=== PATIENT | male | born 1945 | race Caucasian/White ===

== ENCOUNTER 2016-08-21 17:31 | Emergency (ER) | payer MEDICARE ==
[~2016-08-21] VITALS: Ht 172.7 cm; Wt 93.0 kg
[~2016-08-21 17:31] MED LIST: AMBI12.52 PO; AMBI5TAB OR; AMLO10TA OR; AMLO5TAB OR; ASPI81TA83 OR; CIPR500T89 PO; DICY20TA PO; DICY20TA11 PO; FLAG500T PO; IMIT50TA PO; LISI10TA4 OR; Lortab PO; NORCOBULK PO; OMEP40CA2 PO; Prevacid PO; SIMV20TA2 OR; SUMA20SP; SUMA20SP PO; TYLE325T5 PO; ZOCO40TA PO
[2016-08-21 17:32] VITALS: BP 151/83
[2016-08-21] MEDS ORDERED: SERT-155 PO (17:43)
[2016-08-21] MEDS ORDERED: ATEN25TA PO (17:43)
[2016-08-21] MEDS ORDERED: TAMSULOSIN PO (17:43)
[2016-08-21] MEDS ORDERED: methylPREDNISolone INJ 125 MG/2 ML VIAL (J2930) IM ONE (18:00)
[2016-08-21] MEDS ORDERED: KETOROLAC 60 MG/2 ML VIAL (J1885) IM ONE (18:00)
--- NOTE | 2016-08-21 18:29 | REP ---
Lumbar spine five views: Comparison 11/27/2015. There is advanced degenerative disc disease at L 3-4, 4-5 and 5- S1. There are intervertebral disc prosthesis and L4-5 and 05/06. This is unchanged. I suspect there are bilateral laminectomies at L 4 and L5. This is unchanged. There is moderate degenerative disc disease at L1-2 and L2-3. There is a Schmorl's node in the superior endplate of L3. These findings are unchanged. Vertebral body heights and alignment are normal. There is no spondylolysis or spondylolisthesis. There is mild scoliosis convex left. The pedicles, facets and sacroiliac articulations are unremarkable. There is no significant change from the prior study. Signed by Aramis Ulloa MD 08/21/2016 06:20 P
[2016-08-21] MEDS ORDERED: HYDR-3713 PO (18:45)
== END 2016-08-21 19:10 | disposition home or self-care (01) ==
LOC: M ED 17:58
DX: M54.32 Sciatica, left side (principal); I10 Essential (primary) hypertension; G89.29 Other chronic pain; Z88.5 Allergy status to narcotic agent; Z79.82 Long term (current) use of aspirin; Z79.899 Other long term (current) drug therapy; K57.32 Diverticulitis of large intestine without perforation or abscess without bleeding
CPT/HCPCS: 72110; 96372; 99281; J1885; J2930

== ENCOUNTER 2016-08-24 09:44 | Emergency (ER) | payer MEDICARE ==
[~2016-08-24] VITALS: Ht 172.7 cm; Wt 93.0 kg
[2016-08-24 09:44] VITALS: BP 153/70
[~2016-08-24 09:44] MED LIST changes: +ATEN25TA PO; +HYDR-3713 PO; +SERT-155 PO; +TAMSULOSIN PO
[2016-08-24] MEDS ORDERED: GABA-283 PO (09:58)
[2016-08-24] MEDS ORDERED: MORPHINE 4 MG/ML 1ML SYRINGE IM ONE (10:45)
--- NOTE | 2016-08-24 12:12 | ED PDOC ---
Post-Departure Follow-Up AT THIS TIME, RECEIVED CALL FROM MRI STATING PT IS NOT TOLERATING MRI AND CANNOT LAY STILL, DESPITE 2 DIFFERENT MEDICATIONS BEING GIVEN. PT BEING SENT BACK TO THE ED AT THIS TIME. LARON VÁZQUEZ PA-C Aug 24, 2016 12:12
[2016-08-24] MEDS ORDERED: NORCO, ANEXSIA 5/325MG TABLET (HYDROcodone/ACETAMINOPHEN) PO ONE (12:30)
--- NOTE | 2016-08-24 13:04 | REP ---
MRI LUMBAR SPINE WITHOUT CONTRAST: HISTORY: Back pain. The examination is incomplete as only sagittal T2-weighted images were obtained. COMPARISON: 06/21/2006. The patient is status post L4-S1 anterior spinal fusion. Decreased signal intensity on T2-weighted images is present in the L1-2 through L4-5 intervertebral discs. The discs are decreased in height. These findings are consistent with disc degeneration. Disc bulges are present at the L1-2 through L3-4 levels. There is minimal compression of the thecal sac. A disc bulge and small central disc extrusion are present at the L4-5 level. There is minimal effacement of the thecal sac. IMPRESSION: Limited examination demonstrate degenerative change as described above. Signed by Wyatt More MD 08/24/2016 01:29 P
[2016-08-24] MEDS ORDERED: NORCOTAB PO (13:18)
== END 2016-08-24 13:46 | disposition home or self-care (01) ==
LOC: M ED 10:26
DX: M51.36 Other intervertebral disc degeneration, lumbar region (principal); M54.16 Radiculopathy, lumbar region; I10 Essential (primary) hypertension; F32.9 Major depressive disorder, single episode, unspecified; Z86.19 Personal history of other infectious and parasitic diseases
CPT/HCPCS: 72148; 96372; 99281; J3360

== ENCOUNTER → 2016-10-12 | Outpatient (REF) | payer MEDICARE ==
[~2016-10-12] MED LIST changes: +GABA-283 PO; +NORCOTAB PO
[2016-10-12 14:26] LABS: VITAMIN B12 LEVEL 1245 PG/ML
[2016-10-12 14:27] LABS: FOLATE > 24.0 NG/ML
[2016-10-12 20:39] LABS: URIC ACID 5.4 MG/DL (3.5-7.2)
[2016-10-14 14:14] LABS: VITAMIN E LEVEL 15.7 mg/L (5.3-17.5)
== END ==
LOC: M LABNEURO 13:56
PROVIDERS: ATTEND Psychiatry & Neurology Neurology
DX: M25.569 Pain in unspecified knee (principal); R20.0 Anesthesia of skin; Z13.1 Encounter for screening for diabetes mellitus; Z13.29 Encounter for screening for other suspected endocrine disorder

== ENCOUNTER 2017-12-13 10:15 | Day surgery (SDC) | payer MEDICARE ==
[2017-12-13] MEDS: NS 1,000 ML IV (10:30)
[2017-12-13] MEDS ORDERED: fentaNYL 100 MCG/2 ML INJECTION (J3010) As Ordered (12:42)
[2017-12-13] MEDS ORDERED: LIDOCAINE 2% INJ 100 MG/5 ML SDV (FOR ANES.) As Ordered (12:42)
[2017-12-13] MEDS ORDERED: PROPOFOL 200 MG/20 ML VIAL As Ordered (12:42)
== END 2017-12-13 13:35 | disposition home or self-care (01) ==
LOC: M OPP 10:15
DX: Z12.11 Encounter for screening for malignant neoplasm of colon (principal); Z86.010 Personal history of colon polyps; K64.0 First degree hemorrhoids; K57.30 Diverticulosis of large intestine without perforation or abscess without bleeding; R12 Heartburn; K44.9 Diaphragmatic hernia without obstruction or gangrene; I10 Essential (primary) hypertension; E78.5 Hyperlipidemia, unspecified; R73.03 Prediabetes; K57.32 Diverticulitis of large intestine without perforation or abscess without bleeding; Z86.19 Personal history of other infectious and parasitic diseases; K58.9 Irritable bowel syndrome, unspecified; K21.9 Gastro-esophageal reflux disease without esophagitis; R06.02 Shortness of breath; M19.90 Unspecified osteoarthritis, unspecified site; M54.9 Dorsalgia, unspecified; F32.9 Major depressive disorder, single episode, unspecified; G43.909 Migraine, unspecified, not intractable, without status migrainosus; N40.1 Benign prostatic hyperplasia with lower urinary tract symptoms; Z88.5 Allergy status to narcotic agent; Z79.82 Long term (current) use of aspirin; Z79.899 Other long term (current) drug therapy
CPT/HCPCS: G0105

== ENCOUNTER → 2018-04-06 | Outpatient (REF) | payer MEDICARE ==
[2018-04-08 13:25] LABS: HEPATITIS A ANTIBODY IGM NEGATIVE (NEGATIVE); HEPATITIS B CORE ANTIBODY IGM NEGATIVE (NEGATIVE); HEPATITIS B SURFACE ANTIGEN NEGATIVE (NEGATIVE)
[2018-04-08 13:25] LABS: HEPATITIS C VIRUS ABY INDEX 0.1 INDEX (<0.8)
== END ==
LOC: M LAB REF 11:58
DX: R74.8 Abnormal levels of other serum enzymes (principal)
CPT/HCPCS: 87340

== ENCOUNTER 2018-04-13 09:34 | Emergency (ER) | payer OTHER, MEDICARE ==
[~2018-04-13] VITALS: Ht 171.4 cm; Wt 92.7 kg
[~2018-04-13 09:34] MED LIST changes: +AMBI10TA PO; -ASPI81TA83 OR; +ASPI81TA83 PO; +FLOM0.4C39 PO; -GABA-283 PO; +GABA-845 PO; +HYDR-4517 PO; +MELO15TA28 PO; +METO25TA4 PO; +MULT1TAB10 PO; +PANT40TA3 PO; +SIMV20TA2 PO; +TEARSOL10 OU
[2018-04-13] MEDS ORDERED: CRES10TA32 PO (10:01)
[2018-04-13] MEDS ORDERED: RAMI1CAP26 PO (10:01)
[2018-04-13] MEDS ORDERED: NS 1,000 ML IV ONE (10:30)
[2018-04-13] MEDS: HYDROMORPHONE HCL 0.5 MG/ 0.5 ML SYRINGE (J1170 PER 1) IV PRN ×2 (11:23→12:25)
[2018-04-13 11:24] LABS: BASO % 0.3 % (0.0-1.0); EOS # 0.2 10^3/uL (0.0-0.50); EOS % 3.3 % (0.0-3.0); HEMATOCRIT 43.5 % (42.0-52.0); HEMOGLOBIN 14.7 g/dl (13.5-17.5); LYMPH % 28.3 % (24.0-44.0); MEAN CORPUSCULAR HEMOGLOBIN 31.3 pg (27.0-33.0); MEAN CORPUSCULAR HGB CONC 33.8 g/dl (32.0-36.5); MEAN CORPUSCULAR VOLUME 92.8 fl (80.0-96.0); MONO # 0.4 10^3/uL (0.0-0.8); MONO % 6.1 % (0.0-5.0); NEUTROPHILS # 4.4 10^3/uL (1.8-7.7); NEUTROPHILS % 61.7 % (36.0-66.0); PLATELET COUNT, AUTOMATED 194 10^3/uL (150-450); RED BLOOD COUNT 4.69 10^6/uL (4.30-6.10); WHITE BLOOD COUNT 7.2 10^3/uL (4.0-10.0)
--- NOTE | 2018-04-13 11:46 | REP ---
CT LUMBAR SPINE WITHOUT CONTRAST: HISTORY: Right sciatica. A diffuse disc bulge is present at the L1-2 level. There is minimal compression of the thecal sac. The L1 nerves exit the neural foramina without compression. A diffuse disc bulge is present at the L2-3 level. There is hypertrophy of the ligamenta flava and posterior articulating facets. These findings produce moderate central canal stenosis. There is compression of the L2 nerves in the neural foramina. A diffuse disc bulge is present at the L3-4 level. There is hypertrophy of the ligamenta flava and posterior articulating facets. These findings produce moderate central canal stenosis. There is compression of the L3 nerves in the neural foramina. The patient has post L4 to S1 anterior spinal fusion and L4-5 laminectomy and partial left L4-5 facetectomy. Bone graft material is present. A diffuse disc bulge is present at the L4-5 level. There is minimal thecal sac compression. There is hypertrophy of the posterior articulating facets. There is compression of the L4 nerves in the neural foramina. A diffuse disc bulge is present at the L5-S1 level. There is minimal compression of the thecal sac. There is hypertrophy of the posterior articulating facets. There is compression of the L5 nerves in the neural foramina. The lumbar intervertebral discs are decreased in height. Vacuum phenomenon is present at the L3-4 level. These findings are consistent with disc degeneration. There is no fracture or subluxation. IMPRESSION: 1. The patient is status post L4 to S1 anterior spinal fusion and L4-5 laminectomy and partial left L4-5 facetectomy. There is anatomic alignment. 2. Diffuse disc bulge at the L1-2 level with minimal thecal sac compression. 3. Moderate central canal stenosis at the L2-3 and L3-4 levels secondary to disc bulge, ligamentous and facet hypertrophy. There is compression of the L2 and L3 nerves in the neural foramina. 4. Diffuse disc bulges at the L4-5 and L5-S1 levels with minimal thecal sac compression. There is compression of the L4 and L5 nerves in the neural foramina. Electronically Signed by Wyatt More MD 04/13/2018 11:56 A
[2018-04-13 11:52] LABS: APPEARANCE, URINE CLEAR (CLEAR); BACTERIA, URINE AUTO NEGATIVE (NEGATIVE); BILIRUBIN, URINE AUTO NEGATIVE (NEGATIVE); BLOOD, URINE BLOOD NEGATIVE (NEGATIVE); COLOR, URINE YELLOW (YELLOW); GLUCOSE, URINE (UA) AUTO NEGATIVE (NEGATIVE); KETONE, URINE AUTO NEGATIVE (NEGATIVE); LEUKOCYTE ESTERASE, URINE AUTO NEGATIVE (NEGATIVE); MUCUS, URINE SMALL (NEGATIVE); NITRITE, URINE AUTO NEGATIVE (NEGATIVE); PROTEIN, URINE AUTO NEGATIVE (NEGATIVE); RBC, URINE AUTO 1 /HPF (0-3); SPECIFIC GRAVITY URINE AUTO 1.017 (1.002-1.035); SQUAMOUS EPITHELIAL CELL UR AU 0 /HPF (0-6); UROBILINOGEN, URINE AUTO 0.2 mg/dL (0.0-2.0); WBC, URINE AUTO 0 /HPF (0-3)
[2018-04-13 11:59] LABS: BILIRUBIN,DIRECT 0.1 MG/DL (0.0-0.2); BILIRUBIN,TOTAL 0.3 MG/DL (0.2-1.0); CALCIUM LEVEL 8.7 MG/DL (8.8-10.2); CREATININE FOR GFR 1.29 MG/DL (0.70-1.30); POTASSIUM SERUM 4.6 MEQ/L (3.5-5.1); TOTAL PROTEIN 7.3 GM/DL (6.4-8.2)
--- NOTE | 2018-04-13 12:34 | REP ---
RIGHT RIB SERIES: Four views of the right ribs performed. Old fractures are noted of the right 10th and 11th ribs. No definite acute fracture or bone lesion is seen. An accompanying view of the chest demonstrates no acute infiltrate, pneumothorax or pleural effusion. IMPRESSION: Old right 10th and 11th rib fractures. Unreviewed
[2018-04-13] MEDS ORDERED: ROBA500T PO (15:20)
[2018-04-13 15:38] VITALS: BP 148/83
--- NOTE | 2018-04-13 16:10 | REP ---
MR LUMBAR SPINE WITHOUT CONTRAST: HISTORY: Back pain. COMPARISON: CT 04/13/2018 Decreased signal intensity on T2-weighted images is present in the T12-L1 through L4-5 intervertebral discs. The discs are decreased in height. These findings are consistent with disc degeneration. A diffuse disc bulge is present at the L1-2 level. There is minimal compression of the thecal sac. The L1 nerves exit the neural foramina without compression. A diffuse disc bulge is present at the L2-3 level. There is hypertrophy of the ligamenta flava and posterior articulating facets. There is an increase in the amount of epidural fat. These findings produce moderate central canal stenosis. There is compression of the right L2 nerve in the neural foramen. The left L2 nerve exits the neural foramen without compression. A diffuse disc bulge and small central disc protrusion are present at the L3-4 level. There is hypertrophy of the ligamenta flava and posterior articulating facets. There is an increase in the amount of epidural fat. These findings produce moderate central canal stenosis. There is compression of the L3 nerves in the neural foramina. The patient is status post L4 to S1 anterior spinal fusion, L4-5 laminectomy and partial left L4-5 facetectomy. Bone graft material is present. A diffuse disc bulge is present at the L4-5 level. There is minimal compression of the thecal sac. There is hypertrophy of the posterior articulating facets. There is compression of the L4 nerves in the neural foramina. A diffuse disc bulge is present at the L5-S1 level. There is no thecal sac compression. There is hypertrophy of the posterior articulating facets. There is compression of the L5 nerves in the neural foramina. The conus medullaris is normal in appearance terminating at the level of the T12-L1 intervertebral disc. Increased signal intensity on T2-weighted images is present in the endplates of the L2 through L4 vertebral bodies. This represents degenerative change. IMPRESSION: 1. Diffuse disc bulge at the L1-2 level with minimal thecal sac compression. 2. Moderate central canal stenosis at the L2-3 and L3-4 levels secondary to disc bulge, ligamentous and facet hypertrophy and epidural lipomatosis. There is compression of the L3 and right L2 nerves in the neural foramina. 3. The patient is status post L4 - S1 anterior spinal fusion, L4-5 laminectomy and partial left L4-5 facetectomy. There is anatomic alignment. 4. Diffuse disc bulge at the L4-5 level with minimal thecal sac compression. There is compression of the L4 nerves in the neural foramina. 5. Diffuse disc bulge at the L5-S1 level without thecal sac compression. There is compression of the L5 nerves in the neural foramina. Electronically Signed by Wyatt More MD 04/13/2018 04:18 P
--- NOTE | 2018-04-13 16:19 | ED PDOC ---
Post-Departure Follow-Up dr nice faxed formal report of ct ls spine for fu Everardo Yarbrough MD Apr 13, 2018 16:19
--- NOTE | 2018-04-14 15:31 | ED PDOC ---
Post-Departure Follow-Up dr nice faxed formal report of mri ls spine for fu Everardo Yarbrough MD Apr 14, 2018 15:31
== END 2018-04-13 15:37 | disposition home or self-care (01) ==
LOC: EDBD 09:34 → M ED 09:34
DX: M51.37 Other intervertebral disc degeneration, lumbosacral region (principal); M54.31 Sciatica, right side; I10 Essential (primary) hypertension; E78.9 Disorder of lipoprotein metabolism, unspecified; Z79.899 Other long term (current) drug therapy; Z79.82 Long term (current) use of aspirin
CPT/HCPCS: 36415; 71101; 72131; 72148; 80048; 80076; 81001; 83690; 85025; 96374; 96376; 99284; J1170

== ENCOUNTER → 2018-05-18 | Outpatient (REF) | payer MEDICARE ==
[~2018-05-18] MED LIST changes: +CRES10TA32 PO; +RAMI1CAP26 PO; +ROBA500T PO
[2018-05-18 14:20] LABS: FERRITIN 51 NG/ML (26-388); IRON (FE) 127 UG/DL (65-175)
== END ==
LOC: M LAB REF 11:47
PROVIDERS: ATTEND Nurse Practitioner Adult Health
DX: R74.8 Abnormal levels of other serum enzymes (principal)

== ENCOUNTER → 2019-12-28 | Outpatient (CLI) | payer OTHER ==
[~2019-12-28] MED LIST changes: +ASPI81TA86 PO; +CRES10TA PO; -CRES10TA32 PO; +CYCL-707 PO; +DICL75TA PO; +DICY1CAP8 PO; +HYDR-3715 PO; +MULTCAP PO; -NORCOTAB PO; +OMEP1CAP73 PO; +PANT40TA29 PO; -PANT40TA3 PO; +RAMI1CAP22 PO; +REFR0.5D8 OU; -SERT-155 PO; +SERT50TA29 PO; -SIMV20TA2 PO; +SIMV20TA22 PO; +TIZA4TAB4 PO; +TRIA37.53 PO; +[UNRECOGNIZED DRUG - OTHER] PO
== END ==
LOC: M LABSMTC 10:28
PROVIDERS: ATTEND Anesthesiology
DX: Z01.812 Encounter for preprocedural laboratory examination (principal); Z20.828 Contact with and (suspected) exposure to other viral communicable diseases
CPT/HCPCS: C9803; U0003

== ENCOUNTER → 2019-12-29 | Outpatient (CLI) | payer OTHER, MEDICARE ==
--- NOTE | 2020-01-25 11:47 | ECGEPIP ---
[facility] Test Date: 2019-12-29 Pat Name: MANOLO FARRAR Department: Room: OP Gender: Male Rn Clinical: [place] : 1945 Requested By: URF Order Number: [id number] Reading MD: Cindi Moffett Measurements Intervals [place] Rate: 82 P: 43 AR: 200 QRS: -54 QRSD: 122 T: 64 QT: 373 QTc: 438 Interpretive Statements SINUS RHYTHM, FIRST DEGREE BLOCK LEFT ANTERIOR FASCICULAR BLOCK, BIFASICULAR BLOCK T-WAVE ABNORMALITY ILBBB ABNORMAL ECG LAE COPD PATTERN SEE DOWNTIME SCANNED REPORT
== END ==
LOC: M EKG 11:52
PROVIDERS: ATTEND Anesthesiology
DX: Z01.810 Encounter for preprocedural cardiovascular examination (principal); M54.2 Cervicalgia

== ENCOUNTER 2020-01-02 10:45 | Day surgery (SDC) | payer OTHER ==
[~2020-01-02] VITALS: Ht 172.7 cm; Wt 39.6 kg
[2020-01-02] MEDS ORDERED: ONDANSETRON 4MG/2ML VIAL As Ordered ONE (12:10)
[2020-01-02] MEDS ORDERED: LIDOCAINE 2% 100MG/5ML SDV (FOR ANES.) As Ordered ONE (12:10)
[2020-01-02] MEDS ORDERED: propofoL 200 MG/20 ML VIAL As Ordered ONE (12:10)
[2020-01-02] MEDS ORDERED: KETOROLAC 60MG 2ML VIAL As Ordered ONE (12:10)
[2020-01-02] MEDS ORDERED: ROCURONIUM BROMIDE 50 MG/5 ML VIAL As Ordered ONE (12:10)
[2020-01-02] MEDS ORDERED: fentaNYL 100 MCG/2 ML INJECTION (J3010) As Ordered ONE (12:10)
[2020-01-02] MEDS ORDERED: MIDAZOLAM INJ 2MG/2ML VIAL (J2250 PER 1MG) As Ordered ONE (12:10)
[2020-01-02] MEDS ORDERED: dexameTHASONE 4 MG/ML 1ML VIAL (J1100 PER 1MG) As Ordered ONE (12:10)
[2020-01-02] MEDS ORDERED: SUGAMMADEX SODIUM 500 MG/5 ML VIAL (BRIDION) As Ordered ONE (12:10)
[2020-01-02] MEDS ORDERED: LIDOCAINE W/EPINEPHRINE 1% 20ML VIAL As Ordered ONE (12:17)
[2020-01-02] MEDS ORDERED: BACITRACIN OINTMENT 30GM TUBE As Ordered ONE (12:17)
[2020-01-02] MEDS ORDERED: ePHEDrine SULFATE 25 MG/5 ML(5MG/ML) SYRINGE As Ordered ONE (13:31)
[2020-01-02] MEDS ORDERED: GLYCOPYRROLATE INJ 0.2 MG/ML 2 ML VIAL As Ordered ONE (13:50)
[2020-01-02] MEDS ORDERED: SUCCINYLCHOLINE 100 MG/5 ML SYRINGE (J0330) As Ordered ONE (14:02)
[2020-01-02] MEDS ORDERED: ACETAMINOPHEN 500 MG TAB PO PRN (14:15)
[2020-01-02] MEDS ORDERED: LR 1,000 ML IV SCH ×2 (14:15→15:45)
[2020-01-02] MEDS ORDERED: PERCOCET 5MG/325MG TAB As Ordered ONE (14:58)
[2020-01-02] MEDS ORDERED: fentaNYL 100 MCG/2 ML INJECTION (J3010) IV PRN (15:45)
[2020-01-02] MEDS ORDERED: METOCLOPRAMIDE INJ 10MG/2ML VIAL (J2765 PER 1) IV PRN (15:45)
[2020-01-02] MEDS ORDERED: PERCOCET 5MG/325MG TAB PO PRN (15:45)
[2020-01-02] MEDS ORDERED: ONDANSETRON 4MG/2ML VIAL IV PRN (15:45)
[2020-01-02 15:51] VITALS: BP 133/80
--- NOTE | 2020-01-25 12:21 | RO ---
DATE OF OPERATION: 01/02/2020 PREOPERATIVE DIAGNOSIS: Neck mass. POSTOPERATIVE DIAGNOSIS: Neck mass. OPERATIVE PROCEDURE: Excision of neck mass. SURGEON: Jean-Claude Anglin MD PROCEDURE IN DETAIL: Under general anesthesia with the patient supine, the patient was prepped and draped in the usual manner. I infiltrated the area with lidocaine with epinephrine. I used the Harmonic scalpel. I divided the skin and subcutaneous tissues. I dissected the skin off of the lipoma. I dissected the lipoma free from superior for the skin and then from [id number]. Bleeding was controlled with cautery. A quarter-inch Andrae drain was placed in the wound. The wound was closed with 4-0 Vicryl and nisha. The patient was transferred to the recovery room in excellent condition. DM
== END 2020-01-02 15:56 | disposition home or self-care (01) ==
LOC: M SDC 10:45
PROVIDERS: ATTEND Otolaryngology
DX: D17.0 Benign lipomatous neoplasm of skin and subcutaneous tissue of head, face and neck (principal); I10 Essential (primary) hypertension; E78.00 Pure hypercholesterolemia, unspecified; K21.9 Gastro-esophageal reflux disease without esophagitis; K57.92 Diverticulitis of intestine, part unspecified, without perforation or abscess without bleeding; F32.9 Major depressive disorder, single episode, unspecified; Z79.82 Long term (current) use of aspirin; Z79.899 Other long term (current) drug therapy; K58.8 Other irritable bowel syndrome; M10.9 Gout, unspecified
CPT/HCPCS: 11426; 88304; J0330; J1100; J1885; J2250; J2405; J3010; P9045

== ENCOUNTER → 2020-09-05 | Outpatient (CLI) | payer MEDICARE, OTHER ==
[~2020-09-05] MED LIST changes: +ISOVUE-370 76% 100ML VIAL As Ordered ONE
--- NOTE | 2020-09-05 10:46 | REP ---
INDICATION: THORACIC AORTIC ANEURYSM, WITHOUT RUPTURE. COMPARISON: Comparison CT study is from July 11, 2015.. TECHNIQUE: Helical scanning is acquired following the intravenous injection of 75 mL of Isovue 370. 3 mm axial images re-formatted. Coronal and sagittal MPR and coronal MIP images are provided. FINDINGS: There is good opacification of the thoracic aorta and the pulmonary arterial tree. The thoracic aorta is tortuous and ectatic but no jordan aneurysm is seen. The ascending aortic root measures of 4.5 cm in greatest anteroposterior dimension at the level of the right main pulmonary artery by a 4.2 cm in transverse dimension. The transverse aorta measures 3.4 cm. The proximal descending aorta measures 3.4 cm and the distal descending aorta measurements are 2.9 x 2.8 cm AP by transverse. There is mild vascular calcification in the distal aortic arch and at the great vessel origins. Great vessels are otherwise unremarkable. There is no evidence of dissection or significant luminal thrombus. On prior CT study from July 11, 2015 the ascending aortic dimension was 4.4 cm anterior to posterior. And there is no filling defect in the pulmonary arterial tree to suggest pulmonary embolus. There are surgical clips at the gastroesophageal junction. A small cyst is seen in the left kidney. Visualized upper abdominal structures are otherwise unremarkable. No hilar or mediastinal mass or adenopathy is observed. On lung window settings, there is minimal linear fibrosis in the lingula at the left lung base and in the right lower lobe. No infiltrate is seen. No pulmonary mass or significant nodule is appreciated. No pleural or pericardial effusion is seen. No bony destructive lesion is appreciated. IMPRESSION: Ectasias and tortuosity of thoracic aorta. Ascending aorta measures 4.5 cm in AP dimension. No jordan aneurysm. <Electronically signed by Narayan Atkinson > 09/05/20 1041
== END ==
LOC: M RAD 08:13
PROVIDERS: ATTEND Nurse Practitioner Adult Health
DX: I71.2 Thoracic aortic aneurysm, without rupture (principal)
CPT/HCPCS: 71260; Q9967

== ENCOUNTER → 2020-11-14 | Outpatient (CLI) | payer MEDICARE ==
[~2020-11-14] MED LIST changes: +GABA-283 PO; -GABA-845 PO; -ISOVUE-370 76% 100ML VIAL As Ordered ONE
--- NOTE | 2020-11-14 16:21 | REP ---
INDICATION: SHORTNESS OF BREATH. COMPARISON: Comparison radiographs are from April 13, 2018. TECHNIQUE: Two views.. FINDINGS: The lungs are symmetrically aerated and clear. The pleural angles are sharp. Heart size is normal. Pleural angles are sharp. There are surgical clips in the region the gastroesophageal junction. There is evidence of arthropathy in the shoulders bilaterally. No acute bony abnormality is seen.. Pulmonary vasculature is not increased. IMPRESSION: No active cardiopulmonary disease.. <Electronically signed by Narayan Atkinson > 11/14/20 2042
== END ==
LOC: M WUC 13:30
PROVIDERS: ATTEND Nurse Practitioner Adult Health
DX: R06.02 Shortness of breath (principal)

== ENCOUNTER 2021-04-14 09:45 | Emergency (ER) | payer MEDICARE, SELFPAY ==
[~2021-04-14] VITALS: Ht 171.4 cm; Wt 86.5 kg
--- OUTSIDE RECORDS SUMMARY | 2021-04-14 09:52 | CCD | Continuity of Care Document ---
Author Author Jt ROSENTHAL Organization Unknown Address [address] [place] [address], [facility] [address] [place] [address] Phone [phone] Care Team Providers Care Property And Supply Officer Name Role Phone Dennis Hardwick MD AUTM [phone] Problems Active Problems Provider Date Essential hypertension GLORIA Ramos Onset: 11/30/2016 Pure hypercholesterolemia GLORIA Ramos Onset: 017 Type 2 diabetes mellitus Mary Correia MD Onset: Social History Type Date Description Comments Sex Unknown ETOH Use Rarely consumes alcohol Tobacco Use Start: Unknown Denies Smoking Allergies and adverse reactions Active Allergies Criticality Reaction | Severity Comments Date Codeine Unable to assess criticality 11/30/2016 Medications Active Medications SIG Qnty Indications Ordering Provide r Date Euflexxa 20mg/2ML Soln Prefill Syr champ bilateral #1 iid/rm 08/31/2019 bilateral #2 iid/rm 09/07/2019 marlene knee #3 09/13/2019 iid/sw Александр Smith MD 08/31/2019 Gabapentin 400mg Capsules Twi ce A Day Unknown Hydrocodone-Acetaminophen 10-325mg Tablets Every 6-8 Hours As Needed as needed for Pain Unknown Meloxicam 15mg Tablets Daily Unknown Pantoprazole Sodium 40mg Tablets DR Daily Unknown Ramipril 10mg Capsules Unknown Rosuvastatin Calcium 10mg Tablets Unknown Sertraline HCL 50mg Tablets Daily At Bedtime 30tabs Unknown Tamsulosin HCL 0.4mg Capsules Every Evening Unknown Zolpidem Tartrate 10mg Tablets Daily At Bedtime Unknown Tizanidine HCL 4mg Capsules Tammie Zavala RN Canp Dicyclomine HCL 10mg Capsules Tammie Zavala RN Canp Metformin HCL ER 500mg Tablets ER 24HR Tammie Zavala RN Canp Immunizations Description No Information Available Vital Signs Date Vital Result Comment 10/02/2020 11:17am Body Temperature 96.5 F Height 67 inches 5'7" Weight 193.00 lb BMI (Body Mass Index) 30.2 kg/m2 05/06/2020 2:54pm Body Temperature 97.3 F Results Description No Information Available Procedures Date Code Description Status 01/29/2021 23829 Office/Outpatient Established Mo d MDM 30-39 Min Completed 01/29/2021 56950 Inject/Drain Joint/Bursa Major C ompleted 01/29/2021 56513 Inject/Drain Joint/Bursa Major C ompleted 10/02/2020 21951 Inject/Drain Joint/Bursa Major C ompleted 09/03/2020 95790 Office/Outpatient Established Mo d MDM 30-39 Min Completed 09/03/2020 75918 X-Ray Shoulder Complete Complete d 09/03/2020 51350 Inject/Drain Joint/Bursa Major C ompleted 09/02/2020 50326 Office/Outpatient Established Mo d MDM 30-39 Min Completed 09/02/2020 16239 Inject/Drain Joint/Bursa Major C ompleted 09/02/2020 13530 Inject/Drain Joint/Bursa Major C ompleted Medical Devices Description No Information Available Encounters Type Date Location Provider Dx Diagnosis Office Visit 01/29/2021 10:30a [facility] GLORIA Ramos M19.011 Primary osteoarthritis, right shoulder M17.0 Bilateral primary osteoarthr itis of knee Office Visit 10/02/2020 11:00a [facility] Champion M17.0 Bilateral primary osteoarthritis of knee Office Visit 09/03/2020 8:30a [facility] M19.011 Primary osteoarthritis, right shoulder Office Visit 09/02/2020 4:30p [facility] GLORIA Ramos M17.0 Bilateral primary osteoarthritis of knee Assessments Date Code Description Provider 01/29/2021 M19.011 Primary osteoarthritis, right sh GLORIA Nguyen 01/29/2021 M17.0 Bilateral primary osteoarthritis of knee GLORIA Ramos 10/02/2020 M17.0 Bilateral primary osteoarthritis of knee GLORIA Ramos 09/03/2020 M19.011 Primary osteoarthritis, right sh [place] GLORIA Ramos 09/02/2020 M17.0 Bilateral primary osteoarthritis of knee GLORIA Ramos Plan of Treatment 01/29/2021 - GLORIA Ramos* M19.011 Primary osteoarthritis, right shoulder * Follow up:* 10 weeks right shoulder recheck with xray with IID PRN for Bilateral Knees * M17.0 Bilateral primary osteoarthritis of knee Functional Status Description No Information Available Mental Status Description No Information Available Referrals Refer to Reason for Referral Status Appt Date Gael Rosenthal Pac Bilateral knee Gel-one Appro steffen. See chart. Passing to Umm Cortez for order and appt. Created [address] [facility] [address] [place] [address] [phone]
--- OUTSIDE RECORDS SUMMARY | 2021-04-14 09:52 | CCD ---
Author Author [facility] Organization [facility] Address Unknown Phone Unavailable Care Team Providers Care Outpatient Pharmacy Manager Name Role Phone NO, PCP Unavailable Unavailable Diego Conley MD Unavailable Unavailable Diego Conley MD Unavailable Unavailable Diego Conley MD Unavailable Unavailable Diego Conley MD Unavailable Unavailable Diego Conley MD Unavailable Unavailable Diego Conley MD Unavailable Unavailable Diego Conley MD Unavailable Unavailable Diego Conley MD Unavailable Unavailable Diego Conley MD Unavailable Unavailable Diego Conley MD Unavailable Unavailable Diego Conley MD Unavailable Unavailable Diego Conley MD Unavailable Unavailable Diego Conley MD Unavailable Unavailable Diego Conley MD Unavailable Unavailable Diego Conley MD Unavailable Unavailable Diego Conley MD Unavailable Unavailable Diego Conley MD Unavailable Unavailable Diego Conley MD Unavailable Unavailable Diego Conley MD Unavailable Unavailable Diego Conley MD Unavailable Unavailable Diego Conley MD Unavailable Unavailable iDego Conley MD Unavailable Unavailable Diego Conley MD Unavailable Unavailable Diego Conley MD Unavailable Unavailable Diego Conley MD Unavailable Unavailable Diego Conley MD Unavailable Unavailable Diego Conley MD Unavailable Unavailable Diego Conley MD Unavailable Unavailable Diego Conley MD Unavailable Unavailable Diego Conley MD Unavailable Unavailable Diego Conley MD Unavailable Unavailable Diego Conley MD Unavailable Unavailable Bolla, S Tommy MD Unavailable Unavailable Diego Conley MD Unavailable Unavailable Diego Conley MD Unavailable Unavailable Diego Conley MD Unavailable Unavailable Diego Conley MD Unavailable Unavailable Diego Conley MD Unavailable Unavailable Diego Conley MD Unavailable Unavailable Diego Conley MD Unavailable Unavailable Diego Conley MD Unavailable Unavailable Diego Conley MD Unavailable Unavailable Diego Conley MD Unavailable Unavailable Diego Conley MD Unavailable Unavailable Diego Conley MD Unavailable Unavailable Diego Conley MD Unavailable Unavailable Diego Conley MD Unavailable Unavailable Diego Conley MD Unavailable Unavailable Diego Conley MD Unavailable Unavailable LAURITA, J Tammie ANP Unavailable Unavailable LAURITA, J Tammie ANP Unavailable Unavailable LAURITA, J Tammie ANP Unavailable Unavailable LAURITA, J Tammie ANP Unavailable Unavailable LAURITA, J Tammie ANP Unavailable Unavailable LAURITA, J Tammie ANP Unavailable Unavailable LAURITA, J Tammie ANP Unavailable Unavailable LAURITA, J Tammie ANP Unavailable Unavailable LAURITA, J Tammie ANP Unavailable Unavailable LAURITA, J Tammie ANP Unavailable Unavailable LAURITA, J Tammie ANP Unavailable Unavailable LAURITA, J Tammie ANP Unavailable Unavailable LAURITA, J Tammie ANP Unavailable Unavailable LAURITA, J Tammie ANP Unavailable Unavailable LAURITA, J Tammie ANP Unavailable Unavailable LAURITA, J Tammie ANP Unavailable Unavailable LAURITA, J Tammie ANP Unavailable Unavailable LAURITA, J Tammie ANP Unavailable Unavailable LAURITA, J Tammie ANP Unavailable Unavailable LAURITA, J Tammie ANP Unavailable Unavailable LAURITA, J Tammie ANP Unavailable Unavailable LAURITA, J Tammie ANP Unavailable Unavailable LAURITA, J Tammie ANP Unavailable Unavailable LAURITA, J Tammie ANP Unavailable Unavailable LAURITA, J Tammie ANP Unavailable Unavailable LAURITA, J Tammie ANP Unavailable Unavailable LAURITA, J Tammie ANP Unavailable Unavailable LAURITA, J Tammie ANP Unavailable Unavailable LAURITA, J Tammie ANP Unavailable Unavailable LAURITA, J Tammie ANP Unavailable Unavailable LAURITA, J Tammie ANP Unavailable Unavailable LAURITA, J Tammie ANP Unavailable Unavailable LAURITA, J Tammie ANP Unavailable Unavailable LAURITA, J Tammie ANP Unavailable Unavailable LAURITA, J Tammie ANP Unavailable Unavailable LAURITA, J Tammie ANP Unavailable Unavailable LAURITA, J Tammie ANP Unavailable Unavailable LAURITA, J Tammie ANP Unavailable Unavailable LAURITA, J Tammie ANP Unavailable Unavailable LAURITA, J Tammie ANP Unavailable Unavailable LAURITA, J Tammie ANP Unavailable Unavailable LAURITA, J Tammie ANP Unavailable Unavailable LAURITA, J Tammie ANP Unavailable Unavailable LAURITA, J Tammie ANP Unavailable Unavailable LAURITA, J Tammie ANP Unavailable Unavailable LAURITA, J Tammie ANP Unavailable Unavailable LAURITA, J Tammie ANP Unavailable Unavailable LAURITA, J Tammie ANP Unavailable Unavailable LAURITA, J Tammie ANP Unavailable Unavailable LAURITA, J Tammie ANP Unavailable Unavailable LAURITA, J Tammie ANP Unavailable Unavailable LAURITA, J Tammie ANP Unavailable Unavailable LAURITA, J Tammie ANP Unavailable Unavailable LAURITA, J Tammie ANP Unavailable Unavailable LAURITA, J Tammie ANP Unavailable Unavailable LAURITA, J Tammie ANP Unavailable Unavailable LAURITA, J Tammie ANP Unavailable Unavailable LAURITA, J Tammie ANP Unavailable Unavailable LAURITA, J Tammie ANP Unavailable Unavailable LAURITA, J Tammie ANP Unavailable Unavailable LAURITA, J Tammie ANP Unavailable Unavailable LAURITA, J Tammie ANP Unavailable Unavailable LAURITA, J Tammie ANP Unavailable Unavailable LAURITA, J Tammie ANP Unavailable Unavailable Koloms, Praveena MD Unavailable Unavailable Koloms, Praveena MD Unavailable Unavailable Koloms, Praveena MD Unavailable Unavailable Koloms, Praveena MD Unavailable Unavailable Koloms, Praveena MD Unavailable Unavailable Koloms, Praveena MD Unavailable Unavailable Koloms, Praveena MD Unavailable Unavailable Koloms, Praveena MD Unavailable Unavailable Koloms, Praveena MD Unavailable Unavailable Koloms, Praveena MD Unavailable Unavailable Koloms, Praveena MD Unavailable Unavailable Koloms, Praveena MD Unavailable Unavailable Koloms, Praveena MD Unavailable Unavailable Koloms, Praveena MD Unavailable Unavailable Koloms, Praveena MD Unavailable Unavailable Koloms, Praveena MD Unavailable Unavailable Koloms, Praveena MD Unavailable Unavailable Koloms, Praveena MD Unavailable Unavailable Koloms, Praveena MD Unavailable Unavailable Koloms, Praveena MD Unavailable Unavailable Koloms, Praveena MD Unavailable Unavailable Koloms, Praveena MD Unavailable Unavailable Koloms, Praveena MD Unavailable Unavailable Koloms, Praveena MD Unavailable Unavailable Koloms, Praveena MD Unavailable Unavailable Koloms, Praveena MD Unavailable Unavailable Koloms, Praveena MD Unavailable Unavailable Koloms, Praveena MD Unavailable Unavailable Koloms, Praveena MD Unavailable Unavailable Koloms, Praveena MD Unavailable Unavailable Koloms, Praveena MD Unavailable Unavailable Koloms, Praveena MD Unavailable Unavailable KolomsPraveena MD Unavailable Unavailable Fish CampIván MD Unavailable Unavailable Fish CampIván MD Unavailable Unavailable Fish CampIván MD Unavailable Unavailable RonenIván MD Unavailable Unavailable RonenIván MD Unavailable Unavailable Fish CampIván MD Unavailable Unavailable Fish CampIván MD Unavailable Unavailable RonenIván MD Unavailable Unavailable RonenIván MD Unavailable Unavailable RonenIván MD Unavailable Unavailable Fish CampIván MD Unavailable Unavailable RonenIván MD Unavailable Unavailable Fish CampIván MD Unavailable Unavailable RonenIván MD Unavailable Unavailable Fish CampIván MD Unavailable Unavailable Fish CampIván MD Unavailable Unavailable RonenIván MD Unavailable Unavailable RonenIván MD Unavailable Unavailable RonenIván MD Unavailable Unavailable RonenIván MD Unavailable Unavailable Fish CampIván MD Unavailable Unavailable Fish CampIván MD Unavailable Unavailable RonenIván MD Unavailable Unavailable Fish CampIván MD Unavailable Unavailable Fish CampIván MD Unavailable Unavailable Fish CampIván MD Unavailable Unavailable Fish CampIván MD Unavailable Unavailable Fish CampIván MD Unavailable Unavailable Fish CampIván MD Unavailable Unavailable RonenIván MD Unavailable Unavailable RonenIván MD Unavailable Unavailable Fish CampIván MD Unavailable Unavailable Fish CampIván MD Unavailable Unavailable RonenIván ramirez MD Unavailable Unavailable Fish CampIván ramirez MD Unavailable Unavailable RonenIván MD Unavailable Unavailable Fish CampIván MD Unavailable Unavailable Fish CampIván MD Unavailable Unavailable Fish CampIván MD Unavailable Unavailable RonenIván ramirez MD Unavailable Unavailable RonenIván MD Unavailable Unavailable Fish CampIván MD Unavailable Unavailable RonenIván MD Unavailable Unavailable Fish CampIván MD Unavailable Unavailable RonenIván MD Unavailable Unavailable RonenIván MD Unavailable Unavailable RonenIván MD Unavailable Unavailable RonenIván MD Unavailable Unavailable Fish CampIván MD Unavailable Unavailable Fish CampIván MD Unavailable Unavailable RonenIván MD Unavailable Unavailable RonenIván MD Unavailable Unavailable RonenIván MD Unavailable Unavailable Fish CampIván MD Unavailable Unavailable RonenIván MD Unavailable Unavailable RonenIván MD Unavailable Unavailable RonenIván MD Unavailable Unavailable RonenIván MD Unavailable Unavailable Fish CampIván MD Unavailable Unavailable RonenIván MD Unavailable Unavailable Fish CampIván MD Unavailable Unavailable Fish CampIván MD Unavailable Unavailable Fish CampIván MD Unavailable Unavailable Fish CampIván MD Unavailable Unavailable Fish CampIván MD Unavailable Unavailable RonenIván MD Unavailable Unavailable Fish CampIván MD Unavailable Unavailable RonenIván MD Unavailable Unavailable RonenIván MD Unavailable Unavailable Fish CampIván MD Unavailable Unavailable Fish CampIván MD Unavailable Unavailable Fish CampIván MD Unavailable Unavailable RonenIván MD Unavailable Unavailable RonenIván MD Unavailable Unavailable RonenIván MD Unavailable Unavailable Fish CampIván MD Unavailable Unavailable RonenIván MD Unavailable Unavailable RonenIván MD Unavailable Unavailable Fish CampIván MD Unavailable Unavailable RonenIván MD Unavailable Unavailable Fish CampIván MD Unavailable Unavailable RonenIván MD Unavailable Unavailable Fish CampIván ramirez MD Unavailable Unavailable RonenIván MD Unavailable Unavailable RonenIván MD Unavailable Unavailable Fish CampIván MD Unavailable Unavailable Fish CampIván MD Unavailable Unavailable Jumalon, M Consuelo COMMUNITY SERVICE AIDE Unavailable Unavailable Jumalon, M Consuelo COMMUNITY SERVICE AIDE Unavailable Unavailable Jumalon, M Consuelo COMMUNITY SERVICE AIDE Unavailable Unavailable Jumalon, M Consuelo COMMUNITY SERVICE AIDE Unavailable Unavailable Jumalon, M Consuelo COMMUNITY SERVICE AIDE Unavailable Unavailable Jumalon, M Consuelo COMMUNITY SERVICE AIDE Unavailable Unavailable Jumalon, M Consuelo COMMUNITY SERVICE AIDE Unavailable Unavailable Jumalon, M Consuelo COMMUNITY SERVICE AIDE Unavailable Unavailable Jumalon, M Consuelo COMMUNITY SERVICE AIDE Unavailable Unavailable Jumalon, M Consuelo COMMUNITY SERVICE AIDE Unavailable Unavailable Jumalon, M Consuelo COMMUNITY SERVICE AIDE Unavailable Unavailable Jumalon, M Consuelo COMMUNITY SERVICE AIDE Unavailable Unavailable Jumalon, M Consuelo COMMUNITY SERVICE AIDE Unavailable Unavailable Jumalon, M Consuelo COMMUNITY SERVICE AIDE Unavailable Unavailable Jumalon, M Consuelo COMMUNITY SERVICE AIDE Unavailable Unavailable Jumalon, M Consuelo COMMUNITY SERVICE AIDE Unavailable Unavailable Jumalon, M Consuelo COMMUNITY SERVICE AIDE Unavailable Unavailable Jumalon, M Consuelo COMMUNITY SERVICE AIDE Unavailable Unavailable Jumalon, M Consuelo COMMUNITY SERVICE AIDE Unavailable Unavailable Jumalon, M Consuelo COMMUNITY SERVICE AIDE Unavailable Unavailable Jumalon, M Consuelo COMMUNITY SERVICE AIDE Unavailable Unavailable Jumalon, M Consuelo COMMUNITY SERVICE AIDE Unavailable Unavailable Jumalon, M Consuelo COMMUNITY SERVICE AIDE Unavailable Unavailable Jumalon, M Consuelo COMMUNITY SERVICE AIDE Unavailable Unavailable Jumalon, M Consuelo COMMUNITY SERVICE AIDE Unavailable Unavailable Jumalon, M Cosnuelo COMMUNITY SERVICE AIDE Unavailable Unavailable Jumalon, M Consuelo COMMUNITY SERVICE AIDE Unavailable Unavailable Jumalon, M Consuelo COMMUNITY SERVICE AIDE Unavailable Unavailable Jumalon, M Consuelo COMMUNITY SERVICE AIDE Unavailable Unavailable Jumalon, M Consuelo COMMUNITY SERVICE AIDE Unavailable Unavailable DRAZEK, I ADDY PA Unavailable Unavailable DRAZEK, I ADDY PA Unavailable Unavailable DRAZEK, I ADDY PA Unavailable Unavailable DRAZEK, I ADDY PA Unavailable Unavailable DRAZEK, I ADDY PA Unavailable Unavailable DRAZEK, I ADDY PA Unavailable Unavailable DRAZEK, I ADDY PA Unavailable Unavailable DRAZEK, I ADDY PA Unavailable Unavailable DRAZEK, I ADDY PA Unavailable Unavailable DRAZEK, I ADDY PA Unavailable Unavailable DRAZEK, I ADDY PA Unavailable Unavailable DRAZEK, I ADDY PA Unavailable Unavailable DRAZEK, I ADDY PA Unavailable Unavailable DRAZEK, I ADDY PA Unavailable Unavailable DRAZEK, I ADDY PA Unavailable Unavailable DRAZEK, I ADDY PA Unavailable Unavailable DRAZEK, I ADDY PA Unavailable Unavailable DRAZEK, I ADDY PA Unavailable Unavailable DRAZEK, I ADDY PA Unavailable Unavailable DRAZEK, I ADDY PA Unavailable Unavailable DRAZEK, I ADDY PA Unavailable Unavailable DRAZEK, I ADDY PA Unavailable Unavailable DRAZEK, I ADDY PA Unavailable Unavailable DRAZEK, I ADDY PA Unavailable Unavailable DRAZEK, I ADDY PA Unavailable Unavailable DRAZEK, I ADDY PA Unavailable Unavailable DRAZEK, I ADDY PA Unavailable Unavailable DRAZEK, I ADDY PA Unavailable Unavailable DRAZEK, I ADDY PA Unavailable Unavailable DRAZEK, I ADDY PA Unavailable Unavailable LAURITA, J Tammie ANP Unavailable Unavailable LAURITA, J Tammie ANP Unavailable Unavailable LAURITA, J Tammie ANP Unavailable Unavailable LAURITA, J Tammie ANP Unavailable Unavailable LAURITA, J Tammie ANP Unavailable Unavailable LAURITA, J Tammie ANP Unavailable Unavailable LAURITA, J Tammie ANP Unavailable Unavailable LAURITA, J Tammie ANP Unavailable Unavailable LAURITA, J Tammie ANP Unavailable Unavailable LAURITA, J Tammie ANP Unavailable Unavailable LAURITA, J Tammie ANP Unavailable Unavailable LAURITA, J Tammie ANP Unavailable Unavailable LAURITA, J Tammie ANP Unavailable Unavailable LAURITA, J Tammie ANP Unavailable Unavailable LUARITA, J Tammie ANP Unavailable Unavailable LAURITA, J Tammie ANP Unavailable Unavailable LAURITA, J Tammie ANP Unavailable Unavailable LAURITA, J Tammie ANP Unavailable Unavailable LAURITA, J Tammie ANP Unavailable Unavailable LAURITA, J Tammie ANP Unavailable Unavailable LAURITA, J Tammie ANP Unavailable Unavailable LAURITA, J Tammie ANP Unavailable Unavailable LAURITA, J Tammie ANP Unavailable Unavailable LAURITA, J Tammie ANP Unavailable Unavailable LAURITA, J Tammie ANP Unavailable Unavailable LAURITA, J Tammie ANP Unavailable Unavailable LAURITA, J Tammie ANP Unavailable Unavailable LAURITA, J Tammie ANP Unavailable Unavailable LAURITA, J Tammie ANP Unavailable Unavailable LAURITA, J Tammie ANP Unavailable Unavailable LAURITA, J Tammie ANP Unavailable Unavailable LAURITA, J Tammie ANP Unavailable Unavailable LAURITA, J Tammie ANP Unavailable Unavailable LAURITA, J Tammie ANP Unavailable Unavailable LAURITA, J Tammie ANP Unavailable Unavailable LAURITA, J Tammie ANP Unavailable Unavailable LAURITA, J Tammie ANP Unavailable Unavailable LAURITA, J Tammie ANP Unavailable Unavailable LAURITA, J Tammie ANP Unavailable Unavailable LAURITA, J Tammie ANP Unavailable Unavailable LAURITA, J Tammie ANP Unavailable Unavailable LAURITA, J Tammie ANP Unavailable Unavailable LAURITA, J Tammie ANP Unavailable Unavailable LAURITA, J Tammie ANP Unavailable Unavailable LAURITA, J Tammie ANP Unavailable Unavailable LAURITA, J Tammie ANP Unavailable Unavailable LAURITA, J Tammie ANP Unavailable Unavailable LAURITA, J Tammie ANP Unavailable Unavailable LAURITA, J Tammie ANP Unavailable Unavailable LAURITA, J Tammie ANP Unavailable Unavailable LAURITA, J Tammie ANP Unavailable Unavailable LAURITA, J Tammie ANP Unavailable Unavailable LAURITA, J Tammie ANP Unavailable Unavailable LAURITA, J Tammie ANP Unavailable Unavailable LAURITA, J Tammie ANP Unavailable Unavailable LAURITA, J Tammie ANP Unavailable Unavailable LAURITA, J Tammie ANP Unavailable Unavailable LAURITA, J Tammie ANP Unavailable Unavailable LAURITA, J Tammie ANP Unavailable Unavailable LAURITA, J Tammie ANP Unavailable Unavailable LAURITA, J Tammie ANP Unavailable Unavailable LAURITA, J Tammie ANP Unavailable Unavailable LAURITA, J Tammie ANP Unavailable Unavailable LAURITA, J Tammie ANP Unavailable Unavailable Re-disclosure Warning The records that you are about to access may contain information from federally-assisted alcohol or drug abuse programs. If such information is present, then the following federally mandated warning applies: This information has been disclosed to you from records protected by federal confidentiality rules (42 CFR part 2). The federal rules prohibit you from making any further disclosure of this information unless further disclosure is expressly permitted by the written consent of the person to whom it pertains or as otherwise permitted by 42 CFR part 2. A general authorization for the release of medical or other information is NOT sufficient for this purpose. The Federal rules restrict any use of the information to criminally investigate or prosecute any alcohol or drug abuse patient.The records that you are about to access may contain highly sensitive health information, the redisclosure of which is protected by Article 27-F of the [facility] Public Health law. If you continue you may have access to information: Regarding HIV / AIDS; Provided by facilities licensed or operated by the [facility] Office of Mental Health; or Provided by the [facility] Office for People With Developmental Disabilities. If such information is present, then the following [facility] mandated warning applies: This information has been disclosed to you from confidential records which are protected by state law. State law prohibits you from making any further disclosure of this information without the specific written consent of the person to whom it pertains, or as otherwise permitted by law. Any unauthorized further disclosure in violation of state law may result in a fine or halfway sentence or both. A general authorization for the release of medical or other information is NOT sufficient authorization for further disc losure. Allergies and Adverse Reactions Type Description Substance Reaction Status Data Source(s ) Drug allergy CODEINE CODEINE [facility] Family History Family Member Name Family Member Gender Family Member Status Date o f Status Description Data Source(s) Unknown Unknown Problem [facility] ([facility]) 1 son passed at age 47 of endocarditis; the others are on good health Unknown Unknown Problem [facility] ([facility]) Unknown Unknown Problem [facility] ([facility]) Unknown Male Problem [facility] ([facility] ) Unknown Unknown Problem [facility] ([facility] ) Encounters Encounter Providers Location Date Indications Data Source(s ) Outpatient Attender: ADDY CASTRO Physical Therapy 01/29/2021 1 0:30:00 AM EDT [facility] ([facility]) Outpatient Attender: Tammie Moffett 08/2020 09:00:00 AM EDT [facility] ([facility] ) Outpatient Referrer: Tammie ROSS SJLupe.[email or web address] 11/29 12:00:00 AM EDT - 11/29/2020 11:52:[address] [facility] Outpatient Attender: Tammie Moffett 09:20:00 AM EDT [facility] ([facility] ) Office Visit Attender: ADDY CASTRO Physical Therapy 2020 11:00:00 AM EDT [facility] ([facility] ) Outpatient Attender: ADDY CASTRO Physical Therapy 09/03/2020 0 8:30:00 AM EDT [facility] ([facility]) Outpatient Attender: ADDY CASTRO Physical Therapy 09/02/2020 0 4:30:00 PM EDT [facility] ([facility]) Outpatient Attender: Praveena Reddy MDConsultant: PCP NO 08/28/2020 06:30:00 AM EDT - 08/28/2020 09:09:00 AM EDT [facility] Patient discharged. Outpatient Attender: Praveena Reddy MDConsultant: PCP NO 08/21/2020 07:00:00 AM EDT - 08/21/2020 09:28:00 AM EDT [facility] Patient discharged. Outpatient Attender: Praveena Reddy MDConsultant: PCP NO 08/15/2020 12:24:14 PM EDT - 08/16/2020 01:28:00 PM EDT [facility] Patient discharged. Outpatient Attender: Dennis Moffett 0 08/13/2020 01:30:00 PM EDT [facility] ([facility] ) Outpatient Attender: Tammie Moffett 08/2020 08:00:00 AM EST [facility] ([facility] ) OFFICE OUTPATIENT VISIT 15 MINUTES Attender: ADDY CASTRO Phys ical Therapy 05/06/2020 01:15:00 PM EST [facility] ([facility]) Consuelo Santiago Tera, BEAM MACHINE OPERATOR: [id number], [place] [address], Ph. Attender: Consuelo Haley COMMUNITY SERVICE AIDE [place] - [facility] Office 04/03/2020 12:00:00 AM EST ATHE NA ([facility]) Tommy Conley MD: [id number], [facility] [place] [address], Ph. Attender: Tommy Conley MD [place] - [facility] 03/18/2020 12:00:00 AM EST PATRICIA ([facility]) Tommy Conley MD: [id number], [place] [address], Ph. Attender: Tommy Conley MD [place] - [facility] Office 03/18/2020 12:00:00 AM EST PATRICIA ([facility]) Tommy Conley MD: [id number], [place] [address], Ph. [phone] Attender: Tommy Conley MD [place] - [facility] 03/13/2020 12:00:00 AM EST PATRICIA ([facility]) Tommy Conley MD: [id number], [place] [address], Ph. [phone] Attender: Tommy Conley MD [place] - [facility] 03/13/2020 12:00:00 AM EST PATRICIA ([facility]) Tommy Conley MD: [id number], [place] [address], Ph. [phone] Attender: Tommy Conley MD [place] - [facility] 03/13/2020 12:00:00 AM EST PATRICIA ([facility]) Consuelo Haley, BEAM MACHINE OPERATOR: [id number], [facility] [place] [address], Ph. Attender: Consuelo Haley [facility] - [facility] 02/29/2020 12:00:00 AM EDT ATHNoah NA ([facility]) Consuelo Haley, BEAM MACHINE OPERATOR: [id number], [place] [address], Ph. Attender: Consuelo Haley [facility] - [facility] 02/29/2020 12:00:00 AM EDT ATHE NA ([facility]) Consuelo Haley, BEAM MACHINE OPERATOR: [address], [place] [address], Ph. Attender: Consuelo Haley [facility] - [facility] 02/29/2020 12:00:00 AM EDT ATHNoah NA ([facility]) Consuelo Haley, BEAM MACHINE OPERATOR: [id number], [place] [address], Ph. Attender: Consuelo Haley [facility] - [facility] 02/29/2020 12:00:00 AM EDT ATHNoah NA ([facility]) Tommy Conley MD: [address], [facility] [place] [address], Ph. Attender: Tommy Conley MD [place] - [facility] 02/14/2020 12:00:00 AM EDT PATRICIA ([facility]) Tommy Conley MD: [id number], [address] [place], [place] [phone], Ph. Attender: Tommy Conley MD [place] - [facility] 02/14/2020 12:00:00 AM EDT PATRICIA ([facility]) Tommy Conley MD: [address], [facility] [place], [place] [id number], Ph. Attender: Tommy Conley MD [place] - [facility] 02/14/2020 12:00:00 AM EDT PAT[facility]ICIA ([facility] [facility] Tommy Conley MD: [id number], [facility] [place] [address], Ph. Attender: Tommy Conley MD [facility] 02/14/2020 12:00:00 AM EDT [facility] ([facility]) Tommy Conley MD: [id number], [facility] [place], [place] [id number], Ph. Attender: Tommy Conley MD [facility] 02/14/2020 12:00:00 AM EDT [facility] ([facility]) Medications Medication Brand Name Start Date Product Form Dose Route Admi nistrative Instructions Pharmacy Instructions Status Indications Reaction Description Data Source(s) Acetaminophen 325 MG / Hydrocodone Eddie trate 10 MG Oral Tablet hydrocodone 10 mg-acetaminophen 325 mg tablet Take 1 tablet every 6-8 hours by oral route. hydrocodone 10 mg-acetaminophen 325 mg tablet Take 1 tablet every 6-8 hours by oral route. 1 completed ac etaminophen 325 MG / hydrocodone bitartrate 10 MG Oral Tablet [facility] ([facility]) Aspir-81 1 tab daily completed Aspir-81 [facility] ([facility]) Acetaminophen 300 MG / Codeine Phosphate 30 MG Oral Tablet acetaminophen 300 mg- codeine 30 mg tablet acetaminophen 300 mg-codeine 30 mg tablet completed acetaminophen 300 MG / codeine p hosphate 30 MG Oral Tablet [facility] ([facility]) Simvastatin 20 MG Oral Tablet simvastatin 20 mg tablet 1 tab daily simvastatin 20 mg tablet 1 tab daily completed simvastatin 20 MG Oral Tablet [facility] ([facility]) Insurance Providers Payer name Policy type / Coverage type Policy ID Covered democrat ID Covered democrat's relationship to dubose Policy Dubose Plan Information Ghi FHP-(DO Not Use) Medigap Part B [id number] Self [id number] Ghi FHP-(DO Not Use) Medigap Part B [id number] Self [id number] Ghi FHP-(DO Not Use) Medigap Part B [id number] Self [id number] Ghi FHP-(DO Not Use) Medigap Part B [id number] Self [id number] Ghi FHP-(DO Not Use) Medigap Part B [id number] Self [id number] Ghi FHP-(DO Not Use) Medigap Part B [id number] Self 0 [id number] NON VA CARE [id number] SP [id number] [facility] [id number] SP [id number] MEDICARE [id number] SP [id number] A [facility] Walk-in Appointment Scheduler Commercial [id number] Self [id number] [employer] Medicare Shonda Commercial [id number] Self [id number] [facility] Commercial [id number] Self [id number] UHC MEDICARE [id number] Elaina [id number] Unitedhcare Medicare Shonda Commercial [id number] Self Unitedhcare Medicare Sol Commercial [id number] Self [id number] [facility]) [facility] Part B [id number] Self [id number] [facility] Commercial [id number] Self [id number] [employer]etna ([facility]) Commercial [id number] Self [id number] [employer]et[employer] ([facility]) Commercial [id number] Self [id number] [employer] ([facility]) Commercial [id number] Self [id number] [employer] Medicare Commercial [id number] Self [id number] [employer]etna ([facility]) Commercial [id number] Self [id number] AETNA MEDICARE COMPLETE G [id number] Self [id number] AETNA MEDICARE [id number] Elaina 10 [id number] Aetna Ppo/Pos/Nap/MC Commercial [id number] Self [id number] Alex Davidson Self Insd Workers Compensation [id number] Self [id number] Alex Davidosn Self Insd Workers Compensation [id number] Self [id number] [facility] Medicare Commercial [id number] Self [id number] MEDICARE COMPLETE-[facility] O [id number] S [id number] MD [facility] P [id number] S [id number] ALEX DAVIDSON SELF INS S [id number] S [id number] MEDICARE P [id number] S [id number] A P UNAVAILABLE UNAVAILA BLE [id number] A MEDICARE COMPLETE [id number] SP [id number] AETNA MEDICARE [id number] SP 10 [id number] 'S ADMINISTRATION [id number] SP [id number] WELLCARE [id number] SP [id number] OPTUM VA CCN [id number] SP [id number] VA CCN OPTUM - FAC [id number] OPTUM VA O [id number] S [id number] AETNA MEDICARE [id number] SP [id number] AETNA MEDICARE [id number] SP [id number] 35T AETNA MEDICARE O [id number] S [id number] 35T AETNA MEDICARE [id number] SP [id number] 35T AETNA MEDICARE [id number] SP [id number] 'S ADMINISTRATION [id number] SP [id number] AETNA MEDICARE O [id number] S [id number] [place] Self Insd Workers Compensation [id number] Self [id number] [employer] Self Insd Workers Compensation [id number] Self [id number] [place] [employer] Self Insd Workers Compensation [id number] Self [id number] Alex [place] Self Insd Workers Compensation [id number] Self [id number] ALEX CO SELF INSURED SP UMR/POMCO RISK MANAGEMENT SP AETNA HEALTH SEIU MYLA O [id number] S [id number] AETNA MEDICARE [id number] SP [id number] Aetna Commercial [id number] Self [id number] AETNA MEDICARE [id number] SP [id number] Problems, Conditions, and Diagnoses Code Display Name Description Problem Type Effective Dates Data Source(s) R06.02 Shortness of breath Shortness of breath Diagnosis 0 11/29/2020 07:41:48 AM EDT [facility] M109 Gout, unspecified Gout, unspecified Diagnosis 08/28/2020 06:30:00 AM EDT [facility] K219 Gastro-esophageal reflux disease without esophagitis Gastro-esophageal reflux disease without esophagitis Diagnosis 08/28/2020 06:30:00 AM ED T [facility] E7800 Pure hypercholesterolemia, unspecified P ure hypercholesterolemia, unspecified Diagnosis 08/28/2020 06:30:00 AM EDT [facility] I10 Essential (primary) hypertension Essential (primary) h ypertension Diagnosis 08/28/2020 06:30:00 AM EDT [facility] H2513 Age-related nuclear cataract, bilateral Age-related nuclear cataract, bilateral Diagnosis 08/28/2020 06:30:00 AM EDT [facility] R7309 Other abnormal glucose Other abnormal glucose Diagnosi s 08/21/2020 07:00:00 AM T [facility] R7303 Prediabetes Prediabetes Diagnosis 08/21/2020 07:00:00 AM EDT [facility] [id number] Cortical age-related cataract, bilateral Cortical age-related cataract, bilateral Diagnosis 08/21/2020 07:00:00 AM T [facility] W60770 Encounter for other preprocedural examin ation Encounter for other preprocedural examination Diagnosis 08/16/2020 01:07:00 PM EDT [facility] Surgeries/Procedures Procedure Description Date Indications Data Source(s) ARTHROCENTESIS ASPIR&/INJECTION MAJOR JT/BURSA 021 12:00:00 AM EDT [facility] ([facility] ) ARTHROCENTESIS ASPIR&/INJECTION MAJOR JT/BURSA 021 12:00:00 AM EDT [facility] OFFICE OUTPATIENT VISIT 25 MINUTES 01/29/2021 12:00:00 AM EDT [facility] OFFICE OUTPATIENT VISIT 15 MINUTES 12/04/2020 12:00:00 AM EDT [facility] ([facility]) ECG ROUTINE ECG W/LEAST 12 LDS W/I&R 10/23/2020 12:00: 00 AM EDT [facility] ([facility]) OFFICE OUTPATIENT VISIT 25 MINUTES 10/23/2020 12:00:00 AM EDT [facility] ([facility]) DESTRUCTION PREMALIGNANT LESION 1ST 10/23/2020 12:00:0 0 AM EDT [facility] ([facility]) DESTRUCTION PREMALIGNANT LESION 2-14 EA 10/23/2020 12: 00:00 AM EDT [facility] ([facility]) ARTHROCENTESIS ASPIR&/INJECTION MAJOR JT/BURSA 021 12:00:00 AM EDT [facility] ([facility] ) ARTHROCENTESIS ASPIR&/INJECTION MAJOR JT/BURSA 021 12:00:00 AM EDT [facility] ([facility] ) RADEX SHOULDER COMPLETE MINIMUM 2 VIEWS 09/03/2020 12: 00:00 AM EDT [facility] ([facility]) OFFICE OUTPATIENT VISIT 25 MINUTES 09/03/2020 12:00:00 AM EDT [facility] ([facility] ) ARTHROCENTESIS ASPIR&/INJECTION MAJOR JT/BURSA 021 12:00:00 AM EDT [facility] ([facility]) ARTHROCENTESIS ASPIR&/INJECTION MAJOR JT/BURSA 021 12:00:00 AM EDT [facility] ([facility]) ARTHROCENTESIS ASPIR&/INJECTION MAJOR JT/BURSA 021 12:00:00 AM EDT [facility] ([facility]) OFFICE OUTPATIENT VISIT 25 MINUTES 09/02/2020 12:00:00 AM EDT [facility] ([facility]) Diabetic Retinal Eye Exam 08/29/2020 12:00:00 AM EDT [facility] ([facility]) Diabetic Retinal Eye Exam 08/22/2020 12:00:00 AM EDT [facility] ([facility]) OFFICE OUTPATIENT VISIT 25 MINUTES 08/13/2020 12:00:00 AM EDT [facility] ([facility]) Tangential Each Separate/Additional Lesion 06/26/2020 12:00:00 AM EST [facility] ([facility]) Punch Biopsy Of Skin (1 lesion) 06/26/2020 12:00:00 AM EST [facility] ([facility]) DESTRUCTION PREMALIGNANT LESION 1ST 06/26/2020 12:00:0 0 AM EST [facility] ([facility]) DESTRUCTION PREMALIGNANT LESION 2-14 EA 06/26/2020 12: 00:00 AM EST [facility] ([facility]) OFFICE OUTPATIENT VISIT 15 MINUTES 06/06/2020 12:00:00 AM EST [facility] ([facility]) ARTHROCENTESIS ASPIR&/INJECTION MAJOR JT/BURSA 021 12:00:00 AM EST [facility] ([facility] ) ARTHROCENTESIS ASPIR&/INJECTION MAJOR JT/BURSA 021 12:00:00 AM EST [facility] ([facility]) RADIOLOGIC EXAM KNEE COMPLETE 4/MORE VIEWS 05/06/2020 12:00:00 AM EST [facility] ([facility]) RADIOLOGIC EXAM KNEE COMPLETE 4/MORE VIEWS 05/06/2020 12:00:00 AM EST [facility] ([facility]) OFFICE OUTPATIENT VISIT 15 MINUTES 05/06/2020 12:00:00 AM EST [facility] ([facility]) RADIOLOGIC EXAM KNEE COMPLETE 4/MORE VIEWS 05/06/2020 12:00:00 AM EST [facility] ([facility]) Results ID Date Data Source [id number] 03/18/2021 12:00:00 AM EST [facility] Name Value Range Interpretation Code Description Data Christy rce(s) Supporting Document(s) SARS-COV-2 Negative [facility] This lab was ordered by Feder[facility] and re ported by Melarsalan. ID Date Data Source [id number] 10/23/2020 10:14:00 AM EDT [facility] ([facility]) Name Value Range Interpretation Code Description Data Christy rce(s) Supporting Document(s) Urea nitrogen [Mass/volume] in Serum or Plasma 14 mg/dL 7-18 [facility] ([facility]) Glucose [Mass/volume] in Serum or Plasma 98 mg/dL 74-99 [facility] ([facility]) 100-125 mg/dL PRE-DIABETES/FASTING >126 mg/dL DIABETES/FASTING Creatinine 1.1 mg/dL 0.6-1.3 [facility]) Sodium [Moles/volume] in Serum or Plasma 139 meq/L 136-145 [facility] ([facility]) Potassium [Moles/volume] in Serum or Plasma 4.2 meq/L 3.5-5.1 [facility] ([facility]) Carbon dioxide, total [Moles/volume] in Serum or Plasma 27 meq/L 21 -32 [facility] ([facility]) Chloride [Moles/volume] in Serum or Plasma 102 meq/L 98-107 [facility] Alkaline phosphatase isoenzyme [Units/volume] in Serum or Pl asma 77 mg/dL 46-116 [facility] ([facility]) Calcium [Mass/volume] in Serum or Plasma 9.0 mg/dL 8.5-10.1 [facility] ([facility]) Aspartate aminotransferase [Enzymatic activity/volume] in Serum or Plasma 35 U/L 15-37 [facility] ([facility] ) Total Bilirubin 0.5 mg/dL 0.2-1.0 [facility] ([facility]) Proteinase 3 Ab [Units/volume] in Serum 6.5 g/dL 6.4-8.2 [facility] ([facility]) Albumin [Mass/volume] in Serum or Plasma 4.0 g/dL 3.4-5.0 [facility] ([facility]) Alanine aminotransferase [Enzymatic activity/volume] in Seru m or Plasma 58 U/L 12-78 [facility] ([facility]) A/G Ratio 1.60 CALC 1.00-1.90 [facility]) Glomerular filtration rate/1.73 sq M pre dicted among non-blacks [Volume Rate/Area] in Serum or Plasma by Creatinine-based formula (MDRD) Laboratory test result [facility] Glomerular filtration rate/1.73 sq M pre dicted among blacks [Volume Rate/Area] in Serum or Plasma by Creatinine-based formula (MDRD) Laboratory test result [facility]) <content>CHRONIC KIDNEY DISEASE STAGING PER NKF</content>
<content></content>
<content>STAGE I & II GFR >= 60 NORMAL TO MILDLY DECREASED</content>
<content>STAGE III GFR 30-59 MODERATELY DECREASED</content>
<content>STAGE IV GFR 15-29 SEVERELY DECREASED</content>
<content>STAGE V GFR <15 VERY LITTLE GFR LEFT</content>
<content>ESRD GFR <15 ON VASCULAR MANAGER</content>
<content></content> ID Date Data Source [id number] 10/23/2020 10:14:00 AM EDT [facility] ([facility]) Name Value Range Interpretation Code Description Data Christy rce(s) Supporting Document(s) Erythrocytes [#/volume] in Blood by Automated count 4.60 x10*6/UL 4.2 0-6.30 [facility] ([facility]) Leukocytes [#/volume] in Blood by Automated count 5.9 x10*3/UL 4.1-10 .9 [facility] Hemoglobin [Mass/volume] in Blood 14.1 g/dL 12.0-18.0 [facility]) Hematocrit [Volume Fraction] of Blood by Automated count 42.4 % 3 7.0-51.0 [facility] ([facility]) MCH 30.8 pg 26.0-32.0 [facility]) MCV 92.3 fL 80.0-97.0 [facility] ([facility]) MCHC 33.3 g/dL 31.0-38.0 [facility] ([facility]) MPV 7.8 FL 7.8-11.0 [facility] ([facility]) Platelets [#/volume] in Blood by Automated count 173 x10*3/UL 140-440 [facility] Erythrocyte distribution width [Ratio] by Automated count 13.5 % 11.6-13.7 [facility] ([facility]) Neut % 58.0 % 37.0-92.0 [facility] Lymph % 33.7 % 10.0-58.5 [facility]) Mid % 8.3 % 1.7-9.3 [facility] Lymph # 2.0 x10*3/UL 0.6-4.1 [facility] ([facility]) Mid # 0.5 x10*3/UL 0.1-0.6 [facility] ([facility]) Neut # 3.4 x10*3/UL 2.0-7.8 [facility] ([facility]) ID Date Data Source [id number] 08/28/2020 08:47:00 [place] [address] OPERATIVE SUMMARYNAME: CHARAN FRENCH DATE OF : 3ATTENDING PHYS: Praveena Reddy MD DATE: 08/28/20 MR#: [id number] OF PROCEDURE: 08/28/2020REOPERATIVE DIAGNOSIS: Age-related nuclear cataract, left eye.POSTOPERATIVE DIAGNOSIS: Age-related nuclear cataract, left eye.PROCEDURE PERFORMED: Phacoemulsification of posterior chamber with intraocular lensimplantation left eye.ANESTHESIA: Topical sedation.LENS USED: AUOOTO 21.5 diopters.DETAILS OF PROCEDURE: The eye was prepped and draped in the usual fashion. Lidspeculum was placed in the lid. A stab incision was made to the anterior chamber with asuperblade. 1% non-preserved lidocaine was instilled and viscoelastic instilled. The eye wasrefixated, and a 2.4 mm Keratome made a clear corneal and temporal limbal incision. The lens wasthen hydrodissected, and then it was grooved in two meridians at the phacoemulsification. The lenswas scrapped into four quadrants. Each quadrant was in good phacoemulsification. The remainingcortex was removed with I&A unit. The capsular bag was refilled with viscoelastic and theposterior chamber and intraocular lens were inserted into the capsular bag with no difficulty. Anyremaining viscoelastic was removed with the I&A, and the wound was hydrated and balanced saltand ceftriaxone were instilled. The patient tolerated the procedure well, and went to the recoveryroom in stable condition.DD: Praveena Reddy MD 08/28/20 08:33DT: SEEMA 08/28/20 08:45DS: Praveena Reddy MD 09/18/20 16:35 1 Name Value Range Interpretation Code Description Data Christy rce(s) Supporting Document(s) ID Date Data Source [id number] 09/02/2020 08:55:00 AM EDT [facility] ([facility]) Name Value Range Interpretation Code Description Data Christy rce(s) Supporting Document(s) Urea nitrogen [Mass/volume] in Serum or Plasma 21 mg/dL 7-18 [facility] ([facility]) Glucose [Mass/volume] in Serum or Plasma 112 mg/dL 74-99 [facility] ([facility]) 100-125 mg/dL PRE-DIABETES/FASTING >126 mg/dL DIABETES/FASTING Sodium [Moles/volume] in Serum or Plasma 142 meq/L 136-145 [facility] ([facility]) Creatinine 1.2 mg/dL 0.6-1.3 [facility] ([facility]) Chloride [Moles/volume] in Serum or Plasma 103 meq/L 98-107 [facility] ([facility]) Potassium [Moles/volume] in Serum or Plasma 3.8 meq/L 3.5-5.1 [facility] ([facility]) Calcium [Mass/volume] in Serum or Plasma 8.7 mg/dL 8.5-10.1 [facility] ([facility]) Carbon dioxide, total [Moles/volume] in Serum or Plasma 27 meq/L 21 -32 [facility] ([facility]) Glomerular filtration rate/1.73 sq M pre dicted among blacks [Volume Rate/Area] in Serum or Plasma by Creatinine-based formula (MDRD) Laboratory test result [facility]) <content>CHRONIC KIDNEY DISEASE STAGING PER NKF</content>
<content></content>
<content>STAGE I & II GFR >= 60 NORMAL TO MILDLY DECREASED</content>
<content>STAGE III GFR 30-59 MODERATELY DECREASED</content>
<content>STAGE IV GFR 15-29 SEVERELY DECREASED</content>
<content>STAGE V GFR <15 VERY LITTLE GFR LEFT</content>
<content>ESRD GFR <15 ON VASCULAR MANAGER</content>
<content></content> Glomerular filtration rate/1.73 sq M pre dicted among non-blacks [Volume Rate/Area] in Serum or Plasma by Creatinine-based formula (MDRD) 59 mL/min [facility] ([facility]) ID Date Data Source [id number] 08/21/2020 09:01:00 [place] [address] OPERATIVE SUMMARYNAME: CHARAN FRENCH DATE OF : 1945TTENDING PHYS: Praveena Reddy MD DATE: 08/21/20 MR#: [id number] OF PROCEDURE: 08/21/2020REOPERATIVE DIAGNOSIS: Age-related nuclear cataract, right eye.POSTOPERATIVE DIAGNOSIS: Age-related nuclear cataract, right eye.PROCEDURE PERFORMED: Phacoemulsification of posterior chamber with intraocular lensimplantation right eye.ANESTHESIA: Topical sedation.LENS USED: AUOOTO 21.5 diopters.DETAILS OF PROCEDURE: The eye was prepped and draped in the usual fashion. Lidspeculum was placed in the lid. A stab incision was made to the anterior chamber with asuperblade. 1% non-preserved lidocaine was instilled and viscoelastic instilled. The eye wasrefixated, and a 2.4 mm Keratome made a clear corneal and temporal limbal incision. The lens wasthen hydrodissected, and then it was grooved in two meridians at the phacoemulsification. The lenswas scrapped into four quadrants. Each quadrant was in good phacoemulsification. The remainingcortex was removed with I&A unit. The capsular bag was refilled with viscoelastic and theposterior chamber and intraocular lens were inserted into the capsular bag with no difficulty. Anyremaining viscoelastic was removed with the I&A, and the wound was hydrated and balanced saltand ceftriaxone were instilled. The patient tolerated the procedure well, and went to the recoveryroom in stable condition.DD: Praveena Reddy MD 08/21/20 08:58DT: SEEMA 08/21/20 09:01DS: Praveena Reddy MD 08/23/20 13:05 1 Name Value Range Interpretation Code Description Data Christy rce(s) Supporting Document(s) ID Date Data Source [id number] 08/23/2020 09:58:00 AM EDT [facility] Name Value Range Interpretation Code Description Data Christy rce(s) Supporting Document(s) SARS-CoV-2 (COVID-19) Negative [facility] This lab was ordered by [facility] and reported by [facility]. ID Date Data Source [id number] 08/16/2020 11:05:00 AM EDT [facility] Name Value Range Interpretation Code Description Data Christy rce(s) Supporting Document(s) SARS-CoV-2 (COVID-19) Negative [facility] This lab was ordered by [facility] and reported by [facility]. ID Date Data Source [id number] 06/26/2020 03:03:00 PM EST [facility] ([facility]) Name Value Range Interpretation Code Description Data Christy rce(s) Supporting Document(s) [facility] Laboratory test result Abnormal (applies to non -numeric results) [facility] ([facility]) RESULTS DIAGNOSIS DIAGNOSIS: A. ANTERIOR CHEST- BASAL CELL CARCINOMA, INFILTRATING TYPE B. #2 LOWER ABDOMEN - SEBORRHEIC KERATOSIS, INFLAMED RESULTS SIGNATURE Shashank Dickinson MD, PhD Electronic Signature: 01 JUL 2020 03:46 PM CLINICAL INFORMATION CLINICAL INFORMATION A. BCC; B. INFLAMED FARNAZ KER SPECIMEN DATA GROSS DESCRIPTION A. Received in 10% buffered formalin is a punch biopsy of skin measuring [id number]. The specimen is bisected and entirely submitted in one cassette. B. Received in 10% buffered formalin is a shave biopsy of skin plus fragments measuring [id number]. The specimen is trisected and entirely submitted in one cassette. MICROSCOPIC DESCRIPTION A. There is a neoplasm within the dermis composed of basaloid cells with relatively uniform hyperchromatic nuclei and scanty cytoplasm. The basaloid cells are arranged in lobules, branching irregular aggregates, and cords. B. There is basket-weave and laminated orthokeratosis, and parakeratosis, overlying an epidermis characterized by papillomatosis, acanthosis, basaloid cells and horn pseudocysts. There is a mononuclear cell infiltrate in the papillary dermis. CPT Codes 02780e3 The CPT codes provided are for information purposes only, and are based on AMA guidelines without regard to specific payor requirements. END OF REPORT FINAL REPORT-ACC FINAL [facility],[address] [place] [address],[address],[place] [address]. [phone]. [phone]. Hydrologic Modeler: MD FRANKO Alvarado [id number], [place] [id number], [place] [address]28 Laboratory test finding (navigational concept) Laboratory test result [facility] ID Date Data Source [id number] 06/06/2020 09:23:00 AM EST [facility]) Name Value Range Interpretation Code Description Data Christy rce(s) Supporting Document(s) Cholesterol [Mass/volume] in Serum or Plasma 138 mg/dL 131-200 [facility] ([facility]) Cholesterol in HDL [Mass/volume] in Serum or Plasma 91 mg/dL 35-60 [facility] ([facility]) Triglyceride [Mass/volume] in Serum or Plasma 45 mg/dL 30-150 [facility] ([facility]) Cholesterol in LDL [Mass/volume] in Serum or Plasma by calcu lation 38 CALC 50-159 [facility] ID Date Data Source [id number] 06/06/2020 09:23:00 AM EST [facility] ([facility]) Name Value Range Interpretation Code Description Data Christy rce(s) Supporting Document(s) Glucose [Mass/volume] in Serum or Plasma 101 mg/dL 74-99 [facility] ([facility]) 100-125 mg/dL PRE-DIABETES/FASTING >126 mg/dL DIABETES/FASTING Urea nitrogen [Mass/volume] in Serum or Plasma 27 mg/dL 7-18 [facility] ([facility]) Creatinine 1.2 mg/dL 0.6-1.3 [facility] Sodium [Moles/volume] in Serum or Plasma 143 meq/L 136-145 [facility] ([facility]) Potassium [Moles/volume] in Serum or Plasma 4.4 meq/L 3.5-5.1 [facility] ([facility]) Chloride [Moles/volume] in Serum or Plasma 104 meq/L 98-107 [facility] ([facility]) Calcium [Mass/volume] in Serum or Plasma 8.7 mg/dL 8.5-10.1 [facility] ([facility]) Carbon dioxide, total [Moles/volume] in Serum or Plasma 27 meq/L 21 -32 [facility] ([facility]) Alkaline phosphatase isoenzyme [Units/volume] in Serum or Pl asma 78 mg/dL 46-116 [facility] ([facility]) Aspartate aminotransferase [Enzymatic activity/volume] in Serum or Plasma 25 U/L 15-37 [facility] ([facility] ) Total Bilirubin 0.6 mg/dL 0.2-1.0 [facility] ([facility]) Alanine aminotransferase [Enzymatic activity/volume] in Seru m or Plasma 52 U/L 12-78 [facility] ([facility]) Albumin [Mass/volume] in Serum or Plasma 4.2 g/dL 3.4-5.0 [facility] ([facility]) A/G Ratio 1.56 CALC 1.00-1.90 [facility]) Proteinase 3 Ab [Units/volume] in Serum 6.9 g/dL 6.4-8.2 [facility] ([facility]) Glomerular filtration rate/1.73 sq M pre dicted among non-blacks [Volume Rate/Area] in Serum or Plasma by Creatinine-based formula (MDRD) 59 mL/min [facility] Glomerular filtration rate/1.73 sq M pre dicted among blacks [Volume Rate/Area] in Serum or Plasma by Creatinine-based formula (MDRD) Laboratory test result [facility]) <content>CHRONIC KIDNEY DISEASE STAGING PER NKF</content>
<content></content>
<content>STAGE I & II GFR >= 60 NORMAL TO MILDLY DECREASED</content>
<content>STAGE III GFR 30-59 MODERATELY DECREASED</content>
<content>STAGE IV GFR 15-29 SEVERELY DECREASED</content>
<content>STAGE V GFR <15 VERY LITTLE GFR LEFT</content>
<content>ESRD GFR <15 ON VASCULAR MANAGER</content>
<content></content> ID Date Data Source [id number] 06/06/2020 09:23:00 AM EST [facility] ([facility]) Name Value Range Interpretation Code Description Data Christy rce(s) Supporting Document(s) Leukocytes [#/volume] in Blood by Automated count 5.9 x10*3/UL 4.1-10 .9 [facility] ([facility]) Erythrocytes [#/volume] in Blood by Automated count 4.41 x10*6/UL 4.2 0-6.30 [facility] ([facility]) Hematocrit [Volume Fraction] of Blood by Automated count 40.7 % 3 7.0-51.0 [facility] ([facility]) Hemoglobin [Mass/volume] in Blood 14.0 g/dL 12.0-18.0 [facility] ([facility]) MCV 92.3 fL 80.0-97.0 [facility]) MCHC 34.3 g/dL 31.0-38.0 [facility] MCH 31.7 pg 26.0-32.0 [facility] Platelets [#/volume] in Blood by Automated count 178 x10*3/UL 140-440 [facility] ([facility]) Erythrocyte distribution width [Ratio] by Automated count 13.7 % 11.6-13.7 [facility] ([facility]) MPV 7.5 FL 7.8-11.0 [facility] Mid % 7.6 % 1.7-9.3 [facility] Lymph % 36.5 % 10.0-58.5 [facility] Neut % 55.9 % 37.0-92.0 [facility] Lymph # 2.1 x10*3/UL 0.6-4.1 [facility] ([facility]) Neut # 3.3 x10*3/UL 2.0-7.8 [facility] ([facility]) Mid # 0.5 x10*3/UL 0.1-0.6 [facility] ([facility]) ID Date Data Source [id number] 04/24/2020 12:00:00 AM EST [facility] Miki Sharpe MD Patient Name: MANOLO FARRAR [id number] [facility] [place] [id number] Date of Exam: 04/24/2020#: Fax: [phone] EXAM: MRI LUMBAR SPINE WITHOUT CONTRASTPROCEDURE INFORMATION:Exam: MR Lumbar Spine Without Contrast.Exam date and time: 04/24/2020 11:01 AM Age: 75 years oldClinical indication: Low back pain; Prior surgery; Surgery date: 6+ monthsTECHNIQUE: Imaging protocol: Multiplanar magnetic resonance images of thelumbar spine without intravenous contrast.COMPARISON: MRI LUMBAR SPINE WITHOUT CONTRAST 09/21/2019 4:25 PMFINDINGS: Vertebrae: There is intervertebral spacer at L4/5 and L5/S1.There is no fracture. There is severe intervertebral disc space loss atL2/3 and L3/4. There are multilevel endplate changes. 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 There is prominence of the dorsalepidural fat. There is moderate facet hypertrophy. There is moderate canalstenosis, with central clumping of nerve roots. There is xspq-uf-xdmexzdpgqpvjyxvj neural foraminal narrowing.L2-L3: There is diffuse disc bulging. There is moderate facet hypertrophy.There is severe canal stenosis. There is moderate right and mild leftneural foraminal narrowing.L3-L4: There is diffuse disc bulging. There is moderate facet andligamentous hypertrophy. There is mild right and severe left neuralforaminal narrowing.L4- L5: There are laminectomy changes. There is dorsal spondylitic ridging.There is facet hypertrophy. There is fpby-ks-wecmpann bilateral neuralforaminal narrowi ng.L5-S1: There are laminectomy changes. 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 Changes contribute to multilevel acquired canalstenosis, most pronounced at L2/3, where it is severe. There is nbeieqipxfkehp-iz-eiqiuufl neural foraminal narrowing.Thank you for allowing us to participate in the care of your patient.Dictated and Authenticated by: Jaymie Nguyen MD 04/24/2020 2:37 PMEastern Time ([place] & [place])VradV/jmcTmadyk you for referring MANOLO FARRAR to our office. Electronically Signed - VRBLAS 04/24/20 15:00 Name Value Range Interpretation Code Description Data Christy rce(s) Supporting Document(s) ID Date Data Source [id number] 03/13/2020 12:00:00 AM EST [facility] ([facility]) Name Value Range Interpretation Code Description Data Christy rce(s) Supporting Document(s) SARS-CoV-2 (COVID-19) RNA [Presence] in Respiratory specimen by ADALID with probe detection negative negative Sars-cov-2 [facility] ([facility]) ID Date Data Source [id number] 03/13/2020 12:00:00 AM EST [facility] ([facility]) Name Value Range Interpretation Code Description Data Christy rce(s) Supporting Document(s) ID Date Data Source [id number] 03/13/2020 12:00:00 AM EST [facility] ([facility]) Name Value Range Interpretation Code Description Data Christy rce(s) Supporting Document(s) SARS coronavirus 2 RNA [Presence] in Res piratory specimen by ADALID with probe detection negative negative Sars-cov-2 [facility] ([facility]) ID Date Data Source [id number] 03/13/2020 12:00:00 AM EST [facility] ([facility]) Name Value Range Interpretation Code Description Data Christy rce(s) Supporting Document(s) ID Date Data Source [id number] 03/13/2020 12:00:00 AM EST [facility] Name Value Range Interpretation Code Description Data Christy rce(s) Supporting Document(s) SARS-CoV-2 [facility] This lab was ordered by [facility] and reported by [employer]. Procedure Social History No Information Vital Signs ID Date Data Source UNK Name Value Range Interpretation Code Description Data Source(s) Systolic blood pressure 110 mm[Hg] 110 [facility]Hg[facility] Body mass index (BMI) [Ratio] 30.1 kg/m2 30.1 k g/m2 [facility] Diastolic blood pressure 68 mm[Hg] 68 mm[Hg] [facility] Heart rate 84 /min 84 /min [facility] Body height 67.5 [in_i] 67.5 [in_i] [facility] ([facility]) 5'7.50" Body weight 195.00 [lb_av] 195.00 [lb_av] [facility] ([facility]) Oxygen saturation in Arterial blood by Pulse oximetry 95 % 95 % [facility] ([facility]) Systolic blood pressure 120 mm[Hg] 120 mm[Hg] [facility] ([facility]) Diastolic blood pressure 70 mm[Hg] 70 mm[Hg] [facility] Heart rate 71 /min 71 /min [facility] Body height 67.5 [in_i] 67.5 [in_i] [facility] ([facility]) 5'7.50" Body weight 195.00 [lb_av] 195.00 [lb_av] [facility] ([facility]) Oxygen saturation in Arterial blood by Pulse oximetry 96 % 96 % [facility] ([facility]) Air Body mass index (BMI) [Ratio] 30.1 kg/m2 30.1 k g/m2 [facility] ([facility]) Body temperature 96.5 [degF] 96.5 [degF] [facility] ([facility]) Body weight 193.00 [lb_av] 193.00 [lb_av] [facility] ([facility]) Body height 67 [in_i] 67 [in_i] [facility] ([facility] 5'7" Body mass index (BMI) [Ratio] 30.2 kg/m2 30.2 k g/m2 [facility] ([facility] Systolic blood pressure 118 mm[Hg] 118 mm[Hg] [facility] ([facility]) Diastolic blood pressure 76 mm[Hg] 76 mm[Hg] [facility] ([facility]) Heart rate 70 /min 70 /min [facility] ([facility] Body height 67.5 [in_i] 67.5 [in_i] [facility] ([facility]) 5'7.50" Body weight 203.00 [lb_av] 203.00 [lb_av] [facility] ([facility]) Body mass index (BMI) [Ratio] 31.3 kg/m2 31.3 k g/m2 [facility] ([facility]) Body height 67.5 [in_i] 67.5 [in_i] [facility] ([facility]) 5'7.50" Heart rate 74 /min 74 /min [facility] ([facility]) Body weight 200.00 [lb_av] 200.00 [lb_av] [facility] ([facility]) Oxygen saturation in Arterial blood by Pulse oximetry 96 % 96 % [facility] ([facility]) Body mass index (BMI) [Ratio] 30.9 kg/m2 30.9 k g/m2 [facility] ([facility]) Diastolic blood pressure 68 mm[Hg] 68 mm[Hg] [facility] ([facility]) Systolic blood pressure 122 mm[Hg] 122 mm[Hg] M [facility] ([facility]) Body height 67.5 [in_i] 67.5 [in_i] [facility] ([facility]) 5'7.50" Body weight 200.12 [lb_av] 200.12 [lb_av] [facility] ([facility]) Body mass index (BMI) [Ratio] 30.9 kg/m2 30.9 k g/m2 [facility] ([facility]) Body temperature 97.3 [degF] 97.3 [degF] [facility] ([facility]) ID Date Data Source [id number] 09/18/2020 04:35:41 PM EDT [facility] Name Value Range Interpretation Code Description Data Source(s) WEIGHT RECORDED 198.[address] [facility] Height 67 Inches 067 Inches [facility] ID Date Data Source [id number] 08/26/2020 10:39:39 AM EDT [facility] Name Value Range Interpretation Code Description Data Source(s) WEIGHT RECORDED 198.[address] [facility] Height 67 Inches 067 Inches [facility] Patient Treatment Plan of Care Planned Activity Planned Date Details Description Data Source (s) Simvastatin 20 MG Oral Tablet [facility] ([facility]) Acetaminophen 325 MG / Hydrocodone Bitartrate 10 MG Oral Tablet [facility] ([facility]) Aspir-81 1 tab daily [facility] ([facility]) Acetaminophen 300 MG / Codeine Phosphate 30 MG Oral Tablet [facility] ([facility])
--- OUTSIDE RECORDS SUMMARY | 2021-04-14 09:52 | CCD | Continuity of Care Document ---
Author Author Jt ROSENTHAL Organization Unknown Address [address] [place] [address], [facility] [address] [place] [address] Phone [phone] Care Team Providers Care Utility Specialist Name Role Phone Dennis Hardwick MD AUTM [phone] Problems Active Problems Provider Date Essential hypertension GLORIA Ramos Onset: 11/30/2016 Pure hypercholesterolemia GLORIA Ramos Onset: 017 Type 2 diabetes mellitus Mary Correia MD Onset: Social History Type Date Description Comments Sex Unknown ETOH Use Rarely consumes alcohol Tobacco Use Start: Unknown Denies Smoking Allergies, Adverse Reactions, Alerts Active Allergies Criticality Reaction | Severity Comments Date Jacek Unable to assess criticality 11/30/2016 Medications Active [...] Available Procedures Date Code Description Status 01/29/2021 00028 Office/Outpatient Established Mo d MDM 30-39 Min Completed 01/29/2021 60493 Inject/Drain Joint/Bursa Major C ompleted 10/02/2020 99634 Inject/Drain Joint/Bursa Major C ompleted 09/03/2020 10372 Office/Outpatient Established Mo d MDM 30-39 Min Completed 09/03/2020 77338 X-Ray Shoulder Complete Complete d 09/03/2020 14117 Inject/Drain Joint/Bursa Major C ompleted 09/02/2020 91840 Office/Outpatient Established Mo d MDM 30-39 Min Completed 09/02/2020 26272 Inject/Drain Joint/Bursa Major C ompleted 09/02/2020 67258 Inject/Drain Joint/Bursa Major C ompleted Medical Devices Description No Information Available Encounters Type Date Location Provider Dx Diagnosis Office Visit 01/29/2021 10:30a GLORIA Jin M19.011 Primary osteoarthritis, right shoulder M17.0 Bilateral primary osteoarthr itis of knee Office Visit 10/02/2020 11:00a GLORIA Jin M17.0 Bilateral primary osteoarthritis of knee Office Visit 09/03/2020 8:30a GLORIA Jin M19.011 Primary osteoarthritis, right shoulder Office Visit 09/02/2020 4:30p GLORIA Jin M17.0 Bilateral primary osteoarthritis of knee Assessments Date Code Description Provider 01/29/2021 M19.011 Primary osteoarthritis, right sh oulder GLORIA Ramos 01/29/2021 M17.0 Bilateral primary osteoarthritis of knee GLORIA Ramos 10/02/2020 M17.0 Bilateral primary osteoarthritis of knee GLORIA Ramos 09/03/2020 M19.011 Primary osteoarthritis, right sh oulder GLORIA Ramos 09/02/2020 M17.0 Bilateral primary osteoarthritis [...] Umm Cortez for order and appt. Created [facility] [facility] [address] [place] [address] [phone]
--- OUTSIDE RECORDS SUMMARY | 2021-04-14 11:54 | CCD ---
Author Author [facility] Organization [facility] Address Unknown Phone Unavailable Care Team Providers Care Lock Assembler Name Role Phone NO, PCP Unavailable Unavailable Diego Conley MD Unavailable Unavailable Diego Conley MD Unavailable Unavailable Diego Conley MD Unavailable Unavailable Diego Conley MD Unavailable Unavailable Diego Conley MD Unavailable Unavailable Digeo Conley MD Unavailable Unavailable Diego Conley MD [...] Unavailable LAURITA, J Tammie ANP Unavailable Unavailable LARUITA, J Tammie ANP Unavailable Unavailable LAURITA, J [...] MD Unavailable Unavailable KolomsPraveena MD Unavailable Unavailable CibolaIván MD Unavailable Unavailable CibolaIván MD Unavailable Unavailable CibolaIván MD Unavailable Unavailable RonenIván MD Unavailable Unavailable RonenIván MD Unavailable Unavailable CibolaIván MD Unavailable Unavailable CibolaIván MD Unavailable Unavailable RonenIván MD Unavailable Unavailable RonenIván MD Unavailable Unavailable RonenIván MD Unavailable Unavailable CibolaIván MD Unavailable Unavailable RonenIván MD Unavailable Unavailable CibolaIván MD Unavailable Unavailable RonenIván MD Unavailable Unavailable CibolaIván MD Unavailable Unavailable CibolaIván MD Unavailable Unavailable RonenIávn MD Unavailable Unavailable RonenIván MD Unavailable Unavailable RonenIván MD Unavailable Unavailable RonenIván MD Unavailable Unavailable CibolaIván MD Unavailable Unavailable CibolaIván MD Unavailable Unavailable RonenIván MD Unavailable Unavailable CibolaIván MD Unavailable Unavailable CibolaIván MD Unavailable Unavailable CibolaIván MD Unavailable Unavailable CibolaIván MD Unavailable Unavailable CibolaIván MD Unavailable Unavailable CibolaIván MD Unavailable Unavailable RonenIván MD Unavailable Unavailable RonenIván MD Unavailable Unavailable CibolaIván MD Unavailable Unavailable CibolaIván MD Unavailable Unavailable RonenIván ramirez MD Unavailable Unavailable CibolaIván ramirez MD Unavailable Unavailable RonenIván MD Unavailable Unavailable CibolaIván MD Unavailable Unavailable CibolaIván MD Unavailable Unavailable CibolaIván MD Unavailable Unavailable RonenIván ramirez MD Unavailable Unavailable RonenIván MD Unavailable Unavailable CibolaIván MD Unavailable Unavailable RonenIván MD Unavailable Unavailable CibolaIván MD Unavailable Unavailable RonenIván MD Unavailable Unavailable RonenIván MD Unavailable Unavailable RonenIván MD Unavailable Unavailable RonenIván MD Unavailable Unavailable CibolaIván MD Unavailable Unavailable CibolaIván MD Unavailable Unavailable RonenIván MD Unavailable Unavailable RonenIván MD Unavailable Unavailable RonenIván MD Unavailable Unavailable CibolaIván MD Unavailable Unavailable RonenIván MD Unavailable Unavailable RonenIván MD Unavailable Unavailable RonenIván MD Unavailable Unavailable RonenIván MD Unavailable Unavailable CibolaIván MD Unavailable Unavailable RonenIván MD Unavailable Unavailable CibolaIván MD Unavailable Unavailable CibolaIván MD Unavailable Unavailable CibolaIván MD Unavailable Unavailable CibolaIván MD Unavailable Unavailable CibolaIván MD Unavailable Unavailable RonenIván MD Unavailable Unavailable CibolaIván MD Unavailable Unavailable RonenIván MD Unavailable Unavailable RonenIván MD Unavailable Unavailable CibolaIván MD Unavailable Unavailable CibolaIván MD Unavailable Unavailable CibolaIván MD Unavailable Unavailable RonenIván MD Unavailable Unavailable RonenIván MD Unavailable Unavailable RonenIván MD Unavailable Unavailable CibolaIván MD Unavailable Unavailable RonenIván MD Unavailable Unavailable RonenIván MD Unavailable Unavailable CibolaIván MD Unavailable Unavailable RonenIván MD Unavailable Unavailable CibolaIván MD Unavailable Unavailable RonenIván MD Unavailable Unavailable CibolaIván ramirez MD Unavailable Unavailable RonenIván MD Unavailable Unavailable RonenIván MD Unavailable Unavailable CibolaIván MD Unavailable Unavailable CibolaIván MD Unavailable Unavailable Jumalon, M Consuelo JUVENILE COURT JUDGE Unavailable Unavailable Jumalon, M Consuelo JUVENILE COURT JUDGE Unavailable Unavailable Jumalon, M Consuelo JUVENILE COURT JUDGE Unavailable Unavailable Jumalon, M Consuelo JUVENILE COURT JUDGE Unavailable Unavailable Jumalon, M Consuelo JUVENILE COURT JUDGE Unavailable Unavailable Jumalon, M Consuelo JUVENILE COURT JUDGE Unavailable Unavailable Jumalon, M Consuelo JUVENILE COURT JUDGE Unavailable Unavailable Jumalon, M Consuelo JUVENILE COURT JUDGE Unavailable Unavailable Jumalon, M Consuelo JUVENILE COURT JUDGE Unavailable Unavailable Jumalon, M Consuelo JUVENILE COURT JUDGE Unavailable Unavailable Jumalon, M Consuelo JUVENILE COURT JUDGE Unavailable Unavailable Jumalon, M Consuelo JUVENILE COURT JUDGE Unavailable Unavailable Jumalon, M Consuelo JUVENILE COURT JUDGE Unavailable Unavailable Jumalon, M Consuelo JUVENILE COURT JUDGE Unavailable Unavailable Jumalon, M Consuelo JUVENILE COURT JUDGE Unavailable Unavailable Jumalon, M Consuelo JUVENILE COURT JUDGE Unavailable Unavailable Jumalon, M Consuelo JUVENILE COURT JUDGE Unavailable Unavailable Jumalon, M Consuelo JUVENILE COURT JUDGE Unavailable Unavailable Jumalon, M Consuelo JUVENILE COURT JUDGE Unavailable Unavailable Jumalon, M Consuelo JUVENILE COURT JUDGE Unavailable Unavailable Jumalon, M Consuelo JUVENILE COURT JUDGE Unavailable Unavailable Jumalon, M Consuelo JUVENILE COURT JUDGE Unavailable Unavailable Jumalon, M Consuelo JUVENILE COURT JUDGE Unavailable Unavailable Jumalon, M Consuelo JUVENILE COURT JUDGE Unavailable Unavailable Jumalon, M Consuelo JUVENILE COURT JUDGE Unavailable Unavailable Jumalon, M Consuelo JUVENILE COURT JUDGE Unavailable Unavailable Jumalon, M Consuelo JUVENILE COURT JUDGE Unavailable Unavailable Jumalon, M Consuelo JUVENILE COURT JUDGE Unavailable Unavailable Jumalon, M Consuelo JUVENILE COURT JUDGE Unavailable Unavailable Jumalon, M Consuelo JUVENILE COURT JUDGE Unavailable Unavailable DRAZEK, I ADDY PA Unavailable [...] J Tammie ANP Unavailable Unavailable LAURITA, J Tamime ANP Unavailable Unavailable LAURITA, J Tammie ANP [...] Unavailable LAURITA, J Tammie ANP Unavailable Unavailable LAURIAT, J Tammie ANP Unavailable Unavailable LAURITA, J [...] is protected by Article 27-F of the [facility] Public Health law. If you continue you may have access to information: Regarding HIV / AIDS; Provided by facilities licensed or operated by the [facility] Office of Mental Health; or Provided by the [facility] Office for People With Developmental Disabilities. If such information is present, then the following [facility] mandated warning applies: This information has been [...] law may result in a fine or snf sentence or both. A general authorization for [...] [facility] Unknown Male Problem [facility] ([facility] ) Unknown Unknown Problem [facility] ([facility] ) Encounters Encounter Providers Location Date Indications Data Source(s ) Outpatient Attender: ADDY CASTRO Physical Therapy 01/29/2021 1 0:30:00 AM EDT [facility] ([facility]) Outpatient Attender: Tammie Moffett 08/2020 09:00:00 AM EDT [facility] ([facility] ) Outpatient Referrer: Tammie ROSS SJLupe.NATHALIE-SJPRobbieNATHALIE 11/29 12:00:00 AM EDT - 11/29/2020 11:52:48 AM EDT [facility] Outpatient Attender: Tammie Moffett 09:20:00 AM EDT [facility] ([facility] ) Office Visit Attender: ADDY CASTRO Physical Therapy 2020 11:00:00 AM EDT [facility] ([facility] ) Outpatient Attender: ADDY CASTRO Physical Therapy 09/03/2020 0 8:30:00 AM EDT [facility] ([facility]) Outpatient Attender: ADDY CASTRO Physical Therapy 09/02/2020 0 4:30:00 PM EDT [facility] ([facility]) Outpatient Attender: Praveena Reddy MDConsultant: PCP NO 08/28/2020 06:30:00 AM EDT - 08/28/2020 09:09:00 AM EDT [facility] Patient discharged. Outpatient Attender: Praveena Reddy MDConsultant: PCP NO 08/21/2020 07:00:00 AM EDT - 08/21/2020 09:28:00 AM EDT [facility] Patient discharged. Outpatient Attender: Praveena Reddy MDConsultant: PCP NO 08/15/2020 12:24:14 PM EDT - 08/16/2020 01:28:00 PM EDT [facility] Patient discharged. Outpatient Attender: Dennis Moffett 0 08/13/2020 01:30:00 PM EDT [facility] ([facility] ) Outpatient Attender: Tammie Moffett 08/2020 08:00:00 AM EST [facility] ([facility] ) OFFICE OUTPATIENT VISIT 15 MINUTES Attender: ADDY CASTRO Phys ical Therapy 05/06/2020 01:15:00 PM EST [facility] ([facility]) Consuelo Santiago Tera, TECHNICIAN TRAINEE: [address], [place] [address], Ph. Attender: Consuelo Haley JUVENILE COURT JUDGE [place] - [facility] Office 04/03/2020 12:00:00 AM EST ATHE NA ([facility]) Tommy Conley MD: [address], [facility] [place] [address], Ph. Attender: Tommy Conley MD [place] - [facility] 03/18/2020 12:00:00 AM EST PATRICIA ([facility]) Tommy Conley MD: [address], [place] [address], Ph. Attender: Tommy Conley MD [place] - [facility] 03/18/2020 12:00:00 AM EST PATRICIA ([facility]) Tommy Conley MD: [address], [place] [address], Ph. [phone] Attender: Tommy Conley MD [place] - [facility] 03/13/2020 12:00:00 AM EST PATRICIA ([facility]) Tommy Conley MD: [address], [place] [address], Ph. [phone] Attender: Tommy Conley MD [place] - [facility] 03/13/2020 12:00:00 AM EST PATRICIA ([facility]) Tommy Conley MD: [address], [place] [address], Ph. [phone] Attender: Tommy Conley MD [place] - [facility] 03/13/2020 12:00:00 AM EST PATRICIA ([facility]) Consuelo Haley, TECHNICIAN TRAINEE: [address], [facility] [place] [address], Ph. Attender: Consuelo Haley [facility] - [facility] 02/29/2020 12:00:00 AM EDT ATHNoah NA ([facility]) Consuelo Haley, TECHNICIAN TRAINEE: [address], [place] [address], Ph. Attender: Consuelo Haley [facility] - [facility] 02/29/2020 12:00:00 AM EDT ATHE NA ([facility]) Consuelo Haley, TECHNICIAN TRAINEE: [address], [place] [address], Ph. Attender: Consuelo Haley [facility] - [facility] 02/29/2020 12:00:00 AM EDT ATHNoah NA ([facility]) Consuelo Haley, TECHNICIAN TRAINEE: [address], [place] [address], Ph. Attender: Consuelo Haley [facility] - [facility] 02/29/2020 12:00:00 AM EDT ATHNoah NA ([facility]) Tommy Conley MD: [address], [facility] [place] [address], Ph. Attender: Tommy Conley MD [place] - [facility] 02/14/2020 12:00:00 AM EDT PATRICIA ([facility]) Tommy Conley MD: [address], [address] [place], [place] [address], Ph. Attender: Tommy Conley MD [place] - [facility] 02/14/2020 12:00:00 AM EDT PATRICIA ([facility]) Tommy Conley MD: [address], [facility] [place], [place] [address], Ph. Attender: Tommy Conley MD [place] - [facility] 02/14/2020 12:00:00 AM EDT PATRICIA ([facility]) Tommy Conley MD: [address], [facility] [place] [address], Ph. Attender: Tommy Conley MD [facility] 02/14/2020 12:00:00 AM EDT PATRICIA ([facility]) Tommy Conley MD: [address], [facility] [place], [place] [address], Ph. Attender: Tommy Conley MD [facility] 02/14/2020 12:00:00 AM EDT PATRICIA ([facility]) Medications Medication Brand Name Start Date Product [...] 10 MG Oral Tablet PATRICIA ([facility]) Aspir-81 1 tab daily completed Aspir-81 PATRICIA ([facility]) Acetaminophen 300 MG / Codeine Phosphate 30 MG Oral Tablet acetaminophen 300 mg- codeine 30 mg tablet acetaminophen 300 mg-codeine 30 mg tablet completed acetaminophen 300 MG / codeine p hosphate 30 MG Oral Tablet PATRICIA ([facility]) Simvastatin 20 MG Oral Tablet simvastatin 20 mg tablet 1 tab daily simvastatin 20 mg tablet 1 tab daily completed simvastatin 20 MG Oral Tablet PATRICIA ([facility]) Insurance Providers Payer name Policy type / Coverage type Policy ID Covered republican ID Covered republican's relationship to dubose Policy Dubose Plan Information Ghi FHP-(DO Not Use) Medigap Part B [id number] Self [id number] Ghi FHP-(DO Not Use) Medigap Part B [id number] Self [id number] Ghi FHP-(DO Not Use) Medigap Part B [id number] Self [id number] Ghi FHP-(DO Not Use) Medigap Part B [id number] Self [id number] Ghi FHP-(DO Not Use) Medigap Part B [id number] Self [id number] Ghi FHP-(DO Not Use) Medigap Part B [id number] Self 0 [id number] NON VA CARE [id number] SP [id number] [facility] [id number] SP [id number] MEDICARE [id number] SP [id number] A [facility] [employer] Commercial [id number] Self [id number] United[employer] Medicare Shonda Commercial [id number] Self [id number] [facility] Commercial [id number] Self [id number] UHC MEDICARE [id number] Elaina [id number] Unitedhcare Medicare Shonda Commercial [id number] Self Unitedhcare Medicare Sol Commercial [id number] Self [id number] [facility]) [facility] Part B [id number] Self [id number] [facility] Commercial [id number] Self [id number] [employer] ([facility]) Commercial [id number] Self [id number] [employer] ([facility]) Commercial [id number] Self [id number] [employer] ([facility]) Commercial [id number] Self [id number] [employer]etna Medicare Commercial [id number] Self [id number] [employer] ([facility]) Commercial [id number] Self [id number] AETNA MEDICARE COMPLETE G [id number] Self [id number] AETNA MEDICARE [id number] Elaina 10 [id number] Aetna Ppo/Pos/Nap/MC Commercial [id number] Self [id number] [place] [employer] Self Insd Workers Compensation [id number] Self [id number] Alex [place] Self Insd Workers Compensation [id number] Self [id number] [facility] Medicare Commercial [id number] Self [id number] MEDICARE COMPLETE-[facility] O [id number] S [id number] [place] [facility] [id number] S [id number] ALEX DAVIDSON SELF INS S [id number] S [id number] MEDICARE P [id number] S [id number] A P UNAVAILABLE UNAVAILA BLE [id number] A MEDICARE COMPLETE [id number] SP [id number] AETNA MEDICARE [id number] SP [id number] 'S ADMINISTRATION [id number] SP [id number] WELLCARE [id number] SP [id number] OPTUM VA CCN [id number] SP [id number] VA CCN OPTUM - FAC [id number] OPTUM VA O [id number] S [id number] AETNA MEDICARE [id number] SP [id number] AETNA MEDICARE [id number] SP [id number] AETNA MEDICARE O [id number] S [id number] 35T AETNA MEDICARE [id number] SP [id number] 35T AETNA MEDICARE [id number] SP [id number] 'S ADMINISTRATION [id number] SP [id number] AETNA MEDICARE O [id number] S [id number] [place] Self Insd Workers Compensation [id number] Self [id number] [employer] Self Insd Workers Compensation [id number] Self [id number] [employer] Self Insd Workers Compensation [id number] Self [id number] Alex Ri Self Insd Workers Compensation [id number] Self [id number] [place] SELF INSURED SP UMR/POMCO RISK MANAGEMENT SP AETNA HEALTH SEIU MYLA O [id number] S [id number] AETNA MEDICARE [id number] SP [id number] Aetna Commercial [id number] Self [id number] AETNA MEDICARE [id number] SP [id number] Problems, Conditions, and Diagnoses Code Display Name Description Problem Type Effective Dates Data Source(s) R06.02 Shortness of breath Shortness of breath Diagnosis 0 11/29/2020 07:41:48 AM EDT [facility] M109 Gout, unspecified Gout, unspecified Diagnosis 08/28/2020 06:30:00 AM EDT [facility] K219 Gastro-esophageal reflux disease without esophagitis Gastro-esophageal reflux disease without esophagitis Diagnosis 08/28/2020 06:30:00 AM ED T [facility] E7800 Pure hypercholesterolemia, unspecified P ure hypercholesterolemia, unspecified Diagnosis 08/28/2020 06:30:00 AM EDT [facility] I10 Essential (primary) hypertension Essential (primary) h ypertension Diagnosis 08/28/2020 06:30:00 AM EDT [facility] H2513 Age-related nuclear cataract, bilateral Age-related nuclear cataract, bilateral Diagnosis 08/28/2020 06:30:00 AM EDT [facility] R7309 Other abnormal glucose Other abnormal glucose Diagnosi s 08/21/2020 07:00:00 AM T [facility] R7303 Prediabetes Prediabetes Diagnosis 08/21/2020 07:00:00 AM EDT [facility] D04617 Cortical age-related cataract, bilateral Cortical age-related cataract, bilateral Diagnosis 08/21/2020 07:00:00 AM T [facility] B25970 Encounter for other preprocedural examin ation Encounter for other preprocedural examination Diagnosis 08/16/2020 01:07:00 PM EDT [facility] Surgeries/Procedures Procedure Description Date Indications Data Source(s) ARTHROCENTESIS ASPIR&/INJECTION MAJOR JT/BURSA 021 12:00:00 AM EDT [facility] ([facility] ) ARTHROCENTESIS ASPIR&/INJECTION MAJOR JT/BURSA 021 12:00:00 [facility] OFFICE OUTPATIENT VISIT 25 MINUTES 01/29/2021 12:00:00 AM [facility] OFFICE OUTPATIENT VISIT 15 MINUTES 12/04/2020 12:00:00 AM EDT [facility] ([facility]) ECG ROUTINE ECG W/LEAST 12 LDS W/I&R 10/23/2020 12:00: 00 AM EDT [facility] ([facility]) OFFICE OUTPATIENT VISIT 25 MINUTES 10/23/2020 12:00:00 AM EDT [facility] ([facility]) DESTRUCTION PREMALIGNANT LESION 1ST 10/23/2020 12:00:0 0 AM EDT [facility] ([facility]) DESTRUCTION PREMALIGNANT LESION 2-14 EA 10/23/2020 12: 00:00 AM EDT [facility] ([facility]) ARTHROCENTESIS ASPIR&/INJECTION MAJOR JT/BURSA 021 12:00:00 AM EDT [facility] ([facility] ) ARTHROCENTESIS ASPIR&/INJECTION MAJOR JT/BURSA 021 12:00:00 AM EDT [facility] ([facility] ) RADEX SHOULDER COMPLETE MINIMUM 2 VIEWS 09/03/2020 12: 00:00 AM EDT [facility] ([facility]) OFFICE OUTPATIENT VISIT 25 MINUTES 09/03/2020 12:00:00 AM EDT [facility] ([facility] ) ARTHROCENTESIS ASPIR&/INJECTION MAJOR JT/BURSA 021 12:00:00 AM EDT [facility] ([facility]) ARTHROCENTESIS ASPIR&/INJECTION MAJOR JT/BURSA 021 12:00:00 AM EDT [facility] ([facility]) ARTHROCENTESIS ASPIR&/INJECTION MAJOR JT/BURSA 021 12:00:00 AM EDT [facility] ([facility]) OFFICE OUTPATIENT VISIT 25 MINUTES 09/02/2020 12:00:00 AM EDT [facility] ([facility]) Diabetic Retinal Eye Exam 08/29/2020 12:00:00 AM EDT [facility] ([facility]) Diabetic Retinal Eye Exam 08/22/2020 12:00:00 AM EDT [facility] ([facility]) OFFICE OUTPATIENT VISIT 25 MINUTES 08/13/2020 12:00:00 AM EDT [facility] ([facility]) Tangential Each Separate/Additional Lesion 06/26/2020 12:00:00 AM EST [facility] ([facility]) Punch Biopsy Of Skin (1 lesion) 06/26/2020 12:00:00 AM EST [facility] ([facility]) DESTRUCTION PREMALIGNANT LESION 1ST 06/26/2020 12:00:0 0 AM EST [facility] ([facility]) DESTRUCTION PREMALIGNANT LESION 2-14 EA 06/26/2020 12: 00:00 AM EST [facility] ([facility]) OFFICE OUTPATIENT VISIT 15 MINUTES 06/06/2020 12:00:00 AM EST [facility] ([facility]) ARTHROCENTESIS ASPIR&/INJECTION MAJOR JT/BURSA 021 12:00:00 AM EST [facility] ([facility] ) ARTHROCENTESIS ASPIR&/INJECTION MAJOR JT/BURSA 021 12:00:00 AM EST [facility] ([facility]) RADIOLOGIC EXAM KNEE COMPLETE 4/MORE VIEWS 05/06/2020 12:00:00 AM EST [facility] ([facility]) RADIOLOGIC EXAM KNEE COMPLETE 4/MORE VIEWS 05/06/2020 12:00:00 AM EST [facility] ([facility]) OFFICE OUTPATIENT VISIT 15 MINUTES 05/06/2020 12:00:00 AM EST [facility] ([facility]) RADIOLOGIC EXAM KNEE COMPLETE 4/MORE VIEWS 05/06/2020 12:00:00 AM EST [facility] ([facility]) Results ID Date Data Source [id number] 03/18/2021 12:00:00 AM EST [facility] Name Value Range Interpretation Code Description Data Christy rce(s) Supporting Document(s) SARS-COV-2 Negative [facility] This lab was ordered by Federico and re ported by Melarsalan. ID Date Data Source [id number] 10/23/2020 10:14:00 AM EDT [facility] ([facility]) Name Value Range Interpretation Code Description Data Christy rce(s) Supporting Document(s) Urea nitrogen [Mass/volume] in Serum or Plasma 14 mg/dL 7-18 [facility] ([facility]) Glucose [Mass/volume] in Serum or Plasma 98 mg/dL 74-99 [facility] ([facility]) 100-125 mg/dL PRE-DIABETES/FASTING >126 mg/dL DIABETES/FASTING Creatinine 1.1 mg/dL 0.6-1.3 [facility] Sodium [Moles/volume] in Serum or Plasma 139 meq/L 136-145 [facility] ([facility]) Potassium [Moles/volume] in Serum or Plasma 4.2 meq/L 3.5-5.1 [facility] ([facility]) Carbon dioxide, total [Moles/volume] in Serum or Plasma 27 meq/L 21 -32 [facility] ([facility]) Chloride [Moles/volume] in Serum or Plasma 102 meq/L 98-107 [facility] Alkaline phosphatase isoenzyme [Units/volume] in Serum or Pl asma 77 mg/dL 46-116 [facility] ([facility]) Calcium [Mass/volume] in Serum or Plasma 9.0 mg/dL 8.5-10.1 [facility] ([facility]) Aspartate aminotransferase [Enzymatic activity/volume] in Serum or Plasma 35 U/L 15-37 [facility] ([facility] ) Total Bilirubin 0.5 mg/dL 0.2-1.0 [facility] ([facility]) Proteinase 3 Ab [Units/volume] in Serum 6.5 g/dL 6.4-8.2 [facility] ([facility]) Albumin [Mass/volume] in Serum or Plasma 4.0 g/dL 3.4-5.0 [facility] ([facility]) Alanine aminotransferase [Enzymatic activity/volume] in Seru m or Plasma 58 U/L 12-78 [facility] ([facility]) A/G Ratio 1.60 CALC 1.00-1.90 [facility]) Glomerular filtration rate/1.73 sq M pre dicted among non-blacks [Volume Rate/Area] in Serum or Plasma by Creatinine-based formula (MDRD) Laboratory test result [facility] Glomerular filtration rate/1.73 sq M pre dicted among blacks [Volume Rate/Area] in Serum or Plasma by Creatinine-based formula (MDRD) Laboratory test result [facility] <content>CHRONIC KIDNEY DISEASE STAGING PER NKF</content>
<content></content>
<content>STAGE I & II GFR >= 60 NORMAL TO MILDLY DECREASED</content>
<content>STAGE III GFR 30-59 MODERATELY DECREASED</content>
<content>STAGE IV GFR 15-29 SEVERELY DECREASED</content>
<content>STAGE V GFR <15 VERY LITTLE GFR LEFT</content>
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
<content></content> ID Date Data Source [id number] 10/23/2020 10:14:00 AM EDT [facility] ([facility]) Name Value Range Interpretation Code Description Data Christy rce(s) Supporting Document(s) Erythrocytes [#/volume] in Blood by Automated count 4.60 x10*6/UL 4.2 0-6.30 [facility] ([facility]) Leukocytes [#/volume] in Blood by Automated count 5.9 x10*3/UL 4.1-10 .9 [facility] Hemoglobin [Mass/volume] in Blood 14.1 g/dL 12.0-18.0 [facility] Hematocrit [Volume Fraction] of Blood by Automated count 42.4 % 3 7.0-51.0 [facility] ([facility]) MCH 30.8 pg 26.0-32.0 [facility]) MCV 92.3 fL 80.0-97.0 [facility] ([facility]) MCHC 33.3 g/dL 31.0-38.0 [facility] ([facility]) MPV 7.8 FL 7.8-11.0 [facility] ([facility]) Platelets [#/volume] in Blood by Automated count 173 x10*3/UL 140-440 [facility] Erythrocyte distribution width [Ratio] by Automated count 13.5 % 11.6-13.7 [facility] ([facility]) Neut % 58.0 % 37.0-92.0 [facility]) Lymph % 33.7 % 10.0-58.5 [facility]) Mid % 8.3 % 1.7-9.3 [facility] Lymph # 2.0 x10*3/UL 0.6-4.1 [facility] ([facility]) Mid # 0.5 x10*3/UL 0.1-0.6 [facility] ([facility]) Neut # 3.4 x10*3/UL 2.0-7.8 [facility] ([facility]) ID Date Data Source [id number] 08/28/2020 08:47:00 [place] [address] OPERATIVE SUMMARYNAME: CHARAN FRENCH DATE OF : 3ATTENDING PHYS: Praveena Reddy MD DATE: 08/28/20 MR#: [id number] OF PROCEDURE: 08/28/2020REOPERATIVE DIAGNOSIS: Age-related nuclear cataract, [...] rce(s) Supporting Document(s) ID Date Data Source [id number] 09/02/2020 08:55:00 AM EDT [facility] ([facility]) Name Value Range Interpretation Code Description Data Christy rce(s) Supporting Document(s) Urea nitrogen [Mass/volume] in Serum or Plasma 21 mg/dL 7-18 [facility] ([facility]) Glucose [Mass/volume] in Serum or Plasma 112 mg/dL 74-99 [facility] ([facility]) 100-125 mg/dL PRE-DIABETES/FASTING >126 mg/dL DIABETES/FASTING Sodium [Moles/volume] in Serum or Plasma 142 meq/L 136-145 [facility] ([facility]) Creatinine 1.2 mg/dL 0.6-1.3 [facility] Chloride [Moles/volume] in Serum or Plasma 103 meq/L 98-107 [facility] ([facility]) Potassium [Moles/volume] in Serum or Plasma 3.8 meq/L 3.5-5.1 [facility] ([facility]) Calcium [Mass/volume] in Serum or Plasma 8.7 mg/dL 8.5-10.1 [facility] ([facility]) Carbon dioxide, total [Moles/volume] in Serum or Plasma 27 meq/L 21 -32 [facility] ([facility]) Glomerular filtration rate/1.73 sq M pre dicted among blacks [Volume Rate/Area] in Serum or Plasma by Creatinine-based formula (MDRD) Laboratory test result [facility] <content>CHRONIC KIDNEY DISEASE STAGING PER NK[facility]</content>
<content></content>
<content>STAGE I & II GFR >= 60 NORMAL TO MILDLY DECREASED</content>
<content>STAGE III GFR 30-59 MODERATELY DECREASED</content>
<content>STAGE IV GFR 15-29 SEVERELY DECREASED</content>
<content>STAGE V GFR <15 VERY LITTLE GFR LEFT</content>
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
<content></content> Glomerular filtration rate/1.73 sq M pre dicted among non-blacks [Volume Rate/Area] in Serum or Plasma by Creatinine-based formula (MDRD) 59 mL/min [facility] ([facility]) ID Date Data Source [id number] 08/21/2020 09:01:00 [place] [address] OPERATIVE SUMMARYNAME: CHARAN FRENCH DATE OF : 1945TTENDING PHYS: Praveena Reddy MD DATE: 08/21/20 MR#: [id number] OF PROCEDURE: 08/21/2020REOPERATIVE DIAGNOSIS: Age-related nuclear cataract, [...] rce(s) Supporting Document(s) ID Date Data Source [id number] 08/23/2020 09:58:00 AM EDT [facility] Name Value Range Interpretation Code Description Data Christy rce(s) Supporting Document(s) SARS-CoV-2 (COVID-19) Negative [facility] This lab was ordered by [facility] and reported by [facility]. ID Date Data Source [id number] 08/16/2020 11:05:00 AM EDT [facility] Name Value Range Interpretation Code Description Data Christy rce(s) Supporting Document(s) SARS-CoV-2 (COVID-19) Negative [facility] This lab was ordered by [facility] and reported by [facility]. ID Date Data Source [id number] 06/26/2020 03:03:00 PM EST [facility] ([facility]) Name Value Range Interpretation Code Description Data Christy rce(s) Supporting Document(s) [facility] Laboratory test result Abnormal (applies to non -numeric results) [facility] ([facility]) RESULTS DIAGNOSIS DIAGNOSIS: A. ANTERIOR CHEST- BASAL CELL CARCINOMA, INFILTRATING TYPE B. #2 LOWER ABDOMEN - SEBORRHEIC KERATOSIS, INFLAMED RESULTS SIGNATURE Shashank Dickinson MD, PhD Electronic Signature: 01 JUL 2020 03:46 PM CLINICAL INFORMATION CLINICAL INFORMATION A. BCC; B. INFLAMED FARNAZ KER SPECIMEN DATA GROSS DESCRIPTION A. Received in 10% buffered formalin is a punch biopsy of skin measuring [id number]. The specimen is bisected and entirely submitted in one cassette. B. Received in 10% buffered formalin is a shave biopsy of skin plus fragments measuring [id number]. The specimen is trisected and entirely submitted [...] infiltrate in the papillary dermis. CPT Codes 01635s7 The CPT codes provided are for information purposes only, and are based on AMA guidelines without regard to specific payor requirements. END OF REPORT FINAL REPORT-ACC FINAL [facility],[address] [place] [address],[address],[place] [address]. [phone]. [phone]. Contract Accountant: MD FRANKO Alvarado [id number], [place] [id number], [place] [id number] Laboratory test finding (navigational concept) [facility] ID Date Data Source [id number] 06/06/2020 09:23:00 AM EST [facility] Name Value Range Interpretation Code Description Data Christy rce(s) Supporting Document(s) Cholesterol [Mass/volume] in Serum or Plasma 138 mg/dL 131-200 [facility] ([facility]) Cholesterol in HDL [Mass/volume] in Serum or Plasma 91 mg/dL 35-60 [facility] ([facility]) Triglyceride [Mass/volume] in Serum or Plasma 45 mg/dL 30-150 [facility] ([facility]) Cholesterol in LDL [Mass/volume] in Serum or Plasma by calcu lation 38 CALC 50-159 [facility] ID Date Data Source [id number] 06/06/2020 09:23:00 AM EST [facility] ([facility]) Name Value Range Interpretation Code Description Data Christy rce(s) Supporting Document(s) Glucose [Mass/volume] in Serum or Plasma 101 mg/dL 74-99 [facility] ([facility]) 100-125 mg/dL PRE-DIABETES/FASTING >126 mg/dL DIABETES/FASTING Urea nitrogen [Mass/volume] in Serum or Plasma 27 mg/dL 7-18 [facility] ([facility]) Creatinine 1.2 mg/dL 0.6-1.3 [facility] Sodium [Moles/volume] in Serum or Plasma 143 meq/L 136-145 [facility] ([facility]) Potassium [Moles/volume] in Serum or Plasma 4.4 meq/L 3.5-5.1 [facility] ([facility]) Chloride [Moles/volume] in Serum or Plasma 104 meq/L 98-107 [facility] ([facility]) Calcium [Mass/volume] in Serum or Plasma 8.7 mg/dL 8.5-10.1 [facility] ([facility]) Carbon dioxide, total [Moles/volume] in Serum or Plasma 27 meq/L 21 -32 [facility] ([facility]) Alkaline phosphatase isoenzyme [Units/volume] in Serum or Pl asma 78 mg/dL 46-116 [facility] ([facility]) Aspartate aminotransferase [Enzymatic activity/volume] in Serum or Plasma 25 U/L 15-37 [facility] ([facility] ) Total Bilirubin 0.6 mg/dL 0.2-1.0 [facility] ([facility]) Alanine aminotransferase [Enzymatic activity/volume] in Seru m or Plasma 52 U/L 12-78 [facility] ([facility]) Albumin [Mass/volume] in Serum or Plasma 4.2 g/dL 3.4-5.0 [facility] ([facility]) A/G Ratio 1.56 CALC 1.00-1.90 [facility]) Proteinase 3 Ab [Units/volume] in Serum 6.9 g/dL 6.4-8.2 [facility] ([facility]) Glomerular filtration rate/1.73 sq M pre dicted among non-blacks [Volume Rate/Area] in Serum or Plasma by Creatinine-based formula (MDRD) 59 mL/min [facility] Glomerular filtration rate/1.73 sq M pre dicted among blacks [Volume Rate/Area] in Serum or Plasma by Creatinine-based formula (MDRD) Laboratory test result [facility] <content>CHRONIC KIDNEY DISEASE STAGING PER NKF</content>
<content></content>
<content>STAGE I & II GFR >= 60 NORMAL TO MILDLY DECREASED</content>
<content>STAGE III GFR 30-59 MODERATELY DECREASED</content>
<content>STAGE IV GFR 15-29 SEVERELY DECREASED</content>
<content>STAGE V GFR <15 VERY LITTLE GFR LEFT</content>
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
<content></content> ID Date Data Source [id number] 06/06/2020 09:23:00 AM EST [facility] ([facility]) Name Value Range Interpretation Code Description Data Christy rce(s) Supporting Document(s) Leukocytes [#/volume] in Blood by Automated count 5.9 x10*3/UL 4.1-10 .9 [facility] ([facility]) Erythrocytes [#/volume] in Blood by Automated count 4.41 x10*6/UL 4.2 0-6.30 [facility] ([facility]) Hematocrit [Volume Fraction] of Blood by Automated count 40.7 % 3 7.0-51.0 [facility] ([facility]) Hemoglobin [Mass/volume] in Blood 14.0 g/dL 12.0-18.0 [facility] ([facility]) MCV 92.3 fL 80.0-97.0 [facility]) MCHC 34.3 g/dL 31.0-38.0 [facility] MCH 31.7 pg 26.0-32.0 [facility] Platelets [#/volume] in Blood by Automated count 178 x10*3/UL 140-440 [facility] ([facility]) Erythrocyte distribution width [Ratio] by Automated count 13.7 % 11.6-13.7 [facility] ([facility]) MPV 7.5 FL 7.8-11.0 [facility]) Mid % 7.6 % 1.7-9.3 [facility] Lymph % 36.5 % 10.0-58.5 [facility]) Neut % 55.9 % 37.0-92.0 [facility]) Lymph # 2.1 x10*3/UL 0.6-4.1 [facility] ([facility]) Neut # 3.3 x10*3/UL 2.0-7.8 [facility] ([facility]) Mid # 0.5 x10*3/UL 0.1-0.6 [facility] ([facility]) ID Date Data Source [id number] 04/24/2020 12:00:00 AM EST [facility] Miki Sharpe MD Patient Name: MANOLO FARRAR [address] [facility] 1945[facility] [place] [id number] Date of Exam: 04/24/2020#: Fax: [phone] EXAM: [...] central clumping of nerve roots. There is zarr-dv-htrwavgjhihtpkool neural foraminal narrowing.L2-L3: There is diffuse disc bulging. There is moderate facet hypertrophy.There is severe canal stenosis. There is moderate right and mild leftneural foraminal narrowing.L3-L4: There is diffuse disc bulging. There is moderate facet andligamentous hypertrophy. There is mild right and severe left neuralforaminal narrowing.L4- L5: There are laminectomy changes. There is dorsal spondylitic ridging.There is facet hypertrophy. There is kexu-sw-pkdtouwr bilateral neuralforaminal narrowi ng.L5-S1: There are laminectomy changes. 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 Changes contribute to multilevel acquired canalstenosis, most pronounced at L2/3, where it is severe. There is rfkogwlbialpgk-la-nvanfjee neural foraminal narrowing.Thank you for allowing us to participate in the care of your patient.Dictated and Authenticated by: Jaymie Nguyen MD 04/24/2020 2:37 PMEastern Time ([place] & [place])VradV/jmcTmadyk you for referring MANOLO FARRAR to our office. Electronically Signed - VRBLAS 04/24/20 15:00 Name Value Range Interpretation Code Description Data Christy rce(s) Supporting Document(s) ID Date Data Source [id number] 03/13/2020 12:00:00 AM EST [facility] ([facility]) Name Value Range Interpretation Code Description Data Christy rce(s) Supporting Document(s) SARS-CoV-2 (COVID-19) RNA [Presence] in Respiratory specimen by ADALID with probe detection negative negative Sars-cov-2 [facility] ([facility]) ID Date Data Source [id number] 03/13/2020 12:00:00 AM EST [facility] ([facility]) Name Value Range Interpretation Code Description Data Christy rce(s) Supporting Document(s) ID Date Data Source [id number] 03/13/2020 12:00:00 AM EST [facility] ([facility]) Name Value Range Interpretation Code Description Data Christy rce(s) Supporting Document(s) SARS coronavirus 2 RNA [Presence] in Res piratory specimen by ADALID with probe detection negative negative Sars-cov-2 [facility] ([facility]) ID Date Data Source [id number] 03/13/2020 12:00:00 AM EST [facility] ([facility]) Name Value Range Interpretation Code Description Data Christy rce(s) Supporting Document(s) ID Date Data Source [id number] 03/13/2020 12:00:00 AM EST [facility] Name Value Range Interpretation Code Description Data Christy rce(s) Supporting Document(s) SARS-CoV-2 [facility] This lab was ordered by [facility]-C[facility] and reported by [employer] [facility]. Procedure Social History No Information Vital Signs ID Date Data Source UNK Name Value Range Interpretation Code Description Data Source(s) Systolic blood pressure 110 mm[Hg] 110 mm[Hg] M [facility]ENT ([facility]) Diastolic blood pressure 68 mm[Hg] 68 mm[Hg] [facility] ([facility]) Heart rate 84 /min 84 /min [facility] ([facility]) Body height 67.5 [in_i] 67.5 [in_i] [facility] ([facility]) 5'7.50" Body weight 195.00 [lb_av] 195.00 [lb_av] MEDEN T ([facility]) Oxygen saturation in Arterial blood by Pulse oximetry 95 % 95 % [facility] ([facility]) Body mass index (BMI) [Ratio] 30.1 kg/m2 30.1 k g/m2 [facility] ([facility]) Body height 67.5 [in_i] 67.5 [in_i] [facility] ([facility]) 5'7.50" Body weight 195.00 [lb_av] 195.00 [lb_av] MEDEN T ([facility]) Oxygen saturation in Arterial blood by Pulse oximetry 96 % 96 % [facility] RM Air Body mass index (BMI) [Ratio] 30.1 kg/m2 30.1 k g/m2 [facility] ([facility]) Systolic blood pressure 120 mm[Hg] 120 mm[Hg] M [facility] ([facility]) Diastolic blood pressure 70 mm[Hg] 70 mm[Hg] [facility] ([facility]) Heart rate 71 /min 71 /min [facility] ([facility]) Body temperature 96.5 [degF] 96.5 [degF] [facility] ([facility] ) Body weight 193.00 [lb_av] 193.00 [lb_av] [facility] T ([facility]) Body height 67 [in_i] 67 [in_i] [facility] ([facility] ) 5'7" Body mass index (BMI) [Ratio] 30.2 kg/m2 30.2 k g/m2 [facility] ([facility] ) Systolic blood pressure 118 mm[Hg] 118 mm[Hg] M ED[facility] ([facility]) Diastolic blood pressure 76 mm[Hg] 76 mm[Hg] [facility] ([facility]) Heart rate 70 /min 70 /min [facility] Body height 67.5 [in_i] 67.5 [in_i] [facility] ([facility]) 5'7.50" Body weight 203.00 [lb_av] 203.00 [lb_av] MEDEN T ([facility]) Body mass index (BMI) [Ratio] 31.3 kg/m2 31.3 k g/m2 [facility] ([facility]) Body height 67.5 [in_i] 67.5 [in_i] [facility] ([facility]) 5'7.50" Heart rate 74 /min 74 /min [facility] Body weight 200.00 [lb_av] 200.00 [lb_av] MEDEN T ([facility]) Oxygen saturation in Arterial blood by Pulse oximetry 96 % 96 % [facility] ([facility]) Body mass index (BMI) [Ratio] 30.9 kg/m2 30.9 k g/m2 [facility] ([facility]) Diastolic blood pressure 68 mm[Hg] 68 mm[Hg] [facility] ([facility]) Systolic blood pressure 122 mm[Hg] 122 mm[Hg] M EDENT ([facility]) Body height 67.5 [in_i] 67.5 [in_i] [facility] ([facility]) 5'7.50" Body weight 200.12 [lb_av] 200.12 [lb_av] MEDEN T ([facility]) Body mass index (BMI) [Ratio] 30.9 kg/m2 30.9 k g/m2 [facility] ([facility]) Body temperature 97.3 [degF] 97.3 [degF] [facility] ([facility]) ID Date Data Source [id number] 09/18/2020 04:35:41 PM EDT [facility] Name Value Range Interpretation Code Description Data Source(s) WEIGHT RECORDED 198.00 pounds 198.00 pounds [facility] Height 67 Inches 067 Inches [facility] ID Date Data Source [id number] 08/26/2020 10:39:39 AM EDT [facility] Name Value Range Interpretation Code Description Data Source(s) WEIGHT RECORDED 198.00 pounds 198.00 pounds [facility] Height 67 Inches 067 Inches [facility] Patient Treatment Plan of Care Planned Activity Planned Date Details Description Data Source (s) Simvastatin 20 MG Oral Tablet [facility] ([facility]) Acetaminophen 325 MG / Hydrocodone Bitartrate 10 MG Oral Tablet [facility] ([facility]) Aspir-81 1 tab daily [facility] ([facility]) Acetaminophen 300 MG / Codeine Phosphate 30 MG Oral Tablet [facility] ([facility])
[2021-04-14 11:56] LABS: BASO % 0.3 % (0.0-1.0); EOS # 0.2 10^3/uL (0.0-0.5); HEMATOCRIT 43.2 % (42.0-52.0); HEMOGLOBIN 14.4 g/dl (13.5-17.5); LYMPH # 1.8 10^3/uL (1.5-5.0); LYMPH % 30.7 % (24.0-44.0); MEAN CORPUSCULAR HEMOGLOBIN 30.8 pg (27.0-33.0); MEAN CORPUSCULAR HGB CONC 33.3 g/dl (32.0-36.5); MEAN CORPUSCULAR VOLUME 92.5 fl (80.0-96.0); MONO # 0.4 10^3/uL (0.0-0.8); MONO % 7.7 % (2.0-8.0); NEUTROPHILS # 3.3 10^3/uL (1.5-8.5); NEUTROPHILS % 58.1 % (36.0-66.0); PLATELET COUNT, AUTOMATED 164 10^3/uL (150-450); RED BLOOD COUNT 4.67 10^6/uL (4.30-6.10); WHITE BLOOD COUNT 5.7 10^3/uL (4.0-10.0)
[2021-04-14 12:19] LABS: CK-MB VALUE MASS 1.3 NG/ML (<3.6); MB/CK RELATIVE INDEX 0.85 (< OR =4)
[2021-04-14] MEDS ORDERED: NS 1,000 ML IV ONE (12:20)
--- NOTE | 2021-04-14 12:31 | REP ---
INDICATION: sob, cough. COMPARISON: Two-view chest, 11/14/2020. TECHNIQUE: AP portable chest image. FINDINGS: The lungs are clear. There is cardiomegaly and aortic ectasia consistent with benign essential hypertension. There is calcific vascular disease of the thoracic aorta. IMPRESSION: Findings consistent hypertension. No evidence of acute cardiopulmonary. <Electronically signed by Jony Cee > 04/14/21 [id number]
[2021-04-14] MEDS ORDERED: KETOROLAC 30 MG/ML 1ML VIAL IV ONE (12:45)
[2021-04-14] MEDS ORDERED: ACETAMINOPHEN 325 MG TAB PO ONE (12:45)
[2021-04-14] MEDS ORDERED: ALBUTEROL 90 MCG/ACT 8GM HFA INHALER INH ONE (12:50)
--- NOTE | 2021-04-14 13:38 | REPVR ---
PROCEDURE INFORMATION: Exam: CT Head Without Contrast Exam date and time: 04/14/2021 12:19 PM Age: 76 years old Clinical indication: Headache, dizziness TECHNIQUE: Imaging protocol: Computed tomography of the head without contrast. Radiation optimization: All CT scans at this facility use at least one of these dose optimization techniques: automated exposure control; mA and/or kV adjustment per patient size (includes targeted exams where dose is matched to clinical indication); or iterative reconstruction. COMPARISON: US THYROID, SOFT TISSUE HEAD/NECK - OUTSIDE PRIOR 05/17/2018 12:00 AM FINDINGS: Brain: Normal. No hemorrhage. Unremarkable white matter. No mass effect. Cerebral ventricles: No ventriculomegaly. Paranasal sinuses: Visualized sinuses are unremarkable. No fluid levels. Mastoid air cells: Visualized mastoid air cells are well aerated. Bones/joints: Unremarkable. No acute fracture. Soft tissues: Unremarkable. IMPRESSION: No acute intracranial abnormality. Electronically signed by: Mervin Riddle On 04/14/2021 13:38:35 PM
[2021-04-14] MEDS ORDERED: BENZ200C70 PO (14:04)
[2021-04-14] MEDS ORDERED: AUGM875T28 PO (14:04)
[2021-04-14] MEDS ORDERED: VENTAER INH (14:04)
[2021-04-14 14:25] VITALS: BP 132/84
[2021-04-14 14:41] LABS: RSV AMPLIFICATION NEGATIVE (NEGATIVE)
--- NOTE | 2021-04-14 18:19 | ECGEPIP ---
[facility] - ED Test Date: 2021-04-14 Pat Name: MANOLO FARRAR Department: Room: - Gender: Male Judge: PANKAJROSEYAFAI : 1945 Requested By: DORA CANO PA-C. Order Number: [id number] Reading MD: Galo Arreaga Measurements Intervals Rembert Rate: 72 P: 23 CO: 200 QRS: -74 QRSD: 144 T: -9 QT: 426 QTc: 466 Interpretive Statements Normal sinus rhythm Right bundle branch block Left anterior fascicular block Bifascicular block Nonspecific T wave abnormality Similar to tracing done 12-29-19 Electronically Signed on 04-14-2021 18:18:54 EST by Galo Arreaga
== END 2021-04-14 14:29 | disposition home or self-care (01) ==
LOC: M ED 09:45
DX: J01.90 Acute sinusitis, unspecified (principal); Z88.6 Allergy status to analgesic agent
CPT/HCPCS: 70450; 71045; 80047; 82550; 82553; 84484; 85025; 87631; 93005; 94640; 94664; 96361; 96374; 99284; J1885

== ENCOUNTER → 2021-05-30 | Outpatient (CLI) | payer MEDICARE ==
[~2021-05-30] MED LIST changes: +AUGM875T28 PO; +BENZ200C70 PO; +TIZA10TA PO; -TIZA4TAB4 PO; +VENTAER INH
== END ==
LOC: M PLAIMG 13:05
PROVIDERS: ATTEND Otolaryngology
DX: J32.4 Chronic pansinusitis (principal)

== ENCOUNTER → 2021-06-18 | Outpatient (CLI) | payer MEDICARE ==
[~2021-06-18] MED LIST changes: +ISOVUE-300 61% 50ML VIAL As Ordered ONE; +LIDOCAINE 1% MDV 20ML VIAL As Ordered ONE; +methylPREDNISolone SUSP 40MG/ML 1ML VIAL (DEPO MEDROL) As Ordered ONE
== END ==
LOC: M RADPRO 10:11
PROVIDERS: ATTEND Physician Assistant
DX: M19.011 Primary osteoarthritis, right shoulder (principal)
CPT/HCPCS: 20610; 77002; J1030; Q9967

== ENCOUNTER → 2021-08-01 | Outpatient (CLI) | payer MEDICARE ==
[~2021-08-01] MED LIST changes: +ECOT81TA5 PO; -ISOVUE-300 61% 50ML VIAL As Ordered ONE; -LIDOCAINE 1% MDV 20ML VIAL As Ordered ONE; +ROSU40TA4 PO; +VITA100093 PO; +VITMTA PO; -methylPREDNISolone SUSP 40MG/ML 1ML VIAL (DEPO MEDROL) As Ordered ONE
== END ==
LOC: M LABSMTC 11:38
PROVIDERS: ATTEND Anesthesiology
DX: Z01.812 Encounter for preprocedural laboratory examination (principal); Z20.822 Contact with and (suspected) exposure to COVID-19

== ENCOUNTER 2021-08-06 07:55 | Day surgery (SDC) | payer MEDICARE ==
[~2021-08-06] VITALS: Ht 170.2 cm; Wt 84.9 kg
[2021-08-06] MEDS ORDERED: LIDOCAINE W/EPINEPHRINE 1% 20ML VIAL As Ordered ONE (09:26)
[2021-08-06] MEDS ORDERED: METHYLENE BLUE 0.5% (5MG/ML) 10 ML AMP (PROVAYBLUE) As Ordered ONE (09:26)
[2021-08-06] MEDS ORDERED: fentaNYL 100 MCG/2 ML INJECTION As Ordered ONE (09:27)
[2021-08-06] MEDS ORDERED: EPINEPHrine 1MG/ML INJ 30ML MD-VIAL As Ordered ONE (09:27)
[2021-08-06] MEDS ORDERED: dexameTHASONE 4 MG/ML 1ML VIAL (J1100 PER 1MG) As Ordered ONE (09:28)
[2021-08-06] MEDS ORDERED: LIDOCAINE 2% 100MG/5ML SDV (FOR ANES.) As Ordered ONE ×2 (09:28→11:05)
[2021-08-06] MEDS ORDERED: ONDANSETRON 4MG/2ML VIAL As Ordered ONE (09:28)
[2021-08-06] MEDS ORDERED: propofoL 200 MG/20 ML VIAL As Ordered ONE (09:28)
[2021-08-06] MEDS ORDERED: SUGAMMADEX SODIUM 500 MG/5 ML VIAL (BRIDION) As Ordered ONE (09:28)
[2021-08-06] MEDS ORDERED: ROCURONIUM BROMIDE 50 MG/5 ML VIAL As Ordered ONE (09:28)
[2021-08-06] MEDS ORDERED: GLYCOPYRROLATE INJ 0.2 MG/ML 2 ML VIAL As Ordered ONE (10:18)
[2021-08-06] MEDS ORDERED: ACETAMINOPHEN 1000MG 100ML IV BTL (OFIRMEV) (J0131 PER 10MG) As Ordered ONE (10:42)
[2021-08-06] MEDS ORDERED: ePHEDrine SULFATE 25 MG/5 ML(5MG/ML) SYRINGE As Ordered ONE (10:49)
[2021-08-06] MEDS ORDERED: PHENYLephrine 500MCG 5ML (100MCG/ML) SYRINGE As Ordered ONE (10:53)
[2021-08-06] MEDS ORDERED: ONDANSETRON 4MG/2ML VIAL IV PRN (12:20)
[2021-08-06] MEDS ORDERED: fentaNYL 100 MCG/2 ML INJECTION IV PRN (12:20)
[2021-08-06] MEDS ORDERED: LR 1,000 ML IV SCH (12:20)
[2021-08-06] MEDS ORDERED: oxyCODONE 5MG TAB PO PRN (12:20)
[2021-08-06 12:40] VITALS: BP 116/73
== END 2021-08-06 13:09 | disposition home or self-care (01) ==
LOC: M SDC 07:55
PROVIDERS: ATTEND Otolaryngology
DX: J32.0 Chronic maxillary sinusitis (principal); J34.2 Deviated nasal septum; I71.4 Abdominal aortic aneurysm, without rupture; Z88.5 Allergy status to narcotic agent; E78.5 Hyperlipidemia, unspecified; R73.03 Prediabetes; B18.1 Chronic viral hepatitis B without delta-agent; Z79.52 Long term (current) use of systemic steroids; R06.02 Shortness of breath; N40.0 Benign prostatic hyperplasia without lower urinary tract symptoms; K58.8 Other irritable bowel syndrome; K21.9 Gastro-esophageal reflux disease without esophagitis; F32.9 Major depressive disorder, single episode, unspecified; G43.909 Migraine, unspecified, not intractable, without status migrainosus; Z79.899 Other long term (current) drug therapy
CPT/HCPCS: 30520; 31267; 87102; 88300; J0131; J0171; J1100; J2370; J2405; J3010; Q9968

== ENCOUNTER → 2021-08-25 | Outpatient (CLI) | payer MEDICARE ==
[~2021-08-25] MED LIST changes: +E-Z-GAS II EFFERVESCENT PACKET (SODIUM BICARB./CITRIC ACID/SIMETHICONE) As Ordered ONE; +E-Z-HD 98% w/w 340GM SUSP BTL As Ordered ONE; +E-Z-PAQUE 96% w/w SUSP 176GM BTL As Ordered ONE
== END ==
LOC: M RAD 09:13
PROVIDERS: ATTEND Otolaryngology
DX: R13.10 Dysphagia, unspecified (principal); M25.78 Osteophyte, vertebrae; K21.9 Gastro-esophageal reflux disease without esophagitis

== ENCOUNTER → 2021-08-29 | Outpatient (CLI) | payer MEDICARE ==
[~2021-08-29] MED LIST changes: -E-Z-GAS II EFFERVESCENT PACKET (SODIUM BICARB./CITRIC ACID/SIMETHICONE) As Ordered ONE; -E-Z-HD 98% w/w 340GM SUSP BTL As Ordered ONE; -E-Z-PAQUE 96% w/w SUSP 176GM BTL As Ordered ONE; +ISOVUE-300 61% 50ML VIAL As Ordered ONE; +LIDOCAINE 1% MDV 20ML VIAL As Ordered ONE; +methylPREDNISolone SUSP 40MG/ML 1ML VIAL (DEPO MEDROL) As Ordered ONE
== END ==
LOC: M RADPRO 13:58
PROVIDERS: ATTEND Physician Assistant
DX: M19.012 Primary osteoarthritis, left shoulder (principal)
CPT/HCPCS: 20610; 77002; J1030; Q9967

== ENCOUNTER 2021-11-03 19:15 | Emergency (ER) | payer MEDICAID, MEDICARE ==
[~2021-11-03] VITALS: Ht 170.2 cm; Wt 82.7 kg
[2021-11-03 19:15] VITALS: BP 150/92
[~2021-11-03 19:15] MED LIST changes: -ISOVUE-300 61% 50ML VIAL As Ordered ONE; -LIDOCAINE 1% MDV 20ML VIAL As Ordered ONE; -TRIA37.53 PO; +TRIA37.577 PO; -methylPREDNISolone SUSP 40MG/ML 1ML VIAL (DEPO MEDROL) As Ordered ONE
[2021-11-03] MEDS ORDERED: BOOSTRIX/ADACEL VACCINE (DIPHTH/PERTUSS/ACELL/TETANUS) 0.5ML SYR IM ONE (20:10)
[2021-11-03] MEDS ORDERED: ACETAMINOPHEN 325 MG TAB PO ONE (20:15)
[2021-11-03] MEDS ORDERED: BACITRACIN OINTMENT 30GM TUBE TOP ONE (20:50)
== END 2021-11-03 21:28 | disposition home or self-care (01) ==
LOC: M ED 19:15
DX: S09.90XA Unspecified injury of head, initial encounter (principal); S40.212A Abrasion of left shoulder, initial encounter; W01.0XXA Fall on same level from slipping, tripping and stumbling without subsequent striking against object, initial encounter; Z88.5 Allergy status to narcotic agent; Y92.017 Garden or yard in single-family (private) house as the place of occurrence of the external cause; Y93.9 Activity, unspecified; Y99.9 Unspecified external cause status; Z79.51 Long term (current) use of inhaled steroids; Z79.899 Other long term (current) drug therapy

== ENCOUNTER → 2022-03-02 | Outpatient (CLI) | payer MEDICARE ==
[~2022-03-02] MED LIST changes: +ISOVUE-300 61% 50ML VIAL ONE; +LIDOCAINE 1% MDV 20ML VIAL ONE; +TRIAMCINOLONE ACETONIDE SUSP 40 MG/ML VIAL (J3301) ONE
== END ==
LOC: M PLAIMG 14:47
PROVIDERS: ATTEND Physician Assistant
DX: M19.011 Primary osteoarthritis, right shoulder (principal)
CPT/HCPCS: 20610; 76000; J3301; Q9967

== ENCOUNTER 2022-03-11 11:46 | Emergency (ER) | payer MEDICARE ==
[~2022-03-11] VITALS: Ht 170.2 cm; Wt 80.8 kg
[~2022-03-11 11:46] MED LIST changes: -ISOVUE-300 61% 50ML VIAL ONE; -LIDOCAINE 1% MDV 20ML VIAL ONE; -TRIAMCINOLONE ACETONIDE SUSP 40 MG/ML VIAL (J3301) ONE
[2022-03-11 14:57] LABS: HEMATOCRIT 37.5 % (42.0-52.0); HEMOGLOBIN 12.1 g/dl (13.5-17.5); MEAN CORPUSCULAR HGB CONC 32.3 g/dl (32.0-36.5); MEAN CORPUSCULAR VOLUME 93.1 fl (80.0-96.0); PLATELET COUNT, AUTOMATED 203 10^3/uL (150-450); RED BLOOD COUNT 4.03 10^6/uL (4.30-6.10); WHITE BLOOD COUNT 9.5 10^3/uL (4.0-10.0)
[2022-03-11 15:29] LABS: ALBUMIN 2.7 GM/DL (3.2-5.2); ALT/SGPT 32 U/L (12-78); BILIRUBIN,TOTAL 0.2 MG/DL (0.2-1.0); BLOOD UREA NITROGEN 25 MG/DL (7-18); CALCIUM LEVEL 8.4 MG/DL (8.8-10.2); CARBON DIOXIDE LEVEL 24 MEQ/L (21-32); CHLORIDE LEVEL 111 MEQ/L (98-107); GLOMERULAR FILTRATION RATE > 60.0 (>42); GLUCOSE, FASTING 113 MG/DL (70-100); POTASSIUM SERUM 3.9 MEQ/L (3.5-5.1); SODIUM LEVEL 141 MEQ/L (136-145); TOTAL PROTEIN 6.1 GM/DL (6.4-8.2)
[2022-03-11] MEDS ORDERED: LEVO1TAB39 PO (15:41)
[2022-03-11 16:08] VITALS: BP 135/81
== END 2022-03-11 16:16 | disposition home or self-care (01) ==
LOC: M ED 14:21
DX: N45.1 Epididymitis (principal); N43.3 Hydrocele, unspecified; N39.0 Urinary tract infection, site not specified; G43.909 Migraine, unspecified, not intractable, without status migrainosus; I10 Essential (primary) hypertension; Z88.5 Allergy status to narcotic agent; Z79.51 Long term (current) use of inhaled steroids; Z79.811 Long term (current) use of aromatase inhibitors; Z79.899 Other long term (current) drug therapy

== ENCOUNTER → 2022-03-24 | Outpatient (CLI) | payer MEDICARE ==
[~2022-03-24] MED LIST changes: +ALBU8.5H INH; +CILO100T3 PO; +DICL1GEL3 TOP; +FLON1SPR; +KETO0.02 OU; +LEVO1TAB39 PO; +MAGN400C PO; +MIRA3350 PO; +OMEP40CA5 PO; +POTA-151 PO; +PROHANCE 279.3MG/ML 15ML VIAL ONE; +PROP20TA72 PO; +PROP60CA PO; +RAMI1CAP21 PO; +TOPA50TA8 PO
== END ==
LOC: M PLAIMG 08:51
PROVIDERS: ATTEND Nurse Practitioner Adult Health
DX: R51.9 Headache, unspecified (principal)
CPT/HCPCS: 70553; A9576

== ENCOUNTER 2022-03-27 02:03 | Inpatient (IN) | payer MEDICARE ==
[~2022-03-27] VITALS: Ht 172.7 cm; Wt 80.0 kg
[~2022-03-27 02:03] MED LIST changes: -ALBU8.5H INH; -CILO100T3 PO; -DICL1GEL3 TOP; -FLON1SPR; -KETO0.02 OU; -MAGN400C PO; -MIRA3350 PO; -OMEP40CA5 PO; -POTA-151 PO; -PROHANCE 279.3MG/ML 15ML VIAL ONE; -PROP20TA72 PO; -PROP60CA PO; -RAMI1CAP21 PO; -TOPA50TA8 PO
[2022-03-27 04:05] LABS: BASO % 0.2 % (0.0-1.0); EOS # 0.2 10^3/uL (0.0-0.5); EOS % 2.2 % (0.0-3.0); HEMATOCRIT 36.6 % (42.0-52.0); HEMOGLOBIN 12.1 g/dl (13.5-17.5); LYMPH # 1.8 10^3/uL (1.5-5.0); LYMPH % 20.4 % (24.0-44.0); MEAN CORPUSCULAR HEMOGLOBIN 30.3 pg (27.0-33.0); MEAN CORPUSCULAR HGB CONC 33.1 g/dl (32.0-36.5); MEAN CORPUSCULAR VOLUME 91.7 fl (80.0-96.0); MONO # 0.8 10^3/uL (0.0-0.8); MONO % 9.1 % (2.0-8.0); NEUTROPHILS # 5.9 10^3/uL (1.5-8.5); NEUTROPHILS % 67.8 % (36.0-66.0); PLATELET COUNT, AUTOMATED 204 10^3/uL (150-450); RED BLOOD COUNT 3.99 10^6/uL (4.30-6.10); WHITE BLOOD COUNT 8.6 10^3/uL (4.0-10.0)
[2022-03-27] MEDS ORDERED: MORPHINE 2 MG/ML 1ML VIAL IV ONE (04:15)
[2022-03-27 04:46] LABS: ALBUMIN 3.5 G/DL (3.2-5.2); ALKALINE PHOSPHATASE 58 U/L (46-116); ALT/SGPT 24 U/L (7.0-40); AST/SGOT 23 U/L (<34); BILIRUBIN,TOTAL 0.5 MG/DL (0.3-1.2); BLOOD UREA NITROGEN 24 MG/DL (9-23); CALCIUM LEVEL 8.3 MG/DL (8.3-10.6); CARBON DIOXIDE LEVEL 22 MMOL/L (20-31); CHLORIDE LEVEL 106 MMOL/L (98-107); CK-MB VALUE MASS 1.1 NG/ML (<3.6); CPK CREATINE PHOSPHOKINASE 176 U/L (46-171); CREATININE FOR GFR 1.16 MG/DL (0.70-1.30); GLOMERULAR FILTRATION RATE > 60.0 (>42); GLUCOSE, FASTING 114 MG/DL (74-106); MAGNESIUM LEVEL 1.5 MG/DL (1.8-2.4); MB/CK RELATIVE INDEX 0.62 (< OR =4); SODIUM LEVEL 140 MMOL/L (136-145); TOTAL PROTEIN 5.7 G/DL (5.7-8.2)
[2022-03-27] MEDS ORDERED: MAG SULF 1GM/100ML (MAG RUN) 1 GM in IV 1 EA IV ONE (06:15)
[2022-03-27] MEDS ORDERED: POTASSIUM CHLORIDE 10MEQ SR TABLET PO ONE ×2 (06:15)
[2022-03-27] MEDS ORDERED: OMEP40CA5 PO (07:13)
[2022-03-27] MEDS ORDERED: DICL1GEL3 TOP (07:13)
[2022-03-27] MEDS ORDERED: CILO100T3 PO (07:13)
[2022-03-27] MEDS ORDERED: ALBU8.5H INH (07:13)
[2022-03-27] MEDS ORDERED: PROP60CA PO (07:13)
[2022-03-27] MEDS ORDERED: RAMI1CAP21 PO (07:13)
[2022-03-27] MEDS ORDERED: TOPA50TA8 PO (07:13)
[2022-03-27] MEDS ORDERED: KETO0.02 OU (07:13)
[2022-03-27] MEDS ORDERED: FLON1SPR (07:13)
[2022-03-27] MEDS ORDERED: HOME MED LIST COMPLETE! XX SCH (07:15)
[2022-03-27] MEDS: CILOSTAZOL 100 MG TAB (PLETAL) PO SCH ×2 (07:30→16:37)
[2022-03-27] MEDS ORDERED: tiZANidine 4 MG TAB PO PRN (08:55)
[2022-03-27] MEDS ORDERED: DEXTROSE 50% 50 ML SYRINGE IV PRN (08:55)
[2022-03-27] MEDS ORDERED: GLUCAGON INJ 1MG VIAL SC PRN (08:55)
[2022-03-27] MEDS ORDERED: DICYCLOMINE 10 MG CAP PO PRN (08:55)
[2022-03-27] MEDS ORDERED: ALBUTEROL 90 MCG/ACT 8GM HFA INHALER INH PRN (08:55)
[2022-03-27] MEDS ORDERED: GLUCOSE 4GM CHEW TABLET PO PRN (08:55)
[2022-03-27] MEDS ORDERED: CILOSTAZOL 100 MG TAB (PLETAL) PO SCH (09:00)
[2022-03-27] MEDS ORDERED: PILL CUTTER 1 EACH XX PRN (09:10)
[2022-03-27] MEDS ORDERED: ACETAMINOPHEN 500 MG TAB PO PRN (09:30)
[2022-03-27 10:40] VITALS: BP 131/83
[2022-03-27 11:42] LABS: THYROID STIMULATING HORMONE 1.463 uIU/ML (0.55-4.78)
[2022-03-27] MEDS: LIDOCAINE 5% (LIDODERM) PATCH TD SCH (11:43)
[2022-03-27] MEDS: FLUTICASONE PROP 0.05% NASAL SPRAY 16 GM (FLONASE) SCH (11:44)
[2022-03-27] MEDS: ASPIRIN 81MG ENTERIC TABLET PO SCH (11:45)
[2022-03-27] MEDS: MAG SULF 1GM/100ML (MAG RUN) 1 GM in IV 1 EA IV SCH ×2 (11:45→14:04)
[2022-03-27] MEDS: VITAMIN D 1,000 INTERNATIONAL UNITS TABLET PO SCH (11:46)
[2022-03-27] MEDS: TOPIRAMATE (TopAMAX) 25 MG TAB PO SCH ×2 (11:46→20:53)
[2022-03-27] MEDS: MULTIVITAMINS/MINERALS THERAP 1 TAB PO SCH (11:49)
[2022-03-27 11:56] LABS: HEMOGLOBIN A1c 5.6 % (4.0-6.0)
[2022-03-27 12:00] VITALS: BP_SYST 107; BP_SYST 130; BP_DIAS 71; BP_DIAS 82
[2022-03-27] MEDS ORDERED: INSULIN LISPRO (NovoLOG) PER UNIT SC SCH ×2 (12:00→21:00)
[2022-03-27 14:00] VITALS: BP 115/71
[2022-03-27] MEDS ORDERED: LR 1,000 ML IV SCH (16:00)
[2022-03-27] MEDS: ROSUVASTATIN 10 MG TAB (CRESTOR) PO SCH (16:37)
[2022-03-27] MEDS: NORCO, ANEXSIA 5/325MG TABLET (HYDROcodone/ACETAMINOPHEN) PO PRN ×2 (16:37→22:42)
[2022-03-27 18:38] LABS: BLOOD UREA NITROGEN 17 MG/DL (9-23); CALCIUM LEVEL 8.2 MG/DL (8.3-10.6); CARBON DIOXIDE LEVEL 28 MMOL/L (20-31); CHLORIDE LEVEL 107 MMOL/L (98-107); CREATININE FOR GFR 0.93 MG/DL (0.70-1.30); GLOMERULAR FILTRATION RATE > 60.0 (>42); GLUCOSE, FASTING 126 MG/DL (74-106); POTASSIUM SERUM 3.5 MMOL/L (3.5-5.1); SODIUM LEVEL 142 MMOL/L (136-145)
[2022-03-27] MEDS ORDERED: DOCUSATE SODIUM 100MG CAPSULE PO PRN (19:00)
[2022-03-27] MEDS ORDERED: MIRALAX *UNIT DOSE* 17GM PACKET PO PRN (19:00)
[2022-03-27 20:13] VITALS: BP 115/71
[2022-03-27 20:46] VITALS: BP 115/70
[2022-03-27] MEDS: TAMSULOSIN 0.4 MG CAP PO SCH (20:52)
[2022-03-27] MEDS: ENOXAPARIN 40MG/0.4ML SYRINGE (J1650 PER 10MG) SC SCH (20:53)
[2022-03-27] MEDS: ramipriL 1.25 MG CAP PO SCH (20:53)
[2022-03-27] MEDS ORDERED: PROPRANOLOL 60 MG LA CAP PO SCH (21:00)
[2022-03-27] MEDS ORDERED: SERTRALINE HCL 50 MG TAB PO SCH (21:00)
[2022-03-27] MEDS: zolPIDEM TARTRATE 5 MG TAB PO SCH (21:25)
[2022-03-28 05:24] VITALS: BP_SYST 102; BP_SYST 123; BP_SYST 127; BP_DIAS 57; BP_DIAS 76
[2022-03-28] MEDS: NORCO, ANEXSIA 5/325MG TABLET (HYDROcodone/ACETAMINOPHEN) PO PRN ×3 (06:00→21:43)
[2022-03-28 06:29] LABS: BASO % 0.6 % (0.0-1.0); EOS # 0.2 10^3/uL (0.0-0.5); EOS % 4.2 % (0.0-3.0); HEMATOCRIT 32.8 % (42.0-52.0); HEMOGLOBIN 10.9 g/dl (13.5-17.5); LYMPH # 1.8 10^3/uL (1.5-5.0); LYMPH % 35.2 % (24.0-44.0); MEAN CORPUSCULAR HEMOGLOBIN 30.9 pg (27.0-33.0); MEAN CORPUSCULAR HGB CONC 33.2 g/dl (32.0-36.5); MEAN CORPUSCULAR VOLUME 92.9 fl (80.0-96.0); MONO # 0.5 10^3/uL (0.0-0.8); MONO % 10.1 % (2.0-8.0); NEUTROPHILS # 2.5 10^3/uL (1.5-8.5); NEUTROPHILS % 49.5 % (36.0-66.0); PLATELET COUNT, AUTOMATED 162 10^3/uL (150-450); RED BLOOD COUNT 3.53 10^6/uL (4.30-6.10); WHITE BLOOD COUNT 5.1 10^3/uL (4.0-10.0)
[2022-03-28 07:26] LABS: ALKALINE PHOSPHATASE 57 U/L (46-116); ALT/SGPT 21 U/L (7.0-40); AST/SGOT 19 U/L (<34); BILIRUBIN,TOTAL 0.4 MG/DL (0.3-1.2); BLOOD UREA NITROGEN 16 MG/DL (9-23); CALCIUM LEVEL 8.2 MG/DL (8.3-10.6); CARBON DIOXIDE LEVEL 25 MMOL/L (20-31); CHLORIDE LEVEL 109 MMOL/L (98-107); CREATININE FOR GFR 0.89 MG/DL (0.70-1.30); GLOMERULAR FILTRATION RATE > 60.0 (>42); GLUCOSE, FASTING 105 MG/DL (74-106); POTASSIUM SERUM 3.4 MMOL/L (3.5-5.1); SODIUM LEVEL 143 MMOL/L (136-145); TOTAL PROTEIN 5.1 G/DL (5.7-8.2)
[2022-03-28] MEDS: CILOSTAZOL 100 MG TAB (PLETAL) PO SCH ×2 (07:41→16:39)
[2022-03-28] MEDS: ASPIRIN 81MG ENTERIC TABLET PO SCH (08:33)
[2022-03-28] MEDS: MULTIVITAMINS/MINERALS THERAP 1 TAB PO SCH (08:34)
[2022-03-28] MEDS: TOPIRAMATE (TopAMAX) 25 MG TAB PO SCH ×2 (08:34→20:37)
[2022-03-28] MEDS: VITAMIN D 1,000 INTERNATIONAL UNITS TABLET PO SCH (08:34)
[2022-03-28] MEDS: FLUTICASONE PROP 0.05% NASAL SPRAY 16 GM (FLONASE) SCH (08:35)
[2022-03-28 08:37] LABS: MAGNESIUM LEVEL 1.9 MG/DL (1.8-2.4)
[2022-03-28] MEDS ORDERED: DYAZIDE 37.5/25 CAP (TRIAM/HCTZ) PO SCH (09:00)
[2022-03-28] MEDS ORDERED: POTASSIUM CHLORIDE 10MEQ SR TABLET PO ONE (09:00)
[2022-03-28] MEDS: LIDOCAINE 5% (LIDODERM) PATCH TD SCH (11:03)
[2022-03-28 14:00] VITALS: BP 108/57
[2022-03-28] MEDS: ROSUVASTATIN 10 MG TAB (CRESTOR) PO SCH (16:39)
[2022-03-28] MEDS: POLYVINYL ALCOHOL OPHTH SOLN 15 ML(LIQUITEARS) OU PRN (16:42)
[2022-03-28] MEDS: TAMSULOSIN 0.4 MG CAP PO SCH (20:37)
[2022-03-28] MEDS: zolPIDEM TARTRATE 5 MG TAB PO SCH (20:37)
[2022-03-28] MEDS: ENOXAPARIN 40MG/0.4ML SYRINGE (J1650 PER 10MG) SC SCH (20:37)
[2022-03-28] MEDS: SERTRALINE HCL 25 MG TABLET PO SCH (20:38)
[2022-03-28] MEDS: ramipriL 1.25 MG CAP PO SCH (20:51)
[2022-03-28] MEDS: PROPRANOLOL 20 MG TAB PO SCH (21:00)
[2022-03-28] MEDS ORDERED: PROPRANOLOL 20 MG TAB PO SCH (21:00)
[2022-03-29 06:13] VITALS: BP 120/67
[2022-03-29 06:15] LABS: BASO % 0.6 % (0.0-1.0); EOS # 0.2 10^3/uL (0.0-0.5); EOS % 4.4 % (0.0-3.0); HEMATOCRIT 31.6 % (42.0-52.0); HEMOGLOBIN 10.4 g/dl (13.5-17.5); LYMPH # 1.7 10^3/uL (1.5-5.0); MEAN CORPUSCULAR HEMOGLOBIN 30.9 pg (27.0-33.0); MEAN CORPUSCULAR HGB CONC 32.9 g/dl (32.0-36.5); MEAN CORPUSCULAR VOLUME 93.8 fl (80.0-96.0); MONO # 0.4 10^3/uL (0.0-0.8); MONO % 8.8 % (2.0-8.0); NEUTROPHILS # 2.4 10^3/uL (1.5-8.5); NEUTROPHILS % 49.8 % (36.0-66.0); PLATELET COUNT, AUTOMATED 152 10^3/uL (150-450); RED BLOOD COUNT 3.37 10^6/uL (4.30-6.10); WHITE BLOOD COUNT 4.8 10^3/uL (4.0-10.0)
[2022-03-29 06:38] LABS: BLOOD UREA NITROGEN 18 MG/DL (9-23); CALCIUM LEVEL 8.3 MG/DL (8.3-10.6); CARBON DIOXIDE LEVEL 24 MMOL/L (20-31); CHLORIDE LEVEL 111 MMOL/L (98-107); CREATININE FOR GFR 1.02 MG/DL (0.70-1.30); GLOMERULAR FILTRATION RATE > 60.0 (>42); GLUCOSE, FASTING 102 MG/DL (74-106); MAGNESIUM LEVEL 1.7 MG/DL (1.8-2.4); POTASSIUM SERUM 3.9 MMOL/L (3.5-5.1); SODIUM LEVEL 144 MMOL/L (136-145)
[2022-03-29] MEDS: CILOSTAZOL 100 MG TAB (PLETAL) PO SCH ×2 (08:02→16:41)
[2022-03-29] MEDS: MAG SULF 1GM/100ML (MAG RUN) 1 GM in IV 1 EA IV SCH ×2 (08:03→08:39)
[2022-03-29] MEDS: TOPIRAMATE (TopAMAX) 25 MG TAB PO SCH ×2 (08:35→21:07)
[2022-03-29] MEDS: MULTIVITAMINS/MINERALS THERAP 1 TAB PO SCH (08:35)
[2022-03-29] MEDS: ASPIRIN 81MG ENTERIC TABLET PO SCH (08:35)
[2022-03-29] MEDS: POLYVINYL ALCOHOL OPHTH SOLN 15 ML(LIQUITEARS) OU PRN (08:36)
[2022-03-29] MEDS: FLUTICASONE PROP 0.05% NASAL SPRAY 16 GM (FLONASE) SCH (08:36)
[2022-03-29] MEDS: VITAMIN D 1,000 INTERNATIONAL UNITS TABLET PO SCH (08:38)
[2022-03-29] MEDS: LIDOCAINE 5% (LIDODERM) PATCH TD SCH (08:38)
[2022-03-29] MEDS: NORCO, ANEXSIA 5/325MG TABLET (HYDROcodone/ACETAMINOPHEN) PO PRN ×2 (10:11→18:31)
[2022-03-29 14:00] VITALS: BP 113/73
[2022-03-29] MEDS: ROSUVASTATIN 10 MG TAB (CRESTOR) PO SCH (16:42)
[2022-03-29] MEDS: PROPRANOLOL 20 MG TAB PO SCH (21:07)
[2022-03-29] MEDS: TAMSULOSIN 0.4 MG CAP PO SCH (21:07)
[2022-03-29] MEDS: ENOXAPARIN 40MG/0.4ML SYRINGE (J1650 PER 10MG) SC SCH (21:07)
[2022-03-29] MEDS: SERTRALINE HCL 25 MG TABLET PO SCH (21:08)
[2022-03-29] MEDS: zolPIDEM TARTRATE 5 MG TAB PO SCH (21:08)
[2022-03-29 22:13] VITALS: BP 128/86
[2022-03-29] MEDS: ramipriL 1.25 MG CAP PO SCH (22:13)
[2022-03-30 04:43] VITALS: BP 135/71
[2022-03-30] MEDS: NORCO, ANEXSIA 5/325MG TABLET (HYDROcodone/ACETAMINOPHEN) PO PRN ×2 (05:29→11:19)
[2022-03-30 06:47] LABS: BLOOD UREA NITROGEN 16 MG/DL (9-23); CALCIUM LEVEL 8.2 MG/DL (8.3-10.6); CARBON DIOXIDE LEVEL 24 MMOL/L (20-31); CHLORIDE LEVEL 111 MMOL/L (98-107); CREATININE FOR GFR 0.97 MG/DL (0.70-1.30); GLOMERULAR FILTRATION RATE > 60.0 (>42); GLUCOSE, FASTING 112 MG/DL (74-106); MAGNESIUM LEVEL 1.7 MG/DL (1.8-2.4); POTASSIUM SERUM 3.5 MMOL/L (3.5-5.1); SODIUM LEVEL 142 MMOL/L (136-145)
[2022-03-30] MEDS: CILOSTAZOL 100 MG TAB (PLETAL) PO SCH (07:50)
[2022-03-30] MEDS ORDERED: POTASSIUM CHLORIDE 10MEQ SR TABLET PO ONE (08:00)
[2022-03-30] MEDS ORDERED: MAGNESIUM OXIDE 400MG TAB (MAG-OX) PO SCH (09:00)
[2022-03-30] MEDS: LIDOCAINE 5% (LIDODERM) PATCH TD SCH (09:00)
[2022-03-30] MEDS: TOPIRAMATE (TopAMAX) 25 MG TAB PO SCH (10:26)
[2022-03-30] MEDS: VITAMIN D 1,000 INTERNATIONAL UNITS TABLET PO SCH (10:27)
[2022-03-30] MEDS: ASPIRIN 81MG ENTERIC TABLET PO SCH (10:27)
[2022-03-30] MEDS: MULTIVITAMINS/MINERALS THERAP 1 TAB PO SCH (10:27)
[2022-03-30] MEDS: FLUTICASONE PROP 0.05% NASAL SPRAY 16 GM (FLONASE) SCH (10:27)
[2022-03-30] MEDS ORDERED: POTA-151 PO (14:26)
[2022-03-30] MEDS ORDERED: MAGN400C PO (14:26)
[2022-03-30] MEDS ORDERED: PROP20TA72 PO (14:26)
[2022-03-30] MEDS ORDERED: MIRA3350 PO (14:26)
== END 2022-03-30 16:00 | disposition home health service (06) | DRG 554 ==
LOC: M ED 02:03 → M ED INP 08:20 → ENRESERV 08:28 → M MSPAV 10:34
PROVIDERS: ADMIT Internal Medicine; ATTEND Internal Medicine
DX: M17.0 Bilateral primary osteoarthritis of knee (principal); R29.6 Repeated falls; K27.7 Chronic peptic ulcer, site unspecified, without hemorrhage or perforation; R26.89 Other abnormalities of gait and mobility; I10 Essential (primary) hypertension; E78.5 Hyperlipidemia, unspecified; R73.03 Prediabetes; E87.6 Hypokalemia; F41.9 Anxiety disorder, unspecified; I73.9 Peripheral vascular disease, unspecified; E55.9 Vitamin D deficiency, unspecified; G43.909 Migraine, unspecified, not intractable, without status migrainosus; R13.10 Dysphagia, unspecified; Z20.822 Contact with and (suspected) exposure to COVID-19; Z79.82 Long term (current) use of aspirin; Z79.899 Other long term (current) drug therapy; Z88.5 Allergy status to narcotic agent; N40.0 Benign prostatic hyperplasia without lower urinary tract symptoms; I95.1 Orthostatic hypotension

== ENCOUNTER → 2022-04-08 | Outpatient (CLI) | payer MEDICARE ==
[~2022-04-08] MED LIST changes: +ALBU8.5H INH; +CILO100T3 PO; +DICL1GEL3 TOP; +FLON1SPR; +KETO0.02 OU; +MAGN400C PO; +MIRA3350 PO; +OMEP40CA5 PO; +POTA-151 PO; +PROP20TA72 PO; +PROP60CA PO; +RAMI1CAP21 PO; +TOPA50TA8 PO
== END ==
LOC: M LABSMTC 11:35
PROVIDERS: ATTEND Anesthesiology
DX: Z01.812 Encounter for preprocedural laboratory examination (principal); Z20.822 Contact with and (suspected) exposure to COVID-19

== ENCOUNTER 2022-04-13 11:43 | Day surgery (SDC) | payer MEDICARE ==
[~2022-04-13] VITALS: Ht 171.4 cm; Wt 81.1 kg
[~2022-04-13 11:43] MED LIST changes: +NS 1,000 ML IV ONE
[2022-04-13 13:42] VITALS: BP 145/80
== END 2022-04-13 13:53 | disposition home or self-care (01) ==
LOC: M OPP 11:43
PROVIDERS: ATTEND Internal Medicine Gastroenterology
DX: K44.9 Diaphragmatic hernia without obstruction or gangrene (principal); R13.10 Dysphagia, unspecified; Z79.02 Long term (current) use of antithrombotics/antiplatelets; Z79.82 Long term (current) use of aspirin; Z79.891 Long term (current) use of opiate analgesic; Z79.899 Other long term (current) drug therapy; Z88.5 Allergy status to narcotic agent; E78.00 Pure hypercholesterolemia, unspecified; I10 Essential (primary) hypertension; F41.9 Anxiety disorder, unspecified; G43.909 Migraine, unspecified, not intractable, without status migrainosus; N40.0 Benign prostatic hyperplasia without lower urinary tract symptoms; Z86.19 Personal history of other infectious and parasitic diseases

== ENCOUNTER → 2022-05-08 | Outpatient (CLI) | payer MEDICARE ==
[~2022-05-08] MED LIST changes: -NS 1,000 ML IV ONE
== END ==
LOC: M PLAIMG 14:58
PROVIDERS: ATTEND Physician Assistant
DX: M19.012 Primary osteoarthritis, left shoulder (principal)

== ENCOUNTER → 2022-07-15 | Outpatient (CLI) | payer MEDICARE ==
[~2022-07-15] MED LIST changes: +BARIUM SULFATE 700 MG TABLET (E-Z-DISK) As Ordered ONE; +E-Z-HD 98% w/w 340GM SUSP BTL As Ordered ONE; +E-Z-PAQUE 96% w/w SUSP 176GM BTL As Ordered ONE; +VARIBAR NECTAR 40% w/v 240ML SUSP BTL As Ordered ONE; +VARIBAR PUDDING 40% w/v 230ML TUBE As Ordered ONE
== END ==
LOC: M RAD 10:27
PROVIDERS: ATTEND Nurse Practitioner Adult Health
DX: R13.10 Dysphagia, unspecified (principal)

== ENCOUNTER 2022-09-17 13:41 | Emergency (ER) | payer MEDICARE ==
[~2022-09-17] VITALS: Ht 170.2 cm; Wt 80.5 kg
[~2022-09-17 13:41] MED LIST changes: -BARIUM SULFATE 700 MG TABLET (E-Z-DISK) As Ordered ONE; -E-Z-HD 98% w/w 340GM SUSP BTL As Ordered ONE; -E-Z-PAQUE 96% w/w SUSP 176GM BTL As Ordered ONE; -KETO0.02 OU; +KETO5DRO33 OU; -VARIBAR NECTAR 40% w/v 240ML SUSP BTL As Ordered ONE; -VARIBAR PUDDING 40% w/v 230ML TUBE As Ordered ONE
[2022-09-17] MEDS ORDERED: PROP60CA (13:55)
[2022-09-17] MEDS ORDERED: GABA-1171 (13:55)
[2022-09-17] MEDS ORDERED: FURO20TA2 (13:55)
[2022-09-17] MEDS ORDERED: ACETAMINOPHEN 500 MG TAB PO ONE (14:25)
[2022-09-17 17:00] VITALS: BP 127/76
== END 2022-09-17 17:19 | disposition home or self-care (01) ==
LOC: EDBD 13:41 → M ED 14:43
DX: S39.012A Strain of muscle, fascia and tendon of lower back, initial encounter (principal); W01.0XXA Fall on same level from slipping, tripping and stumbling without subsequent striking against object, initial encounter; I10 Essential (primary) hypertension; E11.9 Type 2 diabetes mellitus without complications; K21.9 Gastro-esophageal reflux disease without esophagitis; E78.5 Hyperlipidemia, unspecified; Z88.5 Allergy status to narcotic agent; Y92.009 Unspecified place in unspecified non-institutional (private) residence as the place of occurrence of the external cause; Z79.82 Long term (current) use of aspirin; Z79.891 Long term (current) use of opiate analgesic; Z79.899 Other long term (current) drug therapy

== ENCOUNTER → 2022-09-22 | Outpatient (CLI) | payer MEDICARE, OTHER ==
[~2022-09-22] MED LIST changes: +FURO20TA2; +GABA-1171; +PROP60CA
== END ==
LOC: M RAD 10:11
PROVIDERS: ATTEND Internal Medicine
DX: M47.816 Spondylosis without myelopathy or radiculopathy, lumbar region (principal)

== ENCOUNTER → 2022-10-21 | Outpatient (REF) | payer MEDICARE | LOC: M LAB REF 16:09 | PROVIDERS: ATTEND Physician Assistant Medical | DX: J02.9 Acute pharyngitis, unspecified (principal) ==

== ENCOUNTER → 2022-11-24 | Outpatient (CLI) | payer MEDICARE, OTHER ==
[~2022-11-24] MED LIST changes: +DICL100G10 TOP; -DICL1GEL3 TOP; -GABA-283 PO; +GABA-284 PO
== END ==
LOC: M PAIN 08:00
PROVIDERS: ATTEND Nurse Practitioner Family
DX: M46.1 Sacroiliitis, not elsewhere classified (principal); M96.1 Postlaminectomy syndrome, not elsewhere classified; G89.29 Other chronic pain; I10 Essential (primary) hypertension; Z88.5 Allergy status to narcotic agent; Z79.899 Other long term (current) drug therapy

== ENCOUNTER 2023-01-18 17:06 | Emergency (ER) | payer MEDICARE, OTHER ==
[~2023-01-18] VITALS: Ht 170.2 cm; Wt 78.6 kg
[2023-01-18] MEDS ORDERED: ANEXSIA, NORCO 7.5MG/325MG TABLET(HYDROCODONE/APAP) PO ONE (19:20)
[2023-01-18 21:41] VITALS: BP 141/82; TEMP 98.2; O2SAT 96
== END 2023-01-18 21:48 | disposition home or self-care (01) ==
LOC: M ED 17:06
DX: S76.819A Strain of other specified muscles, fascia and tendons at thigh level, unspecified thigh, initial encounter (principal); M54.50 Low back pain, unspecified; K40.90 Unilateral inguinal hernia, without obstruction or gangrene, not specified as recurrent; E11.9 Type 2 diabetes mellitus without complications; I10 Essential (primary) hypertension; K21.9 Gastro-esophageal reflux disease without esophagitis; E78.5 Hyperlipidemia, unspecified; K57.92 Diverticulitis of intestine, part unspecified, without perforation or abscess without bleeding; Z79.82 Long term (current) use of aspirin; Z79.891 Long term (current) use of opiate analgesic; Z79.899 Other long term (current) drug therapy

== ENCOUNTER → 2023-03-04 | Outpatient (CLI) | payer OTHER ==
[~2023-03-04] MED LIST changes: +ISOVUE-300 61% 100ML VIAL As Ordered ONE; +LIDOCAINE 1% MDV 20ML VIAL As Ordered ONE; +methylPREDNISolone SUSP 40MG/ML 1ML VIAL (DEPO MEDROL) As Ordered ONE
== END ==
LOC: M RAD 12:39
PROVIDERS: ATTEND Physician Assistant
DX: M19.011 Primary osteoarthritis, right shoulder (principal)
CPT/HCPCS: 20610; 77002; J1030; Q9967

== ENCOUNTER → 2023-03-16 | Outpatient (CLI) | payer OTHER, MEDICARE ==
[~2023-03-16] MED LIST changes: -ISOVUE-300 61% 100ML VIAL As Ordered ONE; -LIDOCAINE 1% MDV 20ML VIAL As Ordered ONE; +TRIAMCINOLONE ACETONIDE SUSP 40MG/ML 1ML VIAL As Ordered ONE; -methylPREDNISolone SUSP 40MG/ML 1ML VIAL (DEPO MEDROL) As Ordered ONE
== END ==
LOC: M PAIN 10:15
PROVIDERS: ATTEND Anesthesiology
DX: M79.18 Myalgia, other site (principal); G89.29 Other chronic pain; Z88.5 Allergy status to narcotic agent; Z79.82 Long term (current) use of aspirin; Z79.899 Other long term (current) drug therapy
CPT/HCPCS: 20552; J0665; J3301

== ENCOUNTER → 2023-03-31 | Outpatient (CLI) | payer OTHER, MEDICARE ==
[~2023-03-31] MED LIST changes: -TRIAMCINOLONE ACETONIDE SUSP 40MG/ML 1ML VIAL As Ordered ONE
== END ==
LOC: M PLAIMG 09:56
PROVIDERS: ATTEND Internal Medicine
DX: I71.9 Aortic aneurysm of unspecified site, without rupture (principal)

== ENCOUNTER → 2023-04-02 | Outpatient (CLI) | payer MEDICARE | LOC: M WUC 09:41 | PROVIDERS: ATTEND Nurse Practitioner Adult Health | DX: M47.816 Spondylosis without myelopathy or radiculopathy, lumbar region (principal) ==

== ENCOUNTER → 2023-04-13 | Outpatient (CLI) | payer MEDICARE, OTHER ==
[~2023-04-13] MED LIST changes: +E-Z-GAS II EFFERVESCENT PACKET (SODIUM BICARB./CITRIC ACID/SIMETHICONE) As Ordered ONE; +E-Z-HD 98% w/w 340GM SUSP BTL As Ordered ONE; +E-Z-PAQUE 96% w/w SUSP 176GM BTL As Ordered ONE
== END ==
LOC: M RAD 10:11
PROVIDERS: ATTEND Nurse Practitioner Adult Health
DX: R13.10 Dysphagia, unspecified (principal)

== ENCOUNTER → 2023-04-19 | Outpatient (CLI) | payer OTHER, MEDICARE ==
[~2023-04-19] MED LIST changes: -E-Z-GAS II EFFERVESCENT PACKET (SODIUM BICARB./CITRIC ACID/SIMETHICONE) As Ordered ONE; -E-Z-HD 98% w/w 340GM SUSP BTL As Ordered ONE; -E-Z-PAQUE 96% w/w SUSP 176GM BTL As Ordered ONE
== END ==
LOC: M PAIN 11:15
PROVIDERS: ATTEND Nurse Practitioner Family
DX: M79.10 Myalgia, unspecified site (principal); M51.16 Intervertebral disc disorders with radiculopathy, lumbar region; G89.29 Other chronic pain; Z88.5 Allergy status to narcotic agent; Z79.82 Long term (current) use of aspirin; Z79.899 Other long term (current) drug therapy

== ENCOUNTER → 2023-04-23 | Outpatient (CLI) | payer MEDICARE, OTHER | LOC: M PLAIMG 09:29 | PROVIDERS: ATTEND Internal Medicine | DX: Z53.9 Procedure and treatment not carried out, unspecified reason (principal) ==

== ENCOUNTER → 2023-05-26 | Outpatient (CLI) | payer OTHER, MEDICARE | LOC: M PAIN 13:45 | PROVIDERS: ATTEND Anesthesiology | DX: M48.061 Spinal stenosis, lumbar region without neurogenic claudication (principal); M51.16 Intervertebral disc disorders with radiculopathy, lumbar region; G89.29 Other chronic pain; I10 Essential (primary) hypertension; E78.5 Hyperlipidemia, unspecified; Z79.82 Long term (current) use of aspirin; Z79.891 Long term (current) use of opiate analgesic; Z79.899 Other long term (current) drug therapy; Z88.5 Allergy status to narcotic agent ==

== ENCOUNTER → 2023-06-25 | Outpatient (CLI) | payer OTHER, MEDICARE | LOC: M WUC 10:27 | PROVIDERS: ATTEND Physician Assistant | DX: M25.572 Pain in left ankle and joints of left foot (principal) ==

== ENCOUNTER → 2023-06-25 | Outpatient (CLI) | payer OTHER ==
[~2023-06-25] MED LIST changes: +ISOVUE-300 61% 100ML VIAL As Ordered ONE; +LIDOCAINE 1% MDV 20ML VIAL As Ordered ONE; +methylPREDNISolone SUSP 40MG/ML 1ML VIAL (DEPO MEDROL) As Ordered ONE
== END ==
LOC: M RAD 13:00
PROVIDERS: ATTEND Physician Assistant
DX: M19.012 Primary osteoarthritis, left shoulder (principal); M25.572 Pain in left ankle and joints of left foot
CPT/HCPCS: 20610; 73610; 77002; J1030; Q9967

== ENCOUNTER → 2023-07-09 | Outpatient (CLI) | payer OTHER ==
[~2023-07-09] MED LIST changes: -ISOVUE-300 61% 100ML VIAL As Ordered ONE; -LIDOCAINE 1% MDV 20ML VIAL As Ordered ONE; -methylPREDNISolone SUSP 40MG/ML 1ML VIAL (DEPO MEDROL) As Ordered ONE
[2023-07-09 10:31] LABS: BLOOD UREA NITROGEN 20 MG/DL (9-23); CREATININE FOR GFR 1.21 MG/DL (0.70-1.30); GLOMERULAR FILTRATION RATE > 60.0 (>42)
== END ==
LOC: M LAB 09:32
PROVIDERS: ATTEND Physician Assistant Medical
DX: R22.1 Localized swelling, mass and lump, neck (principal)

== ENCOUNTER → 2023-07-13 | Outpatient (CLI) | payer OTHER ==
[~2023-07-13] MED LIST changes: +ISOVUE-370 76% 100ML VIAL ONE
== END ==
LOC: M PLAIMG 09:06
PROVIDERS: ATTEND Physician Assistant Medical
DX: R22.1 Localized swelling, mass and lump, neck (principal)
CPT/HCPCS: 70491; Q9967

== ENCOUNTER → 2023-07-27 | Outpatient (CLI) | payer OTHER ==
[~2023-07-27] MED LIST changes: -ISOVUE-370 76% 100ML VIAL ONE
== END ==
LOC: M PLAIMG 13:16
PROVIDERS: ATTEND Physician Assistant
DX: M43.26 Fusion of spine, lumbar region (principal); M25.78 Osteophyte, vertebrae; M48.02 Spinal stenosis, cervical region

== ENCOUNTER → 2023-07-28 | Outpatient (CLI) | payer OTHER, MEDICARE | LOC: M PAIN 13:45 | PROVIDERS: ATTEND Anesthesiology | DX: M48.062 Spinal stenosis, lumbar region with neurogenic claudication (principal); R23.3 Spontaneous ecchymoses; G89.29 Other chronic pain; I10 Essential (primary) hypertension; E78.5 Hyperlipidemia, unspecified; Z79.82 Long term (current) use of aspirin; Z79.891 Long term (current) use of opiate analgesic; Z79.899 Other long term (current) drug therapy; Z88.5 Allergy status to narcotic agent ==

== ENCOUNTER → 2023-08-30 | Outpatient (CLI) | payer OTHER ==
[~2023-08-30] MED LIST changes: +ISOVUE-300 61% 100ML VIAL As Ordered ONE; +LIDOCAINE 1% MDV 20ML VIAL As Ordered ONE; +TRIAMCINOLONE ACETONIDE SUSP 40MG/ML 1ML VIAL As Ordered ONE
== END ==
LOC: M RAD 13:36
PROVIDERS: ATTEND Physician Assistant
DX: M19.011 Primary osteoarthritis, right shoulder (principal)
CPT/HCPCS: 20610; 77002; J3301; Q9967

== ENCOUNTER → 2023-08-31 | Outpatient (CLI) | payer OTHER ==
[~2023-08-31] MED LIST changes: -ISOVUE-300 61% 100ML VIAL As Ordered ONE; -LIDOCAINE 1% MDV 20ML VIAL As Ordered ONE; -TRIAMCINOLONE ACETONIDE SUSP 40MG/ML 1ML VIAL As Ordered ONE
[2023-08-31 09:57] LABS: HEMATOCRIT 40.7 % (42.0-52.0); HEMOGLOBIN 13.8 g/dl (13.5-17.5); LYMPH # 1.1 10^3/uL (1.5-5.0); LYMPH % 13.6 % (24.0-44.0); MEAN CORPUSCULAR HEMOGLOBIN 30.9 pg (27.0-33.0); MEAN CORPUSCULAR HGB CONC 33.9 g/dl (32.0-36.5); MEAN CORPUSCULAR VOLUME 91.3 fl (80.0-96.0); MONO # 0.1 10^3/uL (0.0-0.8); MONO % 1.7 % (2.0-8.0); NEUTROPHILS % 84.2 % (36.0-66.0); PLATELET COUNT, AUTOMATED 189 10^3/uL (150-450); RED BLOOD COUNT 4.46 10^6/uL (4.30-6.10); WHITE BLOOD COUNT 8.3 10^3/uL (4.0-10.0)
[2023-08-31 10:09] LABS: INR 1.05; PARTIAL THROMBOPLASTIN TIME 31.1 SECONDS (24.8-34.2); PROTHROMBIN TIME 13.4 SECONDS (12.5-14.5)
[2023-08-31 10:28] LABS: COLLAGEN EPINEPHRINE 105 SECONDS (74-162)
== END ==
LOC: M PLALAB 08:21
PROVIDERS: ATTEND Internal Medicine Hematology
DX: R23.3 Spontaneous ecchymoses (principal)

== ENCOUNTER → 2023-10-08 | Outpatient (CLI) | payer MEDICARE, OTHER ==
[~2023-10-08] MED LIST changes: +B-12100011 PO; +CENT1TAB PO; +DICY-61 PO; +DSS100CA PO; -GABA-1171; +GABA-1171 PO; +HYDR-4514 PO; +KETO5DRO27 OP; +LIDO5TD TOP; +LORA-1041 PO; +MAGN400C2 PO; +RAMI1.258 PO; +RAMI10CA64 PO; -RAMI1CAP21 PO; -RAMI1CAP22 PO; -RAMI1CAP26 PO; +RAMI2.5C42 PO; -ROSU40TA4 PO; +ROSU40TA63 PO; +SENN-193 PO; +SIMPLY SALINE NARES; +TAMS1CAP17 PO; +TOPI-21 PO
== END ==
LOC: M PAIN 11:30
PROVIDERS: ATTEND Nurse Practitioner Family
DX: M51.16 Intervertebral disc disorders with radiculopathy, lumbar region (principal); G89.29 Other chronic pain; I10 Essential (primary) hypertension; E78.5 Hyperlipidemia, unspecified; Z79.82 Long term (current) use of aspirin; Z79.891 Long term (current) use of opiate analgesic; Z79.899 Other long term (current) drug therapy; Z88.5 Allergy status to narcotic agent

== ENCOUNTER 2023-11-02 10:36 | Day surgery (SDC) | payer MEDICAID, OTHER ==
[~2023-11-02] VITALS: Ht 170.2 cm; Wt 79.3 kg
[2023-11-02] MEDS: LR 1,000 ML IV SCH (11:55)
[2023-11-02] MEDS ORDERED: ROCURONIUM BROMIDE 50MG/5ML VIAL As Ordered ONE (12:46)
[2023-11-02] MEDS ORDERED: LIDOCAINE 2% 100MG/5ML SDV (FOR ANES.) As Ordered ONE (12:48)
[2023-11-02] MEDS ORDERED: fentaNYL 100 MCG/2 ML INJECTION As Ordered ONE (12:48)
[2023-11-02] MEDS: ANEXSIA, NORCO 7.5MG/325MG TABLET(HYDROCODONE/APAP) PO ONE (13:08)
[2023-11-02] MEDS: METHYLENE BLUE 0.5% (5MG/ML) 10 ML AMP (PROVAYBLUE) As Ordered ONE (13:30)
[2023-11-02] MEDS: OXYMETAZOLINE 0.05% NASAL SPRAY (AFRIN) As Ordered ONE (13:31)
[2023-11-02] MEDS: LIDOCAINE W/EPINEPHRINE 1% 20ML VIAL As Ordered ONE (13:31)
[2023-11-02] MEDS ORDERED: ONDANSETRON 4MG 2ML VIAL As Ordered ONE (14:04)
[2023-11-02] MEDS ORDERED: ACETAMINOPHEN 1000MG 100ML IV BAG As Ordered ONE (14:04)
[2023-11-02] MEDS ORDERED: propofoL 200 MG/20 ML VIAL As Ordered ONE (14:04)
[2023-11-02] MEDS ORDERED: SUGAMMADEX SODIUM 500 MG/5 ML VIAL (BRIDION) As Ordered ONE (14:04)
[2023-11-02] MEDS ORDERED: ePHEDrine SULFATE 25 MG/5 ML(5MG/ML) SYRINGE As Ordered ONE (14:22)
[2023-11-02] MEDS ORDERED: PHENYLephrine 500MCG 5ML (100MCG/ML) SYRINGE As Ordered ONE (14:22)
[2023-11-02] MEDS ORDERED: fentaNYL 100 MCG/2 ML INJECTION IV PRN (15:15)
[2023-11-02] MEDS ORDERED: HYDROMORPHONE HCL 0.5 MG/ 0.5 ML SYRINGE IV PRN (15:15)
[2023-11-02] MEDS ORDERED: ONDANSETRON 4MG 2ML VIAL IV PRN (15:15)
[2023-11-02] MEDS ORDERED: LR 1,000 ML IV SCH (15:15)
[2023-11-02] MEDS ORDERED: oxyCODONE 5MG TAB PO PRN (15:15)
[2023-11-02 16:31] VITALS: BP 132/77; TEMP 97.2; O2SAT 96
== END 2023-11-02 16:38 | disposition home or self-care (01) ==
LOC: M SDC 10:36
PROVIDERS: ATTEND Otolaryngology
DX: J39.2 Other diseases of pharynx (principal); R13.10 Dysphagia, unspecified; K58.9 Irritable bowel syndrome, unspecified; K21.9 Gastro-esophageal reflux disease without esophagitis; I10 Essential (primary) hypertension; E78.00 Pure hypercholesterolemia, unspecified; N40.0 Benign prostatic hyperplasia without lower urinary tract symptoms; M06.9 Rheumatoid arthritis, unspecified; Z79.899 Other long term (current) drug therapy; Z79.891 Long term (current) use of opiate analgesic; Z85.828 Personal history of other malignant neoplasm of skin; Z87.19 Personal history of other diseases of the digestive system; Z88.5 Allergy status to narcotic agent; Z90.89 Acquired absence of other organs
CPT/HCPCS: 31536; 88305; J0131; J1100; J2371; J2405; J3010; Q9968

== ENCOUNTER → 2024-01-21 | Outpatient (CLI) | payer OTHER ==
[~2024-01-21] MED LIST changes: +ISOVUE-300 61% 100ML VIAL As Ordered ONE; +LIDOCAINE 1% MDV 20ML VIAL As Ordered ONE; -ROSU40TA63 PO; +ROSU40TA81 PO; +methylPREDNISolone SUSP 40MG/ML 1ML VIAL (DEPO MEDROL) As Ordered ONE
== END ==
LOC: M RAD 12:53
PROVIDERS: ATTEND Physician Assistant
DX: M19.012 Primary osteoarthritis, left shoulder (principal)
CPT/HCPCS: 20610; 77002; J1010; Q9967

== ENCOUNTER → 2024-02-11 | Outpatient (CLI) | payer OTHER ==
[~2024-02-11] MED LIST changes: -ISOVUE-300 61% 100ML VIAL As Ordered ONE; +ISOVUE-M 300 61% 15ML VIAL As Ordered ONE; -LIDOCAINE 1% MDV 20ML VIAL As Ordered ONE; +LIDOCAINE 1% SDV 30ML VIAL As Ordered ONE; +dexAMETHasone 10MG/1ML VIAL PRES.FREE As Ordered ONE; -methylPREDNISolone SUSP 40MG/ML 1ML VIAL (DEPO MEDROL) As Ordered ONE
== END ==
LOC: M PAIN 08:30
PROVIDERS: ATTEND Anesthesiology
DX: M51.16 Intervertebral disc disorders with radiculopathy, lumbar region (principal); M48.061 Spinal stenosis, lumbar region without neurogenic claudication; Z53.09 Procedure and treatment not carried out because of other contraindication; I10 Essential (primary) hypertension; E78.5 Hyperlipidemia, unspecified; K57.90 Diverticulosis of intestine, part unspecified, without perforation or abscess without bleeding; Z79.891 Long term (current) use of opiate analgesic; Z79.899 Other long term (current) drug therapy; Z88.5 Allergy status to narcotic agent

== ENCOUNTER → 2024-02-18 | Outpatient (CLI) | payer OTHER | LOC: M PAIN 10:00 | PROVIDERS: ATTEND Anesthesiology | DX: M51.16 Intervertebral disc disorders with radiculopathy, lumbar region (principal); G89.29 Other chronic pain; I10 Essential (primary) hypertension; Z88.5 Allergy status to narcotic agent; Z79.891 Long term (current) use of opiate analgesic; Z79.899 Other long term (current) drug therapy | CPT/HCPCS: 62323; J1100; Q9967 ==

== ENCOUNTER 2024-02-22 11:28 | Emergency (ER) | payer OTHER ==
[~2024-02-22] VITALS: Ht 167.6 cm; Wt 79.5 kg
[~2024-02-22 11:28] MED LIST changes: -ISOVUE-M 300 61% 15ML VIAL As Ordered ONE; -LIDOCAINE 1% SDV 30ML VIAL As Ordered ONE; -dexAMETHasone 10MG/1ML VIAL PRES.FREE As Ordered ONE
[2024-02-22] MEDS ORDERED: ACETAMINOPHEN 325 MG TAB PO ONE (14:00)
[2024-02-22] MEDS: ANEXSIA, NORCO 7.5MG/325MG TABLET(HYDROCODONE/APAP) PO ONE (14:13)
[2024-02-22 14:40] LABS: BASO % 0.4 % (0.0-1.0); EOS # 0.2 10^3/uL (0.0-0.5); EOS % 3.2 % (0.0-3.0); HEMATOCRIT 42.7 % (42.0-52.0); HEMOGLOBIN 13.7 g/dl (13.5-17.5); LYMPH # 2.4 10^3/uL (1.5-5.0); LYMPH % 32.7 % (24.0-44.0); MEAN CORPUSCULAR HEMOGLOBIN 29.1 pg (27.0-33.0); MEAN CORPUSCULAR HGB CONC 32.1 g/dl (32.0-36.5); MEAN CORPUSCULAR VOLUME 90.7 fl (80.0-96.0); MONO # 0.5 10^3/uL (0.0-0.8); MONO % 6.7 % (2.0-8.0); NEUTROPHILS # 4.1 10^3/uL (1.5-8.5); NEUTROPHILS % 56.7 % (36.0-66.0); PLATELET COUNT, AUTOMATED 181 10^3/uL (150-450); RED BLOOD COUNT 4.71 10^6/uL (4.30-6.10); WHITE BLOOD COUNT 7.2 10^3/uL (4.0-10.0)
[2024-02-22] MEDS ORDERED: PROHANCE 279.3MG/ML 15ML VIAL As Ordered ONE (17:27)
[2024-02-22 19:45] VITALS: BP 148/81; TEMP 97.4; O2SAT 94
== END 2024-02-22 19:48 | disposition left against medical advice (07) ==
LOC: M ED 11:28
DX: M54.50 Low back pain, unspecified (principal); E11.9 Type 2 diabetes mellitus without complications; I10 Essential (primary) hypertension; G43.909 Migraine, unspecified, not intractable, without status migrainosus; Z88.5 Allergy status to narcotic agent; Z79.52 Long term (current) use of systemic steroids; Z79.899 Other long term (current) drug therapy; Z53.9 Procedure and treatment not carried out, unspecified reason
CPT/HCPCS: 36415; 72158; 80047; 85025; 99284; A9576

== ENCOUNTER → 2024-03-27 | Outpatient (CLI) | payer OTHER | LOC: M PAIN 11:30 | PROVIDERS: ATTEND Nurse Practitioner Family | DX: M51.16 Intervertebral disc disorders with radiculopathy, lumbar region (principal); M47.816 Spondylosis without myelopathy or radiculopathy, lumbar region; I10 Essential (primary) hypertension; E78.5 Hyperlipidemia, unspecified; Z79.891 Long term (current) use of opiate analgesic; Z79.899 Other long term (current) drug therapy; Z88.5 Allergy status to narcotic agent ==

== ENCOUNTER → 2024-03-29 | Outpatient (CLI) | payer OTHER ==
[~2024-03-29] MED LIST changes: +ISOVUE-300 61% 100ML VIAL As Ordered ONE; +LIDOCAINE 1% MDV 20ML VIAL As Ordered ONE; +methylPREDNISolone SUSP 40MG/ML 1ML VIAL (DEPO MEDROL) As Ordered ONE
== END ==
LOC: M RAD 09:50
PROVIDERS: ATTEND Physician Assistant
DX: M19.011 Primary osteoarthritis, right shoulder (principal)
CPT/HCPCS: 20610; 77002; J1010; Q9967

== ENCOUNTER → 2024-04-20 | Outpatient (CLI) | payer OTHER ==
[~2024-04-20] MED LIST changes: +BARIUM SULFATE 700 MG TABLET (E-Z-DISK) As Ordered ONE; +E-Z-PAQUE 96% w/w SUSP 176GM BTL As Ordered ONE; -ISOVUE-300 61% 100ML VIAL As Ordered ONE; -LIDOCAINE 1% MDV 20ML VIAL As Ordered ONE; +VARIBAR NECTAR 40% w/v 240ML SUSP BTL As Ordered ONE; +VARIBAR PUDDING 40% w/v 230ML TUBE As Ordered ONE; -methylPREDNISolone SUSP 40MG/ML 1ML VIAL (DEPO MEDROL) As Ordered ONE
== END ==
LOC: M RAD 10:50
PROVIDERS: ATTEND Otolaryngology
DX: R13.10 Dysphagia, unspecified (principal)

== ENCOUNTER → 2024-05-10 | Outpatient (CLI) | payer OTHER ==
[~2024-05-10] MED LIST changes: -BARIUM SULFATE 700 MG TABLET (E-Z-DISK) As Ordered ONE; -E-Z-PAQUE 96% w/w SUSP 176GM BTL As Ordered ONE; -VARIBAR NECTAR 40% w/v 240ML SUSP BTL As Ordered ONE; -VARIBAR PUDDING 40% w/v 230ML TUBE As Ordered ONE
== END ==
LOC: M PAIN 08:30
PROVIDERS: ATTEND Anesthesiology
DX: M54.50 Low back pain, unspecified (principal); M79.18 Myalgia, other site; G89.29 Other chronic pain; I10 Essential (primary) hypertension; E78.5 Hyperlipidemia, unspecified; Z79.891 Long term (current) use of opiate analgesic; Z79.899 Other long term (current) drug therapy; Z88.5 Allergy status to narcotic agent

== ENCOUNTER → 2024-05-15 | Outpatient (CLI) | payer OTHER, MEDICARE ==
[~2024-05-15] MED LIST changes: +ISOVUE-370 76% 100ML VIAL As Ordered ONE
== END ==
LOC: M RAD 07:21
PROVIDERS: ATTEND Internal Medicine
DX: I71.20 Thoracic aortic aneurysm, without rupture, unspecified (principal)
CPT/HCPCS: 71260; Q9967

== ENCOUNTER → 2024-05-16 | Outpatient (CLI) | payer OTHER ==
[~2024-05-16] MED LIST changes: -ISOVUE-370 76% 100ML VIAL As Ordered ONE; +NORCO, ANEXSIA 5/325MG TABLET (HYDROcodone/ACETAMINOPHEN) As Ordered ONE; +TRIAMCINOLONE ACETONIDE SUSP 40MG/ML 1ML VIAL As Ordered ONE; +diazePAM 2 MG TAB As Ordered ONE
== END ==
LOC: M PAIN 14:30
PROVIDERS: ATTEND Anesthesiology
DX: M79.18 Myalgia, other site (principal); G89.29 Other chronic pain; Z79.899 Other long term (current) drug therapy; Z88.5 Allergy status to narcotic agent
CPT/HCPCS: 20552; J0665; J3301

== ENCOUNTER 2024-05-28 12:37 | Emergency (ER) | payer MEDICARE, OTHER ==
[~2024-05-28] VITALS: Ht 167.6 cm; Wt 81.4 kg
[~2024-05-28 12:37] MED LIST changes: -NORCO, ANEXSIA 5/325MG TABLET (HYDROcodone/ACETAMINOPHEN) As Ordered ONE; -TRIAMCINOLONE ACETONIDE SUSP 40MG/ML 1ML VIAL As Ordered ONE; -diazePAM 2 MG TAB As Ordered ONE
[2024-05-28 12:41] VITALS: TEMP 97.8
[2024-05-28] MEDS: ANEXSIA, NORCO 7.5MG/325MG TABLET(HYDROCODONE/APAP) PO ONE (13:56)
[2024-05-28 15:30] VITALS: BP 149/73; O2SAT 95
== END 2024-05-28 15:47 | disposition home or self-care (01) ==
LOC: M ED 12:37
DX: S20.211A Contusion of right front wall of thorax, initial encounter (principal); W07.XXXA Fall from chair, initial encounter; I10 Essential (primary) hypertension; Y92.009 Unspecified place in unspecified non-institutional (private) residence as the place of occurrence of the external cause; Y93.89 Activity, other specified; Y99.9 Unspecified external cause status; Z88.5 Allergy status to narcotic agent; Z79.52 Long term (current) use of systemic steroids; Z79.899 Other long term (current) drug therapy

== ENCOUNTER 2024-06-14 10:02 | Outpatient (RCR) | payer MEDICARE | END 2024-06-30 | LOC: M ST 10:02 | PROVIDERS: ATTEND Otolaryngology | DX: R47.89 Other speech disturbances (principal) ==

== ENCOUNTER → 2024-08-25 | Outpatient (CLI) | payer MEDICARE, MEDICAID ==
[~2024-08-25] MED LIST changes: -AMBI10TA PO; -FLOM0.4C39 PO; +TAMS-18 PO; +ZOLP-533 PO
== END ==
LOC: M WUC 13:02
PROVIDERS: ATTEND Nurse Practitioner Adult Health
DX: R06.02 Shortness of breath (principal)

== ENCOUNTER → 2024-09-07 | Outpatient (CLI) | payer MEDICARE, MEDICAID | LOC: M WUC 12:25 | PROVIDERS: ATTEND Nurse Practitioner Adult Health | DX: I51.7 Cardiomegaly (principal); Z91.81 History of falling; I70.0 Atherosclerosis of aorta; R93.7 Abnormal findings on diagnostic imaging of other parts of musculoskeletal system ==

== ENCOUNTER 2024-12-02 11:25 | Emergency (ER) | payer MEDICAID, MEDICARE, OTHER ==
[~2024-12-02] VITALS: Ht 167.6 cm; Wt 86.8 kg
[2024-12-02 13:26] LABS: BASO # 0.0 10^3/uL (0.0-0.2); BASO % 0.3 % (0.0-1.0); EOS # 0.1 10^3/uL (0.0-0.5); EOS % 1.6 % (0.0-3.0); LYMPH # 1.9 10^3/uL (1.5-5.0); LYMPH % 21.9 % (24.0-44.0); MONO # 0.6 10^3/uL (0.0-0.8); MONO % 7.0 % (2.0-8.0); NEUTROPHILS # 6.0 10^3/uL (1.5-8.5); NEUTROPHILS % 69.1 % (36.0-66.0); PLATELET COUNT, AUTOMATED 202 10^3/uL (150-450)
[2024-12-02] MEDS ORDERED: ISOVUE-370 76% 100 ML VIAL As Ordered ONE (13:26)
[2024-12-02] MEDS: ACETAMINOPHEN 325 MG TAB PO ONE (13:50)
[2024-12-02 13:54] LABS: CALCIUM LEVEL 7.9 MG/DL (8.3-10.6); CARBON DIOXIDE LEVEL 23.0 MMOL/L (20-31); CHLORIDE LEVEL 107.0 MMOL/L (98-107); CREATININE FOR GFR 0.89 MG/DL (0.70-1.30); GLOMERULAR FILTRATION RATE 86.6 (>35); POTASSIUM SERUM 4.4 MMOL/L (3.5-5.1); SODIUM LEVEL 141.0 MMOL/L (136-145)
[2024-12-02 14:15] VITALS: BP 173/88; O2SAT 96
[2024-12-02 14:26] VITALS: TEMP 96.6
== END 2024-12-02 14:37 | disposition home or self-care (01) ==
LOC: M ED 11:25
DX: S60.222A Contusion of left hand, initial encounter (principal); S20.222A Contusion of left back wall of thorax, initial encounter; W01.198A Fall on same level from slipping, tripping and stumbling with subsequent striking against other object, initial encounter; E78.5 Hyperlipidemia, unspecified; I10 Essential (primary) hypertension; J98.11 Atelectasis; M19.042 Primary osteoarthritis, left hand; K76.0 Fatty (change of) liver, not elsewhere classified; K57.30 Diverticulosis of large intestine without perforation or abscess without bleeding; M47.812 Spondylosis without myelopathy or radiculopathy, cervical region; M47.814 Spondylosis without myelopathy or radiculopathy, thoracic region; M47.816 Spondylosis without myelopathy or radiculopathy, lumbar region; Z88.5 Allergy status to narcotic agent; Z86.79 Personal history of other diseases of the circulatory system; Y92.009 Unspecified place in unspecified non-institutional (private) residence as the place of occurrence of the external cause; Y93.89 Activity, other specified; Y99.9 Unspecified external cause status; Z79.52 Long term (current) use of systemic steroids; Z79.899 Other long term (current) drug therapy
CPT/HCPCS: 36415; 70450; 71260; 72125; 72128; 72131; 73090; 73130; 74177; 80047; 80048; 85025; 93041; 94760; 99285; Q9967

== ENCOUNTER 2025-02-27 14:13 | Emergency (ER) | payer OTHER, MEDICARE ==
[~2025-02-27] VITALS: Ht 167.6 cm; Wt 83.1 kg
[2025-02-27 14:18] VITALS: BP 124/33
[2025-02-27 14:57] VITALS: TEMP 98.1; O2SAT 98
== END 2025-02-27 16:08 | disposition left against medical advice (07) ==
LOC: M ED 14:13
DX: Z53.21 Procedure and treatment not carried out due to patient leaving prior to being seen by health care provider (principal)